=== PATIENT | female | born 1980 | race Caucasian/White ===

== ENCOUNTER 2019-04-05 04:33 | Inpatient (IN) | payer OTHER, SELFPAY ==
[2019-04-05] VITALS (7 sets, daily range): BP systolic 131–144; BP diastolic 78–85; PULSE 74–89; RESP 16–20; TEMP 36.6–37.3; O2SAT 95–99; BMI 32.3
--- NOTE | ~2019-04-05 | CT_ITS ---
EXAMINATION: CT abdomen pelvis w con DATE: 04/05/2019 06:17 INDICATION: Left sided abdominal pain with nausea, vomiting and leukocytosis TECHNIQUE: Computed tomography (CT) of the abdomen and pelvis was performed with 100 mL Omnipaque-350 intravenous contrast. Automated exposure control and iterative reconstruction technique were employe d. The dose-length product was 676.01 mGy-cm. COMPARISON: None FINDINGS: Mild dependent atelectasis in the right lower lobe. Heart size is normal. No pericardial or pleural e ffusion. Couple hepatic cysts along the julian hepatis to the larger measuring 2.[address] maximal diame ter. Pancreas, bilateral adrenal glands and left kidney are normal. Small focus of scarring at the up per pole of the right kidney likely sequela of prior infection or infarction. There is prominent jarvis pancreatic stranding with fluid extending into the bilateral anterior pararenal spaces, along the duo denum and around the colon and greater omentum in the right abdomen. Distribution suggests acute inte rstitial pancreatitis. Likely reactive edematous wall thickening of the duodenum and proximal most je junum. Appendix is normal. No bowel obstruction. 1.5 cm peripherally enhancing corpus luteum cyst at the left ovary. Uterus, bladder and right adnexa are unremarkable. Small amount of ascites primarily around the liver and in the pelvis. No free peritoneal gas or abscess. Vasculature of the abdomen and pelvis including the splenic, superior mesenteric and portal veins are normal. Moderate disc height loss and vacuum phenomena at L5-S1. Bones are otherwise unremarkable. IMPRESSION: 1. Peripancreatic inflammatory changes most consistent with radiographically uncomplicated acute inte rstitial pancreatitis. Correlate with amylase and lipase levels. Reviewed, dictated and finalized at location A. CHER FEEDER IMPRESSION: 1. Peripancreatic inflammatory changes most consistent with radiographically un complicated acute interstitial pancreatitis. Correlate with amylase and lipase levels.
--- NOTE | ~2019-04-05 | US_ITS ---
US abdomen complete INDICATION: Acute pancreatitis. PROCEDURE: Realtime right upper abdominal ultrasound. COMPARISON: No prior studies for comparison. FINDINGS: The pancreas is normal without focal mass or pancreatic ductal dilation. Liver echotexture is normal without focal mass or intrahepatic biliary dilatation. There is normal directional flow i n the portal vein. There is a small echogenic nonmobile focus of the gallbladder wall measuring 4 mm, consistent with po lyp. No gallstones, gallbladder wall thickening or pericholecystic fluid. Common bile duct measures 4 mm. Positive sonographic Goff's sign. IMPRESSION: 1: Gallbladder polyp measuring 4 mm. Positive sonographic Goff's sign, nonspecific. Consider acalcu lous cholecystitis in the appropriate clinical setting. Correlate with nuclear hepatobiliary scan as clinically indicated. Reviewed, dictated and finalized at location A. ACE HAND IMPRESSION: 1: Gallbladder polyp measuring 4 mm. Positive sonographic Goff's sign, nonspe cific. Consider acalculous cholecystitis in the appropriate clinical setting. C orrelate with nuclear hepatobiliary scan as clinically indicated.
[2019-04-05] MEDS: SODIUM CHLORIDE 0.9% IV 1,000 ML 999 ML IV CONT (04:59)
[2019-04-05] MEDS: METOCLOPRAMIDE HCL INJ 10 MG/2 ML VIAL IV PUSH (04:59)
[2019-04-05 05:18] LABS: Hematocrit 43.4 % (35.0-49.0); Hemoglobin 14.1 g/dL (12.0-15.0); Mean Corpuscular HGB Conc 32.5 g/dL (32.0-36.0); Mean Corpuscular Hemoglobin 26.8 pg (27.0-31.0); Mean Corpuscular Volume 82.4 fL (78.0-102.0); Mean Platelet Volume 10.1 fl (9.2-11.8); Platelet Count Result 304 K/mm3 (150-420); Red Blood Count 5.27 M/mm3 (4.20-5.40); Red Cell Distribution Width 13.9 % (11.6-14.4)
[2019-04-05 05:19] LABS: Appearance Urine Clear (Clear); Bilirubin Urine 1+ (Negative); Blood Urine 2+ (Negative); Color Urine Amber (Yellow); Glucose Urine UA Negative (Negative); Ketones Urine 2+ (Negative); Leukocyte Esterase Ur Negative (Negative); Nitrate Urine Negative (Negative); Protein Urine 2+ (Negative); Specific Grav Ur >= 1.030 (1.010-1.020); Urobilinogen Urine 0.2 mg/dL (0.2-1.0); pH Urine 5.5 (5.0-8.0)
--- NOTE | 2019-04-05 05:22 | ED.ABDPAIN ---
HPI - Abdominal Pain General Chief Complaint: Abdominal Pain Stated Complaint: vomitting Source: patient Mode of arrival: ambulatory History of Present Illness HPI narrative: Ms. Marquez is a 38 year old woman in a general state of good health who reports that she started to feel nauseated in the afternoon on 04/04/19. This gave way quickly to vomiting. Her nausea has persisted strongly. She now has abdominal pain. No diarrhea. No sick contacts. Related Data Allergies Allergy/AdvReac Type Severity Reaction Status Date / Time No Known Allergies Allergy Unknown Verified 03/10/07 17:24 Review of Systems Constitutional: Constitutional: Denies fatigue, Denies fever(s) and Denies weakness Eyes: Eyes: Denies blurry vision, Denies itchy eyes and Denies other visual disturbances ENT: Denies dizziness, Denies hearing loss, Denies nasal discharge and Denies sore throat Cardiovascular: Cardiovascular: Denies chest pain and Denies dyspnea Respiratory: Respiratory: Denies cough, Denies dyspnea and Denies wheezing Gastrointestinal: Gastrointestinal: Denies diarrhea, Denies nausea and Denies vomiting Genitourinary: Genitourinary: Denies difficulty starting urination, Denies dysuria and Denies urinary urgency Musculoskeletal: Musculoskeletal: Denies arthralgias and Denies muscle weakness Integumentary/Breasts: Skin/Breast: Denies rash and Denies wounds Neurologic: Denies dizziness and Denies weakness Psychiatric: Psychiatric: Denies anxiety, Denies depression and Denies suicidal ideation Endocrine: Endocrine: Denies cold intolerance, Denies fatigue and Denies heat intolerance Allergic/Immunologic: Allergic/Immunologic: Denies itchy eyes, Denies seasonal rhinorrhea and Denies wheezing PMFSH Social History Social History Smoking status: Never smoker Alcohol intake: current Exam Const: General: cooperative, healthy appearing, no acute distress, well developed and alert; No poor hygiene Nutritional Appearance: average body habitus Orientation/consciousness: oriented to person, oriented to place and oriented to time Limitations: No physical limitations HENMT: Head: normal to inspection Ears: hearing grossly normal bilaterally and external ears normal General nose exam: external nose normal Face and sinus: face symmetric and no abrasions Mouth: Yes oral mucosae normal, Yes lip normal, Yes tongue normal, Yes moist mucous membranes and No drooling Teeth and gingiva: dentition normal and gingiva normal Throat: posterior oropharynx normal and uvula midline Eyes: General: appearance normal, both eyes and all related structures Periorbital: periorbital findings normal Eyelids: eyelids normal Conjunctivae: conjunctivae normal Pupils: PERRL EOM: EOM intact bilaterally Neck: Neck: normal visual inspection Resp: Effort & Inspection: able to speak in complete sentences and no respiratory distress Auscultation: clear to auscultation bilaterally, no crackles, no rhonchi and no wheezes Cardio: Jugular venous distension: no JVD Rate: regular rate Rhythm: regular rhythm Heart sounds: no gallops, no murmurs and no rubs Skin: General skin exam: no rashes or lesions noted Trauma: no lacerations or abrasions Neuro: General: oriented to person, oriented to place and oriented to time Cranial nerves: Yes CN's II-XII intact bilaterally and Yes PERRL Cognition (Neuro): normal cognition Speech: normal speech Psych: Appearance: grossly normal Mental Status: mental status grossly normal Affect: normal affect Thought process: normal thought process Course Course Emergency Course: Primary survey revealed a hemodynamically stable woman in some obvious pain distress. Exam showed diffuse tenderness. Labs and CT ordered. IVF and reglan were not effective. Toradol added. This was also uneffective. Dilaudid given with significant improvement. Amylase and Lipase were dramatically elevated. Patient received 1 point on [place] Score (for WBC). The
[2019-04-05 05:28] LABS: Add Urine Microscopic? YES; Bacteria Urine 4+ /hpf; Squamous Epithelial Cell Urine Moderate /hpf (Few); WBC Urine 0-3 /hpf (0-3)
[2019-04-05 05:30] LABS: White Blood Count 24.6 K/mm3 (4.8-10.8)
[2019-04-05 05:35] LABS: Alanine Aminotransferase 19 U/L (14-59); Albumin Level 3.9 g/dL (3.4-5.0); Alkaline Phosphatase 47 U/L (46-116); Aspartate Amino Transferase 22 U/L (15-37); Bilirubin,Total 0.5 mg/dL (0.00-1.00); Blood Urea Nitrogen 18 mg/dL (7-18); Calcium 7.9 mg/dL (8.5-10.1); Carbon Dioxide 24 mmol/L (21-32); Chloride 105 mmol/L (98-108); Estimated Glomerular Filt Rate 57; Glucose 168 mg/dL (70-99); Osmolality Calculated 299 mOsm/kg (285-295); Sodium 142 mmol/L (136-145); Total Protein 7.4 g/dL (6.4-8.2)
[2019-04-05 05:36] LABS: Troponin I < 0.02 ng/mL (0.00-0.056)
[2019-04-05] MEDS: KETOROLAC 30 MG/ML VIAL (*BKC) IV PUSH (05:40)
[2019-04-05 05:56] LABS: Amylase 4015 U/L (25-115)
[2019-04-05] MEDS: HYDROMORPHONE HCL 2 MG/ML VIAL 1 MG IV PUSH ×6 (05:57→18:29)
--- NOTE | 2019-04-05 05:59 | PC.NURSE ---
pt to ct per stretcher with xray staff. pt resting calmly, still per cot.
[2019-04-05 06:11] LABS: Lipase 21501 U/L (73-393)
[2019-04-05 06:24] LABS: Lactic Acid 1.6 mmol/L (0.4-2.0)
--- NOTE | 2019-04-05 07:51 | PC.NURSE ---
0730 pt to go to room 209 for full admission.
--- NOTE | 2019-04-05 08:00 | PC.NURSE ---
admitting orders per dr brown. order for inpatient noted.
[2019-04-05] MEDS: SODIUM CHLORIDE 0.9% IV 1,000 ML 125 ML IV CONT (08:33)
--- NOTE | 2019-04-05 08:45 | ADMGEN ---
This patient, Danielle Marquez, was admitted to 2nd Floor Room 209-1. Patient/family oriented to hospital policies and general routines including ID bracelet, bed and alarms, visiting hours, pain management, procedures, bathroom and other care routines, personal items, smoking policy, room service/diet, and visiting hours. Valuables list has been completed. Information on how to activate the Rapid Response Team has been discussed. Patient/Family are encouraged to report perceived risks to care and to ask questions if they do not understand what they are told or what they should do.
[2019-04-05] MEDS: FAMOTIDINE 20 MG/ISO 50 ML 20 MG/50 ML BAG 100 MG IVPB (10:15)
[2019-04-05 10:34] LABS: Appearance Urine Clear (Clear); Bilirubin Urine Negative (Negative); Blood Urine 3+ (Negative); Color Urine Yellow (Yellow); Glucose Urine UA Negative (Negative); Ketones Urine 1+ (Negative); Leukocyte Esterase Ur Negative LEU/UL (Negative); Nitrate Urine Negative (Negative); Protein Urine Trace (Negative); Urobilinogen Urine 0.2 mg/dL (0.2-1.0); pH Urine 5.5 (5.0-8.0)
[2019-04-05 10:47] LABS: Amphetamine Screen Urine Negative (Negative); Barbiturate Screen Urine Negative (Negative); Benzodiazepines Screen Urine Negative (Negative); Cannabinoid Screen Urine Positive (Negative); Cocaine Screen Urine Negative (Negative); Methadone Screen Urine Negative (Negative); Opiate Screen Urine Positive (Negative); Phencyclidine Screen Urine Negative (Negative)
[2019-04-05 10:52] LABS: Add Urine Microscopic? YES; RBC Urine 0-2 /hpf (0-2); Squamous Epithelial Cell Urine Few /hpf (Few); WBC Urine 0-3 /hpf (0-3)
[2019-04-05 10:53] LABS: Bacteria Urine 1+ /hpf
--- NOTE | 2019-04-05 11:00 | PC.NURSE ---
Abdominal ultrasound being performed on pt in room.
[2019-04-05] MEDS: ONDANSETRON INJ 4 MG/2 ML VIAL IV PUSH (13:30)
[2019-04-05] MEDS: LIDOCAINE 5% PATCH 2 PATCH TRANSDERM (13:35)
--- NOTE | 2019-04-05 15:29 | PM.IMHP ---
H&P: HPI History of Present Illness Chief complaint: vomitting Narrative: Danielle Marquez is a 38 year old female admitted earlier this morning. She stated that she was fine until yesterday evening. She reported that her family went out for [place] food for dinner, then around 6pm she started vomiting without relief until 2am. With no relief, she asked her to bring her to the ER around 4am. She stated that she threw up her dinner and then green bile for emesis. No complaints of pain until vomiting started. 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 She also does report having more fried foods during the holidays than usual. Current Urine toxic screen + Cannabinoids, History of Tubal Ligation, History of Excision of Left Breast Retro Aerolar Mass by Dr. Solis in January 2019 (with prior Breast Infection at the same site in August 2017), No prior history of Hyperlipidemia, No previous cholecyctitis or pancreatitis, No alcohol abuse (reports 1 wine daily, 1 shot with New Years), No history of nicotine/cigarette smoking, No history of DM. Drinks 1 glass wine daily and 1 diet mountain dew daily. Review of Systems Review of Systems: All systems reviewed & are unremarkable except as noted in HPI and below Constitutional: Constitutional: Reports as per HPI, Denies fatigue, Denies fever(s) and Denies weakness Eyes: Eyes: Denies blurry vision, Denies itchy eyes and Denies other visual disturbances ENT: Denies dizziness, Denies hearing loss, Denies nasal discharge and Denies sore throat Cardiovascular: Cardiovascular: Reports as per HPI, Denies chest pain and Denies dyspnea Respiratory: Respiratory: Reports as per HPI, Denies cough, Denies dyspnea and Denies wheezing Gastrointestinal: Gastrointestinal: Reports as per HPI, Reports abdominal pain, Reports bloating, Reports GI cramping, Reports heartburn, Denies diarrhea, Denies nausea and Denies vomiting Comments: Nausea and Vomiting . Abdominal discomfort with ice chips or any oral intake. Genitourinary: Genitourinary: Denies urinary frequency, Denies dysuria and Denies urinary urgency Musculoskeletal: Musculoskeletal: Reports as per HPI, Denies arthralgias and Denies muscle weakness Integumentary/Breasts: Skin/Breast: Reports as per HPI, Denies rash and Denies wounds Neurologic: Reports as per HPI, Denies dizziness and Denies weakness Psychiatric: Psychiatric: Reports as per HPI, Denies anxiety, Denies depression and Denies suicidal ideation Endocrine: Endocrine: Denies cold intolerance, Denies fatigue and Denies heat intolerance Allergic/Immunologic: Allergic/Immunologic: Denies itchy eyes, Denies seasonal rhinorrhea and Denies wheezing PMFSH Surgical History Surgical History (Updated 04/05/19 @ 17:04 by Jennifer Jaime NP) H/O tubal ligation History of breast lump/mass excision Family History Family History (Updated 04/05/19 @ 17:06 by Jennifer Jaime NP) Father Hypertension Mother Cholecystectomy planned Sibling , Brother - MVA Motor vehicle accident victim Other Breast cancer Social History Social History Smoking status: Never smoker Alcohol intake: never Substance use: never Substance use type: does not use Gender identity (if verbalized by the patient): Female Spiritual care concerns: No Agree to blood products: Yes Meds Home Medications and Allergies Home Medications Medication Instructions Recorded Confirmed Type mirtazapine 15 mg tablet 15 mg PO DAILY #30 tablet 02/22/19 04/05/19 Rx trazodone 50 mg tablet 50 mg PO .HS #30 tablet 03/26/19 04/05/19 Rx hydromorphone 1 mg IVPUSH Q3H PRN 1 Days ml 04/05/19 Rx Allergies Allergy/AdvReac Type Severity Reaction Status Date / Time No Known Allergies Allergy Unknown Verified 03/10/07 17:24 Vital Signs Vital Signs - 24 hr 04/05/19 04:50 04/05/19 07:52 04/05/19 08:05 Temperature 37.0 C 36.6 C 36.8 C Pulse Ra
[2019-04-05] MEDS: metroNIDAZOLE 500 MG/ISO 100ML 500 MG/100 ML BAG 100 MG IVPB (16:13)
[2019-04-05] MEDS: PROCHLORPERAZINE EDISYLATE 10 MG/2 ML VIAL IV PUSH (17:47)
[2019-04-05] MEDS: SODIUM CHLORIDE 0.9% IV 1,000 ML 200 ML IV CONT (17:58)
--- NOTE | 2019-04-05 18:08 | PC.NURSE ---
Patient attempted to get up into recliner, was only able to tolerate for a few minutes before getting back in bed. Patient given a warm blanket to hold on abdomen for comfort
--- NOTE | 2019-04-05 19:25 | PC.NURSE ---
Received call from [facility], bed is now available at [place]. Patient will be transferred to Room 212 bed B
--- NOTE | 2019-04-05 19:30 | PC.NURSE ---
Report called to Miguel at [place]
--- NOTE | 2019-04-05 19:35 | PC.NURSE ---
RN called [facility] service to request ALS transfer of patient. None available until 2200. RN will call again if no one else available
--- NOTE | 2019-04-05 19:37 | PC.NURSE ---
RN called [facility] ambulance service to request ALS transfer for patient. None available at this time. Asha will call back when ambulance becomes available
--- NOTE | 2019-04-05 19:40 | PC.NURSE ---
[facility] ambulance service called for transfer, none available
--- NOTE | 2019-04-05 19:45 | PC.NURSE ---
[facility] ambulance service called for ALS transfer of patient. [facility] accepts patient for transfer at [id number]
[2019-04-05 20:08] LABS: Hematocrit 42.7 % (35.0-49.0); Hemoglobin 13.9 g/dL (12.0-15.0); Mean Corpuscular HGB Conc 32.6 g/dL (32.0-36.0); Mean Corpuscular Hemoglobin 27.3 pg (27.0-31.0); Mean Corpuscular Volume 83.7 fL (78.0-102.0); Mean Platelet Volume 9.8 fl (9.2-11.8); Platelet Count Result 288 K/mm3 (150-420); Red Cell Distribution Width 14.4 % (11.6-14.4)
[2019-04-05 20:12] LABS: White Blood Count 30.6 K/mm3 (4.8-10.8)
[2019-04-05 20:28] LABS: Alanine Aminotransferase 18 U/L (14-59); Albumin Level 3.2 g/dL (3.4-5.0); Alkaline Phosphatase 41 U/L (46-116); Anion Gap 13.7 mmol/L (7-16); Aspartate Amino Transferase 24 U/L (15-37); Bilirubin,Total 0.4 mg/dL (0.00-1.00); Blood Urea Nitrogen 17 mg/dL (7-18); Carbon Dioxide 25 mmol/L (21-32); Chloride 108 mmol/L (98-108); Estimated CRCL calculation 73 ml/min; Estimated Glomerular Filt Rate > 60; Glucose 112 mg/dL (70-99); Osmolality Calculated 298 mOsm/kg (285-295); Potassium 3.7 mmol/L (3.5-5.1); Sodium 143 mmol/L (136-145); Total Protein 6.3 g/dL (6.4-8.2)
--- NOTE | 2019-04-05 20:30 | PC.NURSE ---
Asha from [place] ambulance service called, she will page out for ambulance for transfer. RN called and cancelled Jarred.
[2019-04-05 20:41] LABS: Calcium 5.9 mg/dL (8.5-10.1)
[2019-04-05 20:44] LABS: Amylase 2449 U/L (25-115); Lipase 10618 U/L (73-393)
[2019-04-05] MEDS: HYDROMORPHONE HCL 2 MG/ML VIAL 0.5 MG IV PUSH (20:55)
--- NOTE | 2019-04-05 20:58 | PC.NURSE ---
MD notified that patient is moaning and c/o pain. Ambulance crew requested order for prn for during transport if patient was experiencing pain. New order recieved for Morphine 4mg prn during transfer.
--- NOTE | 2019-04-05 21:00 | PC.NURSE ---
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 Patient ambulated from bed to stretcher. Patient off floor en route to [facility]. Miguel at [facility] notified patient en route
--- NOTE | 2019-04-06 05:32 | PM.EVENT ---
Event Note Event Note: For 04/05/19: Patient states pain medicines are helping somewhat, but pain is escalating. Vitals remained stable. Normal cardiovascular and lung exam. No peritoneal signs at this time. Surgical consultation therefore transfers appropriate at this time. Have reviewed the chart and examined the patient. Discussed patient's care A Addison AMARO and agree with her assessment plan.
== END 2019-04-05 21:00 | disposition short-term general hospital (02) | DRG 282 ==
LOC: CHSED 07:31 → CHS2ND 07:32
PROVIDERS: Nurse Practitioner; Admitting Provider Emergency Medicine; Emergency Provider Emergency Medicine; PCP Family Medicine; Visit Provider Emergency Medicine
DX: K85.90 Acute pancreatitis without necrosis or infection, unspecified (principal); K81.0 Acute cholecystitis
CPT/HCPCS: 36415; 74177; 76700; 80053; 80307; 81001; 82150; 83605; 83690; 84484; 85027; 87040; 87077; 87086; 96361; 96365; 96375; 99284; 99285; A9270; J0696; J0780; J1170; J1885; J2405; J2543; J2765; J7030; Q9965

== ENCOUNTER 2019-08-14 12:58 | Outpatient (CLI) | payer OTHER, SELFPAY ==
[2019-08-14 14:30] LABS: Alanine Aminotransferase 18 U/L (14-59); Albumin Level 3.9 g/dL (3.4-5.0); Alkaline Phosphatase 56 U/L (46-116); Anion Gap 14.2 mmol/L (7-16); Aspartate Amino Transferase 18 U/L (15-37); Bilirubin,Total 0.1 mg/dL (0.00-1.00); Blood Urea Nitrogen 12 mg/dL (7-18); Carbon Dioxide 28 mmol/L (21-32); Chloride 103 mmol/L (98-108); Estimated Glomerular Filt Rate > 60; Glucose 82 mg/dL (70-99); Osmolality Calculated 290 mOsm/kg (285-295); Potassium 4.2 mmol/L (3.5-5.1); Sodium 141 mmol/L (136-145); Thyroid Stimulating Hormone 0.48 uIU/mL (0.36-3.74); Vitamin B12 593 pg/mL (193-986)
[2019-08-18 09:44] LABS: Vitamin D 25 Hydroxy 37 ng/mL (30-100)
== END 2019-08-14 12:59 | disposition home or self-care (01) ==
LOC: CHSLAB 13:01
PROVIDERS: PCP Nurse Practitioner Family; Visit Provider Nurse Practitioner Family
DX: L65.9 Nonscarring hair loss, unspecified (principal); E55.9 Vitamin D deficiency, unspecified
CPT/HCPCS: 36415; 80053; 82306; 82607; 84443

== ENCOUNTER 2019-10-25 04:34 | Emergency (ER) | payer OTHER, SELFPAY ==
[2019-10-25] VITALS (7 sets, daily range): BP systolic 95–160; BP diastolic 50–92; PULSE 65–109; RESP 16–20; TEMP 36.6–36.9; O2SAT 96–100
--- NOTE | ~2019-10-25 | CT_ITS ---
EXAMINATION: CT abdomen pelvis wo con DATE: 10/25/2019 06:40 INDICATION: Generalized abdominal pain. Hematuria. TECHNIQUE: Computed tomography (CT) of the abdomen and pelvis was performed without intravenous contr ast. Automated exposure control and iterative reconstruction technique were employed. The dose-length product was 499.32 mGy-cm. COMPARISON: CT abdomen and pelvis 04/05/2019 FINDINGS: The visualized portions of the lung bases are clear without pneumonia or pleural effusion. The heart size is normal. No pericardial effusion. There is a 2.1 cm cyst in the liver. There are sofi nges of cholecystectomy. The spleen is normal. There is fat stranding around the uncinate process of the pancreas. The adrenal glands and kidneys are normal. There is no urolithiasis. There is a 3.9 x 2 .4 cm mass anterior and to the right of the pancreas. There is diverticulosis of the colon without ev idence of diverticulitis. The appendix is normal. There are no pathologically enlarged lymph nodes. T here is a small volume of pelvic ascites. There is severe lower lumbar spondylosis. IMPRESSION: 1. Fat stranding around the uncinate process of the pancreas, consistent with acute pancreatitis. 2. New mass anterior and to the right of the pancreas, most likely fat necrosis from acute pancreatit is. Reviewed, dictated and finalized at location A. IMPRESSION: 1. Fat stranding around the uncinate process of the pancreas, consistent with a cute pancreatitis. 2. New mass anterior and to the right of the pancreas, most likely fat necrosis from acute pancreatitis.
[2019-10-25] MEDS: HYDROmorphone HCL 2 MG/ML VIAL 1 MG IV PUSH ×5 (05:13→20:58)
[2019-10-25] MEDS: SODIUM CHLORIDE 0.9% IV 1,000 ML 999 ML IV CONT ×3 (05:14→11:13)
[2019-10-25] MEDS: ONDANSETRON INJ 4 MG/2 ML VIAL IV PUSH ×5 (05:14→22:03)
[2019-10-25 05:20] LABS: Basophils Absolute Auto 0.04 K/mm3 (0.00-0.10); Basophils Percent Auto 0.3 % (0.0-1.0); Eosinophils Absolute Auto 0.32 K/mm3 (0.02-0.50); Hematocrit 44.2 % (35.0-49.0); Hemoglobin 14.4 g/dL (12.0-15.0); Immature Granulocyte Absolute 0.05 K/mm3 (0.00-0.00); Immature Granulocyte Percent A 0.3 % (0.0-0.0); Lymphocytes Absolute Auto 0.71 K/mm3 (1.10-4.50); Lymphocytes Percent Auto 4.5 % (18.0-42.0); Mean Corpuscular HGB Conc 32.6 g/dL (32.0-36.0); Mean Corpuscular Hemoglobin 28.1 pg (27.0-31.0); Mean Corpuscular Volume 86.2 fL (78.0-102.0); Mean Platelet Volume 9.6 fl (9.2-11.8); Monocytes Percent Auto 7.6 % (2.0-11.0); Neutrophils Absolute Auto 13.6 K/mm3 (1.7-7.2); Neutrophils Percent Auto 85.3 % (50.0-70.0); Platelet Count Result 272 K/mm3 (150-420); Red Blood Count 5.13 M/mm3 (4.20-5.40); Red Cell Distribution Width 14.7 % (11.6-14.4); White Blood Count 15.9 K/mm3 (4.8-10.8)
[2019-10-25 05:34] LABS: Alanine Aminotransferase 27 U/L (14-59); Albumin Level 3.7 g/dL (3.4-5.0); Alkaline Phosphatase 64 U/L (46-116); Amylase 70 U/L (25-115); Anion Gap 11.1 mmol/L (7-16); Aspartate Amino Transferase 21 U/L (15-37); Bilirubin,Total 0.2 mg/dL (0.00-1.00); Blood Urea Nitrogen 16 mg/dL (7-18); CRP 0.9 mg/dL (0.0-0.9); Calcium 9.3 mg/dL (8.5-10.1); Carbon Dioxide 30 mmol/L (21-32); Chloride 105 mmol/L (98-108); Estimated CRCL calculation 57 ml/min; Estimated Glomerular Filt Rate 53; Glucose 91 mg/dL (70-99); Lipase 109 U/L (73-393); Osmolality Calculated 295 mOsm/kg (285-295); Potassium 4.1 mmol/L (3.5-5.1); Sodium 142 mmol/L (136-145); Total Protein 7.5 g/dL (6.4-8.2)
[2019-10-25 05:49] LABS: Add Urine Microscopic? YES; Appearance Urine Clear (Clear); Bilirubin Urine Negative (Negative); Blood Urine 2+ (Negative); Color Urine Yellow (Yellow); Glucose Urine UA Negative (Negative); Ketones Urine Trace (Negative); Leukocyte Esterase Ur Negative LEU/UL (Negative); Nitrate Urine Negative (Negative); Protein Urine Negative (Negative); Urobilinogen Urine 0.2 mg/dL (0.2-1.0); pH Urine 6.5 (5.0-8.0)
--- NOTE | 2019-10-25 05:50 | PC.NURSE ---
Pt. is resting comfortable, dozing no c/o a this time.
[2019-10-25 06:03] LABS: Bacteria Urine 1+ /hpf; Squamous Epithelial Cell Urine Many /hpf (Few); WBC Urine 0-3 /hpf (0-3)
--- NOTE | 2019-10-25 06:11 | ED.ABDPAIN ---
HPI - Abdominal Pain General Chief Complaint: Abdominal Pain <Song Kumar MD - Last Filed: 10/25/19 07:18> Stated Complaint: vomiting <Song Kumar MD - Last Filed: 10/25/19 07:18> Time Seen by Provider: 10/25/19 10:28 <Song Kumar MD - Last Filed: 10/25/19 07:18> Source: RN notes reviewed <Song Kumar MD - Last Filed: 10/25/19 07:18> Mode of arrival: ambulatory <Song Kumar MD - Last Filed: 10/25/19 07:18> Limitations: no limitations <Song Kumar MD - Last Filed: 10/25/19 07:18> History of Present Illness HPI narrative: patient has a long history of abdominal problems and pancreatitis. She has been to [place] multiple times and had multiple CT scans. She has a history of pseudocysts. She had cholecystectomy done. She is currently seeing GI specialist. She began having pain last evening approximately 9:00 p.m.. She had some diarrhea and tried to write out the pain at home. She started vomiting she thought her pancreatitis had returned and she came in for evaluation. She denies any fever chills. <Song Kumar MD - Last Filed: 10/25/19 07:18> MD elicited complaint: abdominal pain <Song Kumar MD - Last Filed: 10/25/19 07:18> Pertinent past history: other (pancreatitis) <Song Kumar MD - Last Filed: 10/25/19 07:18> Onset (ago): hour(s) (7) <Song Kumar MD - Last Filed: 10/25/19 07:18> Pain Consistency: constant <Song Kumar MD - Last Filed: 10/25/19 07:18> Location: diffuse <Song Kumar MD - Last Filed: 10/25/19 07:18> Severity: severe <Song Kumar MD - Last Filed: 10/25/19 07:18> Quality: cramping and sharp <MD Jim Jiménez Last Filed: 10/25/19 07:18> Migration to: no migration <Song Kumar MD - Last Filed: 10/25/19 07:18> Exacerbating factors: nothing <Song Kumar MD - Last Filed: 10/25/19 07:18> Relieving factors: nothing <Song Kumar MD - Last Filed: 10/25/19 07:18> Context: confirms history of similar episodes <Song Kumar MD - Last Filed: 10/25/19 07:18> Associated symptoms: vomiting and diarrhea <Song Kumar MD - Last Filed: 10/25/19 07:18> Related Data Home Medications: Home Medications Medication Instructions Recorded Confirmed omeprazole magnesium 20 mg 20 mg PO DAILY 08/08/19 10/25/19 capsule,delayed release [id number] [Creon] 1 cap PO DAILY 10/25/19 10/25/19 <Song Kumar MD - Last Filed: 10/25/19 07:18> Allergies/Adverse Reactions: Allergies Allergy/AdvReac Type Severity Reaction Status Date / Time No Known Allergies Allergy Unknown Verified 10/24/19 16:37 <Song Kumar MD - Last Filed: 10/25/19 07:18> Review of Systems Constitutional: Constitutional: Denies chills and Denies fever(s) <Song Kumar MD - Last Filed: 10/25/19 07:18> Eyes: Eyes: Reports no additional eye complaints <Song Kumar MD - Last Filed: 10/25/19 07:18> ENT: Reports system reviewed and no additional complaints, except as documented <Song Kumar MD - Last Filed: 10/25/19 07:18> Cardiovascular: Cardiovascular: Reports no additional cardiovascular complaints <Song Kumar MD - Last Filed: 10/25/19 07:18> Respiratory: Respiratory: Reports no additional respiratory complaints <Song Kumar MD - Last Filed: 10/25/19 07:18> Gastrointestinal: Gastrointestinal: Reports as per HPI <Song Kumar MD - Last Filed: 10/25/19 07:18> Genitourinary: Genitourinary: Reports no additional female genitourinary complaints <Song Kumar MD - Last Filed: 10/25/19 07:18> Musculoskeletal: Musculoskeletal: Reports no additional musculoskeletal complaints <Song Kumar MD - Last Filed: 10/25/19 07:18> Integumentary/Breasts: Skin/Breast: Reports system reviewed and no additional complaints, except as docu <Song Kumar MD - Last Filed: 10/25/19 07:18> Neurologic: Reports
--- NOTE | 2019-10-25 07:07 | PC.NURSE ---
Call placed to [facility] where pts. GI Drs. are located. Pt. requests transfer to [facility] for further care. ERP requests call to hospitalist or GI specialist. Spoke to transfer center, will consult c GI,
--- NOTE | 2019-10-25 07:39 | PC.NURSE ---
Pt. now requesting transfer to [facility] and to see GI specialist at [facility] Will await call back from hospitalist.
--- NOTE | 2019-10-25 07:58 | PC.NURSE ---
Call back from Dr. Kitchen at [facility]. ERP speaking c and he requests pt. to see her original Drs. as their GI Drs won't accept for this hx of complication. Call back then received from [facility] and ERP spoke to Dr. Ochoa for possible transfer.
[2019-10-25] MEDS: METOCLOPRAMIDE HCL INJ 10 MG/2 ML VIAL IV PUSH (08:20)
--- NOTE | 2019-10-25 10:22 | PC.NURSE ---
Call placed back to [facility] for bed assignment. Pt. is on list and awaiting bed assignment. ERP notified and is going to make pt. ER hold until bed is available.
--- NOTE | 2019-10-25 10:45 | PC.NURSE ---
Report given to Breana Martínez and pt. will go to Rm 203 for ER hold.
--- NOTE | 2019-10-25 11:05 | PC.NURSE ---
Dr. Belle made aware of patient saw yesterday and was put on Clindamycin for breast infection. Patient forgot to tell ED staff of information until up on floor for ER HOLD.
--- NOTE | 2019-10-25 11:05 | PC.NURSE ---
Admitted to 203 for ER hold, awaiting bed at [facility], requesting medication that was prescribed yesterday by Dr Prajapati for breast infection, Dr Belle reports this med not needed at this time, patient made aware, oriented to room and call system,
--- NOTE | 2019-10-25 11:20 | PC.NURSE ---
Dilaudid given for pain in abdomen
--- NOTE | 2019-10-25 11:41 | PC.NURSE ---
No evidence of pain, fluids infusing and playing on phone
--- NOTE | 2019-10-25 12:12 | PC.NURSE ---
No increase in pain, fluids infusing, npo as ordered,
--- NOTE | 2019-10-25 13:15 | PC.NURSE ---
Resting in bed, no vomiting, no increase in pain, saline lock in place, remains NPO at this time, continue to wait for bed at [facility]
--- NOTE | 2019-10-25 14:15 | PC.NURSE ---
Resting in bed, awaiting bed assignment from [facility]
--- NOTE | 2019-10-25 15:58 | PC.NURSE ---
pt c/o dry mouth and that she will not make it the whole stay without her anxiety medicine, asks for ice chips, has declined and will start her on fluids
[2019-10-25] MEDS: SODIUM CHLORIDE 0.9% IV 1,000 ML 100 ML (16:00)
--- NOTE | 2019-10-25 16:01 | PC.NURSE ---
[facility] CALLED TO INFORM [facility] THAT THEY DO NOT HAVE A BED READY FOR THE PATIENT BUT ARE STILL WORKING ON IT. 2ND FLOOR STAFF MADE AWARE.
--- NOTE | 2019-10-25 18:09 | PC.NURSE ---
pt states her head hurts, asks for something different for pain, friend is in room, feeling nauseous, aware charge nurse is calling dr about getting her anxiety medicine
--- NOTE | 2019-10-25 21:01 | PC.NURSE ---
pt is crying, asking for xanax and trazadone, states she is having an anxiety attack and will leave soon if dr does not order her something, requests fluids be turned off or faster so she does not have to sleep with them on, charge nurse to notify
[2019-10-25] MEDS: LORazepam 0.5 MG TABLET PO (22:01)
--- NOTE | 2019-10-26 00:12 | PC.NURSE ---
Pt resting quietly in bed and doesnt voice any c/o abdominal pain. No signs of discomfort noted.
[2019-10-26 00:15] VITALS: PULSE 70; RESP 20; TEMP 36.8; O2SAT 100
--- NOTE | 2019-10-26 01:25 | PC.NURSE ---
[facility] called and said they will be getting the patient a bed at [facility] in the AM. Pt asleep and no signs of discomfort noted.
--- NOTE | 2019-10-26 02:21 | PC.NURSE ---
Pt asleep and no signs of discomfort noted.
--- NOTE | 2019-10-26 03:11 | PC.NURSE ---
Pt asleep and no signs of discomfort noted.
--- NOTE | 2019-10-26 04:21 | PC.NURSE ---
Pt asleep and no signs of discomfort noted.
--- NOTE | 2019-10-26 05:12 | PC.NURSE ---
Pt asleep and no signs of discomfort noted.
--- NOTE | 2019-10-26 06:08 | PC.NURSE ---
Pt asleep and no signs of discomfort noted.
--- NOTE | 2019-10-26 06:49 | PC.NURSE ---
Dr. Belle contacted for a diet order. NPO diet order received.
[2019-10-26 07:35] VITALS: BP 133/93; PULSE 101; RESP 18; TEMP 36.8; O2SAT 95
[2019-10-26] MEDS: LORazepam 0.5 MG TABLET PO ×3 (07:51→21:15)
--- NOTE | 2019-10-26 07:51 | PC.NURSE ---
Ativan given for anxiety, feels no one is paying attention to her needs, advised would have ER doctor review everything and be in to see her, pain in abdomen is gone, now having headache,
[2019-10-26] MEDS: MORPHINE SULFATE 2 MG/ML INJ IV PUSH ×2 (07:52→14:11)
--- NOTE | 2019-10-26 07:52 | PC.NURSE ---
Morphine 2 mg given for anxiety and pain in head, denies nausea initially, now having nausea
[2019-10-26] MEDS: ONDANSETRON INJ 4 MG/2 ML VIAL IV PUSH ×2 (08:01→14:11)
--- NOTE | 2019-10-26 08:01 | PC.NURSE ---
Zofran 4mg given for nausea
--- NOTE | 2019-10-26 08:05 | PC.NURSE ---
Dr Arellano at the bedside for examination, reviewed her complaint and assessed her breast pain/infection, no redness noted at this time
--- NOTE | 2019-10-26 10:00 | PC.NURSE ---
Continues to have pain in her head, awaiting bed at [facility] at this time
[2019-10-26] MEDS: ACETAMINOPHEN 500 MG TABLET 1000 MG PO (10:35)
--- NOTE | 2019-10-26 10:40 | PC.NURSE ---
Tylenol given for headache, here with patient, no bed at this time from [facility]
--- NOTE | 2019-10-26 12:28 | PC.NURSE ---
This nurse spoke with Cyndee on the [facility] one call line([phone]). States placement for patient is still not available. Reports that they are waiting on discharges and transfers. This nurse provided charge nurse call back number. Cyndee states she will call back when placement is found. Patient made aware.
--- NOTE | 2019-10-26 12:28 | PC.NURSE ---
Still no bed at [facility], waiting on discharges and transfers, cannot give a time, patient sleeping at this time
--- NOTE | 2019-10-26 12:55 | PC.NURSE ---
Patient notified that no beds at [facility] at this time, patient frustrated, wants to speak with doctor
--- NOTE | 2019-10-26 13:21 | PC.NURSE ---
Ativan given for anxiety, wanting to leave, can't stay here any longer, anxious
--- NOTE | 2019-10-26 13:53 | PC.NURSE ---
Dr Arellano in to speak with patient and now Dr Arellano wants to speak with [facility] physician regarding possibility of follow up as outpatient
--- NOTE | 2019-10-26 14:17 | PC.NURSE ---
patient has decided that she will wait for a bed assignment at [facility] rather than dc to home, more calm, morphine and zofran given for pain in left abdomen
[2019-10-26 14:25] VITALS: BP 130/88; PULSE 96; RESP 20; TEMP 37.5; O2SAT 95
[2019-10-26 15:31] LABS: Basophils Absolute Auto 0.03 K/mm3 (0.00-0.10); Basophils Percent Auto 0.3 % (0.0-1.0); Eosinophils Absolute Auto 0.13 K/mm3 (0.02-0.50); Eosinophils Percent Auto 1.1 % (1.0-6.0); Hemoglobin 15.3 g/dL (12.0-15.0); Immature Granulocyte Absolute 0.04 K/mm3 (0.00-0.00); Immature Granulocyte Percent A 0.3 % (0.0-0.0); Lymphocytes Absolute Auto 0.55 K/mm3 (1.10-4.50); Lymphocytes Percent Auto 4.7 % (18.0-42.0); Mean Corpuscular HGB Conc 31.2 g/dL (32.0-36.0); Mean Corpuscular Hemoglobin 28.4 pg (27.0-31.0); Mean Corpuscular Volume 91.1 fL (78.0-102.0); Mean Platelet Volume 9.7 fl (9.2-11.8); Monocytes Absolute Auto 0.51 K/mm3 (0.10-0.90); Monocytes Percent Auto 4.3 % (2.0-11.0); Neutrophils Absolute Auto 10.5 K/mm3 (1.7-7.2); Neutrophils Percent Auto 89.3 % (50.0-70.0); Platelet Count Result 265 K/mm3 (150-420); Red Blood Count 5.38 M/mm3 (4.20-5.40); Red Cell Distribution Width 14.4 % (11.6-14.4); White Blood Count 11.8 K/mm3 (4.8-10.8)
[2019-10-26 15:46] LABS: Alanine Aminotransferase 32 U/L (14-59); Albumin Level 3.9 g/dL (3.4-5.0); Alkaline Phosphatase 65 U/L (46-116); Anion Gap 16.9 mmol/L (7-16); Aspartate Amino Transferase 30 U/L (15-37); Bilirubin,Total 0.6 mg/dL (0.00-1.00); Blood Urea Nitrogen 8 mg/dL (7-18); Calcium 8.9 mg/dL (8.5-10.1); Carbon Dioxide 22 mmol/L (21-32); Chloride 102 mmol/L (98-108); Estimated CRCL calculation 67 ml/min; Estimated Glomerular Filt Rate > 60; Glucose 66 mg/dL (70-99); Lipase 53 U/L (73-393); Osmolality Calculated 280 mOsm/kg (285-295); Potassium 3.9 mmol/L (3.5-5.1); Sodium 137 mmol/L (136-145); Total Protein 7.9 g/dL (6.4-8.2)
--- NOTE | 2019-10-26 16:26 | PC.NURSE ---
More relaxed at this time, requesting dilaudid for pain, notified
[2019-10-26] MEDS: HYDROmorphone HCL 2 MG/ML VIAL 1 MG IV PUSH (18:00)
--- NOTE | 2019-10-26 18:32 | PC.NURSE ---
Resting quietly at this time
[2019-10-26 20:00] VITALS: BP 110/68; PULSE 76; RESP 16; TEMP 36; O2SAT 98
--- NOTE | 2019-10-26 20:00 | PC.NURSE ---
Patient resting in bed talking on her cell phone. Patient reports left abdominal pain now @ 6 on 0-10 scale. No distress noted. Call light in reach.
--- NOTE | 2019-10-26 20:30 | PC.NURSE ---
Patient requesting Trazodone 50mg that she says she takes every night @ home and wants another dose of Ativan instead of waiting the full 12 hours until it's due. Dr Arellano says he'll put the orders in pretty soon and if he doesn't in about half an hour to call him. Patient notified.
[2019-10-26] MEDS: traZODone HCL 50 MG TABLET PO (21:14)
--- NOTE | 2019-10-26 21:20 | PC.NURSE ---
Patient given Trazodone and Ativan as ordered.
--- NOTE | 2019-10-26 22:30 | PC.NURSE ---
Patient appears to be sleeping by the rise and fall of her chest. Respirations even and unlabored. No distress noted. Call light in reach.
[2019-10-27 00:45] VITALS: BP 104/64; PULSE 91; RESP 20; TEMP 36.4; O2SAT 99
--- NOTE | 2019-10-27 01:16 | PC.NURSE ---
PAtient resting in bed. Vital signs obtained. Personal items are within reach.
--- NOTE | 2019-10-27 01:30 | PC.NURSE ---
Patient asked this nurse to talk with Dr Arellano and see if she can just go home and follow up with on her own. This nurse called Dr Arellano and he said patient needs to wait to be transferred and if she decides to leave it with have to be AMA. AMA choice explained to patient and patient says she knows her insurance wouldn't pay for her visit if she leaves AMA. Patient decided to stay.
[2019-10-27] MEDS: HYDROmorphone HCL 2 MG/ML VIAL 1 MG IV PUSH (01:36)
[2019-10-27] MEDS: ONDANSETRON INJ 4 MG/2 ML VIAL IV PUSH (01:39)
--- NOTE | 2019-10-27 02:03 | PC.NURSE ---
Patient resting in bed she had received dilaudid for pain and Zofran for nausea and she states that her pain is now down to a 4 from an 8. She was taken some ice water per request. Patient wants nurse to talk to the doctor about continuing home Omeprazole in the morning, charge nurse was informed. i
--- NOTE | 2019-10-27 03:47 | PC.NURSE ---
Patient sleeping. No signs of pain or distress are observed.
[2019-10-27 04:35] VITALS: BP 111/66; PULSE 97; RESP 20; TEMP 36.8; O2SAT 99
--- NOTE | 2019-10-27 08:02 | PC.NURSE ---
patient upset cries and wants to be trtansfered right now to [facility]. upset that she is wasting her time here. denies pain in abd unless pushed around on. up ad noelle in room. c/o that her acid reflux is burning her throat. wants dr to come dc her. erp aware and new orders for reflux given.. he claims he needs to wait for bed. she can leave ama. patient does not want to leave [facility]a. cont to demand dc her. explained they do not feel she is stable enough to dc at this time. upset she has famiy at home and she needs to be somewhere her doctor is and not here.-------nila ruiz
--- NOTE | 2019-10-27 08:29 | PC.NURSE ---
newspaper writer called [facility] access line, continued without beds at this time. aware.
--- NOTE | 2019-10-27 08:34 | ED.ABDPAIN ---
HPI - Abdominal Pain General Chief Complaint: Abdominal Pain Stated Complaint: vomiting Time Seen by Provider: 10/25/19 10:28 Source: RN notes reviewed Mode of arrival: ambulatory Limitations: no limitations History of Present Illness MD elicited complaint: abdominal pain Pertinent past history: other (pancreatitis) Onset (ago): hour(s) (7) Pain Consistency: constant Location: diffuse Severity: severe Quality: cramping and sharp Migration to: no migration Exacerbating factors: nothing Relieving factors: nothing Context: confirms history of similar episodes Associated symptoms: vomiting and diarrhea Related Data Home Medications Medication Instructions Recorded Confirmed omeprazole magnesium 20 mg 20 mg PO DAILY 08/08/19 10/25/19 capsule,delayed release [id number]-[id number] [Creon] 1 cap PO DAILY 10/25/19 10/25/19 Allergies Allergy/AdvReac Type Severity Reaction Status Date / Time No Known Allergies Allergy Unknown Verified 10/24/19 16:37 [facility] Past Medical History Medical History Acute acalculous cholecystitis AVRIL (generalized anxiety disorder) GERD (gastroesophageal reflux disease) Pseudocyst of pancreas Surgical History Surgical History H/O tubal ligation History of breast lump/mass excision History of cholecystectomy Family History Family History Father Hypertension Mother Cholecystectomy planned Sibling , Brother - MVA Motor vehicle accident victim Other Breast cancer Social History Social History Smoking status: Never smoker Alcohol intake: never Substance use: current Substance use type: marijuana Last use: daily Gender identity (if verbalized by the patient): Female Spiritual care concerns: No Agree to blood products: Yes Course Course Emergency Course: Patient has been in ER hold for the last 3 days awaiting a bed at [facility]. After reassessment of patient this morning the patient is frustrated at the wait time for transfer, she is currently stable no abdominal pain her white count has decreased from 15,000 to 11,000 there is no abdominal pain elicited her lipase has decreased to 59 a. The patient understands that if symptoms persist or worsen that she go directly to [facility] emergency department or return to our emergency department for further evaluation and treatment. Can follow-up with her GI doctors at the [facility] for further evaluation treatment. Vital Signs Vital signs: Vital Signs Temperature 36.9 C 10/25/19 04:53 Pulse Rate 109 H 10/25/19 04:53 Respiratory Rate 20 10/25/19 04:53 Blood Pressure 160/92 H 10/25/19 04:53 Pulse Oximetry 99 10/25/19 04:53 Temperature 36.8 C 10/27/19 04:35 Pulse Rate 97 10/27/19 04:35 Respiratory Rate 10/27/19 04:35 Blood Pressure 111/66 10/27/19 04:35 Pulse Oximetry 99 10/27/19 04:35 MDM - Abdominal Pain Lab Data Result diagrams: 10/26/19 15:25 10/26/19 15:25 Labs: Lab Results 10/25/19 10/25/19 10/25/19 Range/Units 05:15 05:15 05:26 WBC 15.9 H (4.8-10.8) K/mm3 RBC 5.13 (4.20-5.40) M/mm3 Hgb 14.4 (12.0-15.0) g/dL Hct 44.2 (35.0-49.0) % MCV 86.2 (78.0-102.0) fL MCH 28.1 (27.0-31.0) pg MCHC 32.6 (32.0-36.0) g/dL RDW 14.7 H (11.6-14.4) % Plt Count 272 (150-420) K/mm3 MPV 9.6 (9.2-11.8) fl Immature Gran % (Auto) 0.3 H (0.0-0.0) % Neut % (Auto) 85.3 H (50.0-70.0) % Lymph % (Auto) 4.5 L (18.0-42.0) % Robeson % (Auto) 7.6 (2.0-11.0) % Eos % (Auto) 2.0 (1.0-6.0) % Baso % (Auto) 0.3 (0.0-1.0) % Lymph # (Auto) 0.71 L (1.10-4.50) K/mm3 Robeson # (Auto) 1.20 H (0.10-0.90) K/mm3 Eos # (Auto) 0.32 (0.02-0.50) K/mm3 Baso # (A
--- NOTE | 2019-10-27 08:41 | PC.NURSE ---
reviewed discharge plan, patient home.
[2019-10-27 08:43] VITALS: BP 110/66; PULSE 91; RESP 20; TEMP 36.8; O2SAT 99
--- NOTE | 2019-10-27 08:43 | PC.NURSE ---
[id number] erp calls up and pt can be dc. iv out and site is clean. no redness. taken to er for dc instructions.................................................kvrn
--- NOTE | 2019-10-27 08:48 | PC.NURSE ---
[facility] accessline called, notified of patients discharge & no bed needed
== END 2019-10-27 08:44 | disposition home or self-care (01) ==
PROVIDERS: Emergency Medicine; Family Medicine; Emergency Provider Emergency Medicine; PCP Student in an Organized Health Care Education/Training Program
DX: K85.90 Acute pancreatitis without necrosis or infection, unspecified (principal)
CPT/HCPCS: 36415; 74176; 80053; 81001; 82150; 83690; 85025; 86140; 96361; 96374; 96375; 96376; 99284; 99285; A9270; J1170; J2270; J2405; J2765; J7030

== ENCOUNTER 2020-06-17 10:02 | Outpatient (CLI) | payer OTHER, SELFPAY ==
[2020-06-17 11:39] LABS: Influenza Control Valid (Valid)
[2020-06-17 11:40] LABS: SARS-CoV-2 Ag Negative (Negative)
[2020-06-18 14:15] LABS: SARS-CoV-2 RNA PCR Negative
== END 2020-06-17 10:03 | disposition home or self-care (01) ==
PROVIDERS: PCP Family Medicine; Visit Provider Nurse Practitioner Family
DX: R09.81 Nasal congestion (principal); Z20.822 Contact with and (suspected) exposure to COVID-19
CPT/HCPCS: 87426; 87804; C9803; U0003; U0005

== ENCOUNTER 2020-09-02 13:22 | Outpatient (CLI) | payer OTHER, SELFPAY ==
--- NOTE | ~2020-09-02 | XR_ITS ---
XR lumbar spine 2-3V DATE: 09/02/2020 13:43 INDICATION: Low back pain for 3 weeks radiating to left leg TECHNIQUE: AP, lateral, coned lateral lumbosacral views COMPARISON: None FINDINGS: Surgical clips overlie the right upper quadrant, consistent with cholecystectomy. There is minimal levoscoliosis of the lumbar spine. The lumbar and included lower thoracic pedicles a re intact. No fracture or bone destruction is detected. There is mild degenerative disc disease at L1-2, L2-3 and L3-4 and prominent loss of height at the L5 -S1 interspace. The sacroiliac joints appear normal. IMPRESSION: Multilevel degenerative disc disease; consider MRI lumbar spine for further evaluation as clinically appropriate Reviewed, dictated and finalized at location A.
[2020-09-02 13:34] LABS: Add Urine Microscopic? YES; Appearance Urine Clear (Clear); Bilirubin Urine Negative (Negative); Blood Urine 2+ (Negative); Color Urine Yellow (Yellow); Glucose Urine UA Negative (Negative); Ketones Urine Negative (Negative); Leukocyte Esterase Ur Negative LEU/UL (Negative); Nitrate Urine Negative (Negative); Protein Urine Negative (Negative); Specific Grav Ur <= 1.005 (1.010-1.020); Urobilinogen Urine 0.2 mg/dL (0.2-1.0)
[2020-09-02 13:41] LABS: Bacteria Urine Trace /hpf; Squamous Epithelial Cell Urine Rare /hpf (Few); WBC Urine None seen /hpf (0-3)
== END 2020-09-02 13:23 | disposition home or self-care (01) ==
LOC: CHSLAB 13:24
PROVIDERS: PCP Nurse Practitioner Family; Visit Provider Nurse Practitioner Family
DX: M54.9 Dorsalgia, unspecified (principal); M54.5 Low back pain
CPT/HCPCS: 72100; 81001

== ENCOUNTER 2020-09-06 08:13 | Outpatient (CLI) | payer OTHER, SELFPAY ==
--- NOTE | ~2020-09-06 | MR_ITS ---
EXAMINATION: MR lumbar spine wo con EXAM DATE: 09/06/2020 09:00 INDICATION: M47.816 - Spondylosis without myelopathy or radiculopathy, lumbar region. Right leg and h ip pain. TECHNIQUE: Multi-sequential, multiplanar MR images of the lumbar spine were obtained without contrast . Sagittal T1, T2, T2 fat saturation images. Axial T2 weighted images. Correlation is made to lum r x-ray 09/02/2020. FINDINGS: There is moderate disc disease L5-S1 with some endplate degenerative signal change. The nina tebral body and disc heights are otherwise well maintained. The vertebral bodies are aligned in the A P dimension. The conus medullaris terminates at the L1/2 level and has normal signal intensity and mo rphology. There are no suspicious marrow signal abnormalities. Paraspinal soft tissue is unremarkabl e. Level by level evaluation: L1-L2: Disc does not extend beyond the endplate margin. Facet arthropathy: Mild. Neural foraminal stenosis: No stenosis. Central canal stenosis: No stenosis. L2-L3: Disc does not extend beyond the endplate margin. Facet arthropathy: Mild. Neural foraminal stenosis: No stenosis. Central canal stenosis: No stenosis. L3-L4: Disc does not extend beyond the endplate margin. Facet arthropathy: Mild. Neural foraminal stenosis: No stenosis. Central canal stenosis: No stenosis. L4-L5: There is a mild diffuse disc bulge. Facet arthropathy: Mild. Neural foraminal stenosis: Minimal bilateral. Central canal stenosis: Mild. L5-S1: There is a mild to moderate diffuse disc bulge. Facet arthropathy: Mild. Neural foraminal stenosis: Mild to moderate bilateral. Central canal stenosis: Mild. IMPRESSION: 1. L5-S1 moderate disc disease, mild to moderate neural foraminal stenosis bilaterally. Reviewed, dictated and finalized at location A. IMPRESSION: 1. L5-S1 moderate disc disease, mild to moderate neural foraminal stenosis linsey aterally.
== END 2020-09-06 08:14 | disposition home or self-care (01) ==
LOC: CHSIMG 08:15
PROVIDERS: PCP Nurse Practitioner Family; Visit Provider Nurse Practitioner Family
DX: M47.816 Spondylosis without myelopathy or radiculopathy, lumbar region (principal)
CPT/HCPCS: 72148

== ENCOUNTER 2020-10-09 08:59 | Outpatient (RCR) | payer OTHER, SELFPAY ==
--- NOTE | 2020-10-09 10:04 | PTOPEVAL ---
Thank you for referring Danielle Marquez to [facility].? The patient is scheduled to be seen for therapy? ____x/week for ___ weeks. Please review, sign, date and return this plan of care ANNIE. I agree with and certify that the following plan of care is medically necessary. Referring Physician Date Admitting Provider: Attending Provider: Danielle Buckner NP Referring Provider: *GERRY Outpatient Evaluation Start: 10/09/20 08:57 Freq: Status: Active Protocol: Document 10/09/20 08:57 ACR (Rec: 10/09/20 10:02 ACR [id number]) Therapy Assessment Status Assessment Status Assessment Status Evaluation Outpatient Past Medical History Neurological History Hx Neurological Disorders No Significant History Cardiovascular History Hx Cardiac Disorders No Significant History Respiratory History Hx Respiratory Disorders No Significant History Gastrointestinal History Hx Cholecystectomy Yes Hx Gastroesophageal Reflux Disease Yes Hx Pancreatitis Yes Hx Other Gastrointestinal Disorders Yes: abdominal wall cysts Genitourinary History Hx Genitourinary Disorders No Significant History Musculoskeletal History Hx Musculoskeletal Disorders No Significant History Hematological History Hx Hematological Disorders No Significant History Endocrine History Hx Endocrine Disorders No Significant History HEENT History Hx HEENT Disorders No Significant History Integumentary History Hx Skin Disorders No Significant History Reproductive History Hx Section Yes Hx Tubal Ligation Yes Hx Other Reproductive Disorders Yes: Inflammed duct in left breast-Sugery x2 Psychosocial History Hx Anxiety Yes Pain History History of Any Previous or Ongoing No Significant History Instance of Pain Anesthesia History Hx Anesthesia Reactions No Significant History Other History Hx Recent Acute Infection Yes: abdominal wall cysts, in [facility] for 2 weeks Evaluation Information Problem Diagnosis Degenerative Disc Disease Subjective Information Patient states that she has Query Text:As Reported By Patient/ not worked since August and has Family gotten an epidural injection and a nerve block. 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 The patient states that sitting, standing
--- NOTE | 2020-12-02 07:31 | PCPTNOTE ---
Patient is a 40 year old female that participated in 4 visits for LBP. She called and was having other health issues and wanted to get an epidural for her back pain. The patient is to be discharged at this time so, please refer to most recent treatment note for discharge status. Thank you, DENA GonzalesT
== END 2020-10-20 09:34 | disposition home or self-care (01) ==
LOC: CHSPT 08:59
PROVIDERS: PCP Nurse Practitioner Family; Visit Provider Nurse Practitioner Family
DX: M54.5 Low back pain (principal); M51.36 Other intervertebral disc degeneration, lumbar region; M47.816 Spondylosis without myelopathy or radiculopathy, lumbar region
CPT/HCPCS: 97014; 97110; 97161; G0283

== ENCOUNTER 2020-11-22 12:46 | Observation (INO) | payer OTHER, SELFPAY ==
--- NOTE | ~2020-11-22 | CT_ITS ---
EXAMINATION: CT abdomen pelvis w con DATE: 11/22/2020 14:16 INDICATION: Upper abdominal pain. TECHNIQUE: Computed tomography (CT) of the abdomen and pelvis was performed with 100 mL Omnipaque 350 intravenous contrast. Automated exposure control and iterative reconstruction technique were employe d. The dose-length product was 525.45 mGy-cm. COMPARISON: CT abdomen and pelvis 10/25/2019 FINDINGS: The visualized portions of the lung bases demonstrate mild atelectasis. No pleural effusion . The heart size is normal. No pericardial effusion. There is a 2.3 cm cyst in the liver. There are c hanges of cholecystectomy. The spleen is normal. There is fat stranding and free fluid around the sofia creas, consistent with acute interstitial pancreatitis. The adrenal glands and kidneys are normal. Th ere is a 3.9 cm uterine fibroid. There is diverticulosis of the colon without evidence of diverticuli tis. There are no dilated loops of bowel. The appendix is normal. There are no pathologically enlarge d lymph nodes. There is trace ascites in right paracolic gutter. There is severe lower lumbar spondyl osis. There is mild thoracic spondylosis. IMPRESSION: 1. Acute interstitial pancreatitis. Reviewed, dictated and finalized at location A.
--- NOTE | ~2020-11-22 | CT_ITS ---
EXAMINATION: CT abdomen pelvis w con DATE: 11/23/2020 21:58 INDICATION: Pancreatitis with increasing abdominal pain TECHNIQUE: Computed tomography (CT) of the abdomen and pelvis was performed with 100 mL Omnipaque-350 intravenous contrast. Automated exposure control and iterative reconstruction technique were employe d. The dose-length product was 563.64 mGy-cm. COMPARISON: 11/22/2020 FINDINGS: Minimal dependent atelectasis in the bilateral lower lobes. Heart size is normal. No pericardial or p leural effusion. A couple hepatic cysts, the larger measuring 2.2 cm in maximal diameter. Unchanged m ild intrahepatic biliary ductal dilation as well as dilation of the common bile duct to 9 mm in maxim al diameter which may be related to prior cholecystectomy with surgical clips at the gallbladder zee a. There has been interval decrease in the amount of peripancreatic fat stranding and small amount of nonorganized free fluid at the lesser sac likely related to acute interstitial pancreatitis. Homogen eous pancreatic parenchymal enhancement with no evident necrosis. Chronic mild dilation the main panc reatic duct and chronic 11 mm cystic lesion at the neck of the pancreas likely representing a pseudoc yst related to chronic pancreatitis. Bowels including the appendix are normal. Bladder is normal. 5 c m uterine fibroid. 1.7 cm left adnexal cyst/follicle. Small amount of free fluid in the pelvis. Sever e spondylosis at the lumbosacral junction. IMPRESSION: 1. Improving acute interstitial pancreatitis. 2. Fibroid uterus. Reviewed, dictated and finalized at location B.
[2020-11-22 13:00] VITALS: BP 153/93; PULSE 112; RESP 16; TEMP 36.6; O2SAT 97
[2020-11-22] MEDS: SODIUM CHLORIDE 0.9% IV 1,000 ML 999 ML IV CONT (13:15)
[2020-11-22] MEDS: MORPHINE SULFATE (*CRX) 4 MG/ML INJ IV PUSH (13:18)
[2020-11-22] MEDS: PANTOPRAZOLE SODIUM IV 40 MG VIAL IV PUSH (13:19)
[2020-11-22 13:28] LABS: Basophils Absolute Auto 0.02 K/mm3 (0.00-0.10); Basophils Percent Auto 0.2 % (0.0-1.0); Eosinophils Absolute Auto 0.08 K/mm3 (0.02-0.50); Eosinophils Percent Auto 0.8 % (1.0-6.0); Hematocrit 41.6 % (35.0-49.0); Hemoglobin 13.4 g/dL (12.0-15.0); Immature Granulocyte Absolute 0.06 K/mm3 (0.00-0.00); Immature Granulocyte Percent A 0.6 % (0.0-0.0); Lymphocytes Absolute Auto 1.18 K/mm3 (1.10-4.50); Lymphocytes Percent Auto 11.1 % (18.0-42.0); Mean Corpuscular HGB Conc 32.2 g/dL (32.0-36.0); Mean Corpuscular Hemoglobin 28.3 pg (27.0-31.0); Mean Corpuscular Volume 87.9 fL (78.0-102.0); Mean Platelet Volume 9.4 fl (9.2-11.8); Monocytes Absolute Auto 1.22 K/mm3 (0.10-0.90); Monocytes Percent Auto 11.5 % (2.0-11.0); Neutrophils Percent Auto 75.8 % (50.0-70.0); Platelet Count Result 273 K/mm3 (150-420); Red Blood Count 4.73 M/mm3 (4.20-5.40); Red Cell Distribution Width 13.6 % (11.6-14.4); White Blood Count 10.6 K/mm3 (4.8-10.8)
[2020-11-22 13:29] LABS: Add Urine Microscopic? YES; Appearance Urine Clear (Clear); Bilirubin Urine Negative (Negative); Blood Urine 2+ (Negative); Color Urine Light Yellow (Yellow); Glucose Urine UA Negative (Negative); Ketones Urine Negative (Negative); Leukocyte Esterase Ur Negative (Negative); Nitrate Urine Negative (Negative); Protein Urine Negative (Negative); Specific Grav Ur 1.015 (1.010-1.020); Urobilinogen Urine 0.2 mg/dL (0.2-1.0)
[2020-11-22 13:33] LABS: Squamous Epithelial Cell Urine Moderate /hpf (Few); WBC Urine None seen /hpf (0-3)
[2020-11-22 13:34] LABS: Bacteria Urine 1+ /hpf
[2020-11-22 13:35] LABS: Pregnancy On Board Control Positive; Urine Pregnancy Test Negative
[2020-11-22 13:47] LABS: Lactic Acid Reflex 0.6 mmol/L (0.4-2.0)
[2020-11-22] MEDS: ONDANSETRON INJ 4 MG/2 ML VIAL IV PUSH ×2 (13:47→19:11)
[2020-11-22] MEDS: HYDROmorphone HCL INJ (*CRX) 2 MG/ML VIAL 1 MG IV PUSH ×2 (13:47→14:57)
[2020-11-22 13:51] LABS: Alanine Aminotransferase 22 U/L (14-59); Albumin Level 3.6 g/dL (3.4-5.0); Alkaline Phosphatase 50 U/L (46-116); Anion Gap 8 mmol/L (8-16); Aspartate Amino Transferase 10 U/L (15-37); Bilirubin,Total 0.4 mg/dL (0.00-1.00); Blood Urea Nitrogen 14 mg/dL (7-18); Calcium 8.7 mg/dL (8.5-10.1); Carbon Dioxide 29 mmol/L (21-32); Chloride 105 mmol/L (98-108); Estimated CRCL calculation 76 ml/min; Estimated Glomerular Filt Rate > 60; Glucose 75 mg/dL (70-99); Osmolality Calculated 293 mOsm/kg (285-295); Potassium 3.9 mmol/L (3.5-5.1); Sodium 142 mmol/L (136-145); Total Protein 6.7 g/dL (6.4-8.2); Troponin I < 4.0 ng/L (0.00-60.4)
[2020-11-22 14:07] LABS: Lipase 13186 U/L (73-393)
--- NOTE | 2020-11-22 14:51 | ED.ABDPAIN ---
HPI - Abdominal Pain General Chief Complaint: Abdominal Pain Stated Complaint: abdomen pain Source: patient History of Present Illness HPI narrative: this is 40-year-old female who presents with abdominal pain localizing to the left upper quadrant has a history of pancreatitis secondary to gallstones, has had a cholecystectomy, currently presents with a 2 day history of left upper quadrant abdominal pain radiating to the epigastric area with some nausea with episodes of vomiting with no dysuria no hematuria no fever or chills. MD elicited complaint: abdominal pain Onset (ago): day(s) Pain Consistency: constant Location: epigastric and LUQ Severity: severe Pain scale (0-10): 8 Quality: aching Radiation: epigastric Exacerbating factors: eating and vomiting Relieving factors: vomiting Associated symptoms: nausea and vomiting Related Data Allergies Allergy/AdvReac Type Severity Reaction Status Date / Time No Known Allergies Allergy Unknown Verified 09/03/20 13:34 Review of Systems Review of Systems: All systems reviewed & are unremarkable except as noted in HPI and below PMFSH Past Medical History Medical History Acute acalculous cholecystitis AVRIL (generalized anxiety disorder) GERD (gastroesophageal reflux disease) Marijuana smoker Pseudocyst of pancreas Surgical History Surgical History H/O tubal ligation History of breast lump/mass excision History of cholecystectomy Family History Family History Father Hypertension Mother Cholecystectomy planned Sibling , Brother - MVA Motor vehicle accident victim Other Breast cancer Social History Social History Smoking status: Never smoker Alcohol intake: never Substance use: current Substance use type: marijuana Last use: daily Gender identity (if verbalized by the patient): Female Spiritual care concerns: No Agree to blood products: Yes Exam Const: General: no acute distress Orientation/consciousness: patient oriented x3 HENMT: Head: normal to inspection Eyes: Conjunctivae: conjunctivae normal Pupils: Equal, round and reactive pupils present EOM: EOMs intact bilaterally Neck: Neck: normal visual inspection and no lymphadenopathy Chest: Chest palpation & inspection: normal inspection of the chest Resp: Effort & Inspection: normal respiratory effort Auscultation: clear to auscultation bilaterally Cardio: Rate: regular rate Rhythm: regular rhythm GI: GI Palp: Yes Soft to palpation and Yes Tenderness to palpation present (GI) Percussion: Yes normal to percussion : General: Yes no CVA tenderness Urinary Catheter: Urinary Catheter: patent and draining Back/Spine/Pelvis: Back: no CVA tenderness Skin: General skin exam: normal color Rashes: no rashes Neuro: General: patient oriented x3 and moves all extremities Psych: Mental Status: mental status grossly normal Affect: normal affect Course Course Emergency Course: female with abdominal pain after reassessment pain has been better and has improved but has been requesting more pain medicine. Reviewed CT scan and labs and will admit the patient with some lipase level of over 13,000. Vital Signs Vital signs: Vital Signs Temperature 36.6 C 11/22/20 13:00 Pulse Rate 112 H 11/22/20 13:00 Respiratory Rate 16 11/22/20 13:00 Blood Pressure 153/93 H 11/22/20 13:00 Pulse Oximetry 97 11/22/20 13:00 Temperature 36.6 C 11/22/20 13:00 Pulse Rate 112 H 11/22/20 13:00 Respiratory Rate 16 11/22/20 13:00 Blood Pressure 153/93 H 11/22/20 13:00 Pulse Oximetry 97 11/22/20 13:00 MDM - Abdominal Pain Lab Data Result diagrams: 11/22/20 13:24 11/22/20 13:24 Labs: Lab Results 11/22/20 11/22/20
[2020-11-22 15:03] VITALS: BP 144/89; PULSE 83; RESP 16; O2SAT 97
[2020-11-22 15:16] VITALS: BP 119/65; PULSE 95; RESP 18; O2SAT 95
[2020-11-22 15:32] VITALS: BMI 27.7
[2020-11-22] MEDS: SODIUM CHLORIDE 0.9% IV 1,000 ML 100 ML IV CONT (15:51)
[2020-11-22] MEDS: LORazepam INJ (*CRX) 2 MG/ML VIAL 0.5 MG IV PUSH (15:51)
[2020-11-22 16:00] VITALS: BP 125/83; PULSE 88; RESP 16; TEMP 36.7; O2SAT 99
--- NOTE | 2020-11-22 17:12 | PC.NURSE ---
pt resting in bed, waiting on pharmacy to verify dilaudid order, fluids running, call light in reach
--- NOTE | 2020-11-22 18:32 | PC.NURSE ---
pt appears to be sleeping, no s/sx of distress, iv running, chest movement evident
[2020-11-22] MEDS: HYDROmorphone HCL INJ (*CRX) 2 MG/ML VIAL 0.5 MG IV PUSH ×2 (19:13→21:13)
[2020-11-22 19:32] VITALS: BP 123/80; PULSE 81; RESP 16; TEMP 36.2; O2SAT 99
[2020-11-22] MEDS: ENOXAPARIN 30 MG/0.3 ML SYRINGE SUB-Q (20:47)
--- NOTE | 2020-11-22 20:48 | PC.NURSE ---
pt requests more pain medication, states she is just uncomfortable, iv running, no other complaints, call light in reach
--- NOTE | 2020-11-22 22:43 | PC.NURSE ---
pt resting in bed, iv running, no complaints at this time, call light in reach
[2020-11-23] VITALS: BP 121/77; PULSE 82; RESP 16; TEMP 36.2; O2SAT 98
[2020-11-23] MEDS: HYDROmorphone HCL INJ (*CRX) 2 MG/ML VIAL 0.5 MG IV PUSH ×2 (00:52→05:43)
[2020-11-23] MEDS: ONDANSETRON INJ 4 MG/2 ML VIAL IV PUSH ×4 (00:58→21:08)
[2020-11-23] MEDS: SODIUM CHLORIDE 0.9% IV 1,000 ML 100 ML IV CONT ×2 (02:10→06:16)
[2020-11-23 04:00] VITALS: BP 127/74; PULSE 85; RESP 18; TEMP 36.7; O2SAT 97
[2020-11-23 05:22] LABS: Basophils Absolute Auto 0.02 K/mm3 (0.00-0.10); Basophils Percent Auto 0.2 % (0.0-1.0); Eosinophils Absolute Auto 0.08 K/mm3 (0.02-0.50); Eosinophils Percent Auto 0.9 % (1.0-6.0); Immature Granulocyte Absolute 0.03 K/mm3 (0.00-0.00); Immature Granulocyte Percent A 0.3 % (0.0-0.0); Lymphocytes Absolute Auto 0.98 K/mm3 (1.10-4.50); Lymphocytes Percent Auto 11.1 % (18.0-42.0); Mean Corpuscular HGB Conc 31.7 g/dL (32.0-36.0); Mean Corpuscular Hemoglobin 28.4 pg (27.0-31.0); Mean Corpuscular Volume 89.7 fL (78.0-102.0); Mean Platelet Volume 9.3 fl (9.2-11.8); Monocytes Absolute Auto 1.02 K/mm3 (0.10-0.90); Monocytes Percent Auto 11.6 % (2.0-11.0); Neutrophils Absolute Auto 6.7 K/mm3 (1.7-7.2); Neutrophils Percent Auto 75.9 % (50.0-70.0); Platelet Count Result 261 K/mm3 (150-420); Red Blood Count 4.57 M/mm3 (4.20-5.40); Red Cell Distribution Width 13.6 % (11.6-14.4); White Blood Count 8.8 K/mm3 (4.8-10.8)
[2020-11-23 05:37] LABS: Alanine Aminotransferase 27 U/L (14-59); Albumin Level 3.2 g/dL (3.4-5.0); Alkaline Phosphatase 54 U/L (46-116); Anion Gap 10 mmol/L (8-16); Aspartate Amino Transferase 14 U/L (15-37); Bilirubin,Total 0.5 mg/dL (0.00-1.00); Blood Urea Nitrogen 10 mg/dL (7-18); Calcium 8.3 mg/dL (8.5-10.1); Carbon Dioxide 26 mmol/L (21-32); Chloride 104 mmol/L (98-108); Estimated CRCL calculation 87 ml/min; Estimated Glomerular Filt Rate > 60; Glucose 55 mg/dL (70-99); Magnesium 1.6 mg/dL (1.8-2.4); Osmolality Calculated 287 mOsm/kg (285-295); Potassium 4.1 mmol/L (3.5-5.1); Sodium 140 mmol/L (136-145); Total Protein 6.6 g/dL (6.4-8.2)
[2020-11-23 05:38] LABS: Lipase 5736 U/L (73-393)
[2020-11-23] MEDS: LORazepam INJ (*CRX) 2 MG/ML VIAL 0.5 MG IV PUSH ×3 (05:56→21:22)
--- NOTE | 2020-11-23 06:04 | PC.NURSE ---
Patient glucose level 55. Doctor contacted and order received to change fluids to D5W at 120 mls/hour. Fluids amended as ordered
[2020-11-23] MEDS: DEXTROSE 5% 1,000 ML 1,000 ML 120 ML IV CONT ×3 (06:18→23:42)
[2020-11-23 07:36] LABS: Glucose Point of Care 70 mg/dl (65-105)
[2020-11-23 08:00] VITALS: BP 132/78; PULSE 103; RESP 16; TEMP 36.4; O2SAT 99
[2020-11-23] MEDS: MORPHINE SULFATE (*CRX) 2 MG/ML INJ 1 MG IV PUSH ×4 (09:09→23:52)
[2020-11-23] MEDS: PANTOPRAZOLE SODIUM IV 40 MG VIAL IV PUSH (09:11)
[2020-11-23] MEDS: ENOXAPARIN 30 MG/0.3 ML SYRINGE SUB-Q (09:13)
[2020-11-23] MEDS: MAGNESIUM SULF 2 GM/WATER 50ML 2 GM/50 ML BAG IVPB (09:14)
[2020-11-23 12:00] VITALS: BP 136/74; PULSE 102; RESP 22; TEMP 36.4; O2SAT 97
--- NOTE | 2020-11-23 14:14 | PM.IMHP ---
H&P: HPI History of Present Illness Date/Time: 11/23/20 14:14 Danielle Marquez is a 40 year old female who comes to the hospital for epigastric abdominal pain and admitted under Observation for Pancreatitis. She has had a cholecystectomy in the past d/t sludge build up which is what caused her initial bout of Pancreatitis in the past. She states that she does not drink EtOH. Initially she was given Dilaudid for her pain however Pt explains it did not do much for her pain but did make her head a bit foggy. Medication was changed to PO [place] 7.5/325mg and 1 mg Morphine for breakthrough pain. At this time she has only had Morphine 2 times today and this seems to be working. Pt states her abdominal pain is a little better today. She tried a popsicle but this caused pain and nausea. PUJA Nieto states the Pt did tolerate a little water however. Pt denies any CP, SOB, Fever, Chills, changes in bowel or bladder function (other than Pancreatic pain being nauseated). Pt does have back pain in the lumbar area. She has a history of THC use, GERD, AVRIL, Pseudocyst of pancreas and degenerative arthritis of the lumbar spine. <ADALBERTO Jensen - Last Filed: 11/23/20 14:33> Chief Complaint: Abdominal Pain <ADALBERTO Jensen - Last Filed: 11/23/20 14:33> Review of Systems Review of Systems: All systems reviewed & are unremarkable except as noted in HPI and below <ADALBERTO Jensen - Last Filed: 11/23/20 14:33> [facility] Past Medical History Medical History: Medical History Acute acalculous cholecystitis AVRIL (generalized anxiety disorder) GERD (gastroesophageal reflux disease) Marijuana smoker Pseudocyst of pancreas <ADALBERTO Jensen - Last Filed: 11/23/20 14:33> Surgical History Surgical History: Surgical History H/O tubal ligation History of breast lump/mass excision History of cholecystectomy <ADALBERTO Jensen - Last Filed: 11/23/20 14:33> Family History Family History: Family History Father Hypertension Mother Cholecystectomy planned Sibling , Brother - MVA Motor vehicle accident victim Other Breast cancer <ADALBERTO Jensen - Last Filed: 11/23/20 14:33> Social History Social History: Social History Smoking status: Never smoker Second hand tobacco smoke exposure: Yes Alcohol intake: never Substance use: current Substance use type: marijuana and painkillers Last use: Marijuana at midnight 11/21 Gender identity (if verbalized by the patient): Female Spiritual care concerns: No Agree to blood products: Yes <ADALBERTO Jensen - Last Filed: 11/23/20 14:33> Meds Home Medications and Allergies Home medications: Home Medications Medication Instructions Recorded Confirmed Type cholecalciferol (vitamin D3) 25 25 mcg PO DAILY #30 cap 06/24/20 11/22/20 Rx mcg (1,000 unit) capsule fluticasone propionate 50 1 spray INTRANASAL DAILY #9.9 ml 06/24/20 11/22/20 Rx mcg/actuation nasal spray,suspension ibuprofen 800 mg tablet 800 mg PO TID PRN #90 tablet 09/03/20 11/22/20 Rx alprazolam 0.5 mg tablet 0.5 mg PO BID PRN #20 tablet 09/10/20 11/22/20 Rx cyclobenzaprine 10 mg tablet 10 mg PO Q8H PRN #30 tablet 10/07/20 11/22/20 Rx tramadol 50 mg tablet 50 mg PO Q6H PRN #30 tablet 10/07/20 11/22/20 Rx sertraline 50 mg tablet See Rx Instructions .ROUTE 10/29/20 11/22/20 Rx .COMPLEX #30 tablet hydrocodone 5 mg-acetaminophen 325 1 tablet PO Q8H PRN #14 tablet 11/07/20 11/22/20 Rx mg tablet trazodone 50 mg tablet 50 mg PO DAILY #30 tablet 11/07/20 11/22/20 Rx <ADALBERTO Jensen - Last Filed: 11/23/20 14:33> Allergies/Adverse reactions: Allergies Allergy/AdvReac Type Severity Reaction Status Date / Ti
[2020-11-23] MEDS: HYDROcodone/acetaminophen (*CRX) 7.5-325 MG TABLET 1 TAB PO (14:57)
[2020-11-23 15:31] VITALS: BP 130/83; PULSE 80; RESP 18; TEMP 37.1; O2SAT 99
--- NOTE | 2020-11-23 18:10 | PC.NURSE ---
pt refused dinner, asks if it is too late to order from kitchen, given jello at this time, pt reports pain is manageable at this time, call light in reach
--- NOTE | 2020-11-23 20:20 | PC.NURSE ---
pt calls to request more pain medication, none available to be given at this time, pt is visibly upset and requests to speak with the dr, dr gayle called and agrees to come up and speak with pt
--- NOTE | 2020-11-23 20:30 | PC.NURSE ---
dr gayle has been in to see pt, pt is adamant that she needs dilaudid and that nothing else will help, pt refuses toradol, suggests possibility of transfer if pancreatitis is worsening on ct scan, pt refuses ct scan and states why can't you just give me the dilaudid and let me stay here , returns to the er to put in further orders
[2020-11-23] MEDS: MORPHINE SULFATE (*CRX) 2 MG/ML INJ IV PUSH (21:09)
[2020-11-23 21:11] LABS: Basophils Absolute Auto 0.02 K/mm3 (0.00-0.10); Basophils Percent Auto 0.2 % (0.0-1.0); Eosinophils Absolute Auto 0.08 K/mm3 (0.02-0.50); Eosinophils Percent Auto 0.7 % (1.0-6.0); Hematocrit 40.8 % (35.0-49.0); Hemoglobin 13.4 g/dL (12.0-15.0); Immature Granulocyte Absolute 0.05 K/mm3 (0.00-0.00); Immature Granulocyte Percent A 0.4 % (0.0-0.0); Lymphocytes Absolute Auto 0.94 K/mm3 (1.10-4.50); Lymphocytes Percent Auto 8.4 % (18.0-42.0); Mean Corpuscular HGB Conc 32.8 g/dL (32.0-36.0); Mean Corpuscular Hemoglobin 28.5 pg (27.0-31.0); Mean Corpuscular Volume 86.8 fL (78.0-102.0); Mean Platelet Volume 9.2 fl (9.2-11.8); Monocytes Absolute Auto 1.32 K/mm3 (0.10-0.90); Monocytes Percent Auto 11.8 % (2.0-11.0); Neutrophils Absolute Auto 8.8 K/mm3 (1.7-7.2); Neutrophils Percent Auto 78.5 % (50.0-70.0); Platelet Count Result 288 K/mm3 (150-420); Red Cell Distribution Width 13.2 % (11.6-14.4); White Blood Count 11.2 K/mm3 (4.8-10.8)
[2020-11-23] MEDS: KETOROLAC (*BKC) 60 MG/2 ML VIAL IM (21:11)
[2020-11-23 21:27] LABS: Alanine Aminotransferase 106 U/L (14-59); Albumin Level 3.4 g/dL (3.4-5.0); Alkaline Phosphatase 117 U/L (46-116); Anion Gap 12 mmol/L (8-16); Aspartate Amino Transferase 126 U/L (15-37); Bilirubin,Total 1.1 mg/dL (0.00-1.00); Blood Urea Nitrogen 8 mg/dL (7-18); Calcium 8.9 mg/dL (8.5-10.1); Carbon Dioxide 25 mmol/L (21-32); Chloride 101 mmol/L (98-108); Estimated CRCL calculation 85 ml/min; Estimated Glomerular Filt Rate > 60; Glucose 96 mg/dL (70-99); Osmolality Calculated 284 mOsm/kg (285-295); Potassium 3.8 mmol/L (3.5-5.1); Sodium 138 mmol/L (136-145); Total Protein 7.2 g/dL (6.4-8.2)
[2020-11-23 21:28] LABS: Lipase 8641 U/L (73-393)
--- NOTE | 2020-11-23 21:29 | PC.NURSE ---
Public Health Specialist spoke with patient about 1x orders per MD ordered after speaking with patient. Patient screaming and throwing herself in the bed. Patient refusing any further scans at this time. Public Health Specialist explained the medication that was ordered. Patient kept stating dialudid is what I want . Patient agreed to 2mg of IV morphine, 4mg of zofran IV, and 60mg of Toradol IM. Given IV push medications and IM to L gluteal. Patient more quiet at this time. Patient has agreed to CT ABD scan. Radiology was called, awaiting transport to CT.
--- NOTE | 2020-11-23 21:30 | PC.NURSE ---
CT came to floor and automatic typewriter inspector assisted with transport of patient as patient refused to go in w/c, bed only. acquisition associate was notified.
--- NOTE | 2020-11-23 21:33 | PC.NURSE ---
PRN Ativan was given for assist with anxiety. Patient agreed to medication.
--- NOTE | 2020-11-23 21:56 | PC.NURSE ---
Patient returned to floor from CT. Awaiting results.
[2020-11-24] VITALS: BP 106/64; PULSE 82; RESP 18; TEMP 36.1; O2SAT 97
--- NOTE | 2020-11-24 01:30 | PC.NURSE ---
Patient resting at this time. Patient did state that she was feeling slightly better with pain. PRN morphine was given. Vitals taken. Patient continues with NPO status. Ambulating independently. Continue to monitor.
[2020-11-24] MEDS: LORazepam INJ (*CRX) 2 MG/ML VIAL 0.5 MG IV PUSH (03:13)
[2020-11-24 04:00] VITALS: BP 112/81; PULSE 76; RESP 18; TEMP 36.5; O2SAT 97
[2020-11-24] MEDS: MORPHINE SULFATE (*CRX) 2 MG/ML INJ 1 MG IV PUSH ×2 (04:15→08:16)
--- NOTE | 2020-11-24 04:20 | PC.NURSE ---
Patient calm at this time, sleeping. Continues with PRN pain medication and PRN anti-anxiety medication. Patient stated wants to go home today.
[2020-11-24 05:37] LABS: Hematocrit 40.3 % (35.0-49.0); Mean Corpuscular HGB Conc 32.3 g/dL (32.0-36.0); Mean Corpuscular Hemoglobin 28.3 pg (27.0-31.0); Mean Corpuscular Volume 87.8 fL (78.0-102.0); Mean Platelet Volume 9.5 fl (9.2-11.8); Platelet Count Result 273 K/mm3 (150-420); Red Blood Count 4.59 M/mm3 (4.20-5.40); Red Cell Distribution Width 13.3 % (11.6-14.4); White Blood Count 8.6 K/mm3 (4.8-10.8)
[2020-11-24 05:50] LABS: Anion Gap 8 mmol/L (8-16); Blood Urea Nitrogen 9 mg/dL (7-18); Calcium 8.5 mg/dL (8.5-10.1); Carbon Dioxide 29 mmol/L (21-32); Chloride 102 mmol/L (98-108); Estimated CRCL calculation 78 ml/min; Estimated Glomerular Filt Rate > 60; Glucose 88 mg/dL (70-99); Magnesium 1.8 mg/dL (1.8-2.4); Osmolality Calculated 285 mOsm/kg (285-295); Potassium 3.7 mmol/L (3.5-5.1); Sodium 139 mmol/L (136-145)
[2020-11-24 06:05] LABS: Lipase 6546 U/L (73-393)
--- NOTE | 2020-11-24 07:08 | PM.IMPN ---
Subjective Date/time seen: 11/23/2020 @ 1930 S: severe abdominal pain x this pm. O: Pt was writhing in pain and demanding IV dilaudid HEENT: wnl CVS: rrr RESP: chest was clear. ABD: mild epigastric tenderness. no acute rebound or guarding. MS: wnl. TESTBOARD OPERATOR: non-focal A: Pancreatitis Plan: Increase analgesia. 2. Repeat CT and labs. If worsening, will seek transfer to higher level of care. 11/24/2020 @ 0235: Pt was seen sleeping comfortably in bed. CT showed mild improvement. Plan: Continue care here. Objective Data Vital Signs Vital Signs: Vital Signs - 24 hr 11/23/20 08:00 11/23/20 12:00 11/23/20 15:31 Temperature 36.4 C L 36.4 C 37.1 C Pulse Rate 103 H 102 H 80 Respiratory Rate 16 22 H 18 Blood Pressure 132/78 136/74 130/83 Pulse Oximetry 99 97 99 11/24/20 00:00 11/24/20 04:00 Temperature 36.1 C L 36.5 C Pulse Rate 82 76 Respiratory Rate 18 18 Blood Pressure 106/64 112/81 Pulse Oximetry 97 97 Intake/Output Intake/Output: Intake & Output 11/21/20 11/22/20 11/23/20 11/24/20 23:59 23:59 23:59 23:59 Intake Total 1000 4520 Output Total 600 1600 900 Balance 400 2920 -900 Meds/Results Medications: Active Medications Generic Name Dose Route Start Last Admin Trade Name Freq PRN Reason Stop Dose Admin Hydrocodone Bitart/Acetaminophen 1 tab 11/23/20 08:31 11/23/20 14:57 Hydrocodone/Acetaminophen (*Crx) 7.5-325 Mg Tablet PO 1 tab Q6H PRN Administration Pain Rated 5-10 Docusate Sodium 100 mg 11/23/20 09:00 11/23/20 09:17 Docusate Sodium 100 Mg Capsule PO Not Given DAILY [facility] Enoxaparin Sodium 30 mg 11/22/20 21:00 11/23/20 23:20 Enoxaparin 30 Mg/0.3 Ml Syringe SUB-Q Not Given Q12HR CHENCHO Dextrose 1,000 mls @ 120 mls/hr 11/23/20 06:05 11/23/20 23:42 Dextrose 5% 1,000 Ml IV CONT 120 mls/hr .Q8H20M CHENCHO Administration Lorazepam 0.5 mg 11/22/20 15:02 11/24/20 03:13 Lorazepam Inj (*Crx) 2 Mg/Ml Vial IV PUSH 0.5 mg Q6H PRN Administration Anxiety Morphine Sulfate 1 mg 11/23/20 08:27 11/24/20 04:15 Morphine Sulfate (*Crx) 2 Mg/Ml Inj IV PUSH 1 mg Q4H PRN Administration breakthrough pain Naloxone HCl 0.1 mg 11/22/20 14:56 Naloxone Hcl 0.4 Mg/Ml Vial IV PUSH Q2M PRN Opiate Reversal Ondansetron HCl 4 mg 11/22/20 14:56 11/23/20 13:00 Ondansetron Inj 4 Mg/2 Ml Vial IV PUSH 4 mg Q6H PRN Administration Nausea And Vomiting Pantoprazole Sodium 40 mg 11/23/20 09:00 11/23/20 09:11 Pantoprazole Sodium Iv 40 Mg Vial IV PUSH 40 mg Q24H CHENCHO Administration Labs Labs: Laboratory Results - last 24 hr 11/23/20 11/23/20 11/23/20 07:34 21:04 21:04 WBC 11.2 H RBC 4.70 Hgb 13.4 Hct 40.8 MCV 86.8 MCH 28.5 MCHC 32.8 RDW 13.2 Plt Count 288 MPV 9.2 Immature Gran % (Auto) 0.4 H Neut % (Auto) 78.5 H Lymph % (Auto) 8.4 L [place] % (Auto) 11.8 H Eos % (Auto) 0.7 L Baso % (Auto) 0.2 Lymph # (Auto) 0.94 L [place] # (Auto) 1.32 H Eos # (Auto) 0.08 Baso # (Auto) 0.02 Abs Immat Gran (auto) 0.05 H Absolute Neuts (auto) 8.8 H Absolute Nucleated RBC 0.00 Nucleated RBC % 0.0 Sodium 138 Potassium 3.8 Chloride 101 Carbon Dioxide 25 Anion Gap 12 BUN 8 Creatinine 0.74 Estim Creat Clear Calc 85 Estimated GFR > 60 Glucose 96 POC Capillary Glucose 70 Calculated Osmolality 284 L Calcium 8.9 Magnesium Total Bilirubin 1.1 H AST 126 H ALT 106 H Alkaline Phosphatase 117 H Total Protein 7.2 Albumin 3.4 Lipase 8641 H 11/24/20 11/24/20 05:04 05:04 WBC 8.6 RBC 4.59 Hgb 13.0 Hct 40.3 MCV 87
[2020-11-24 08:00] VITALS: BP 133/80; PULSE 98; RESP 20; TEMP 36.5; O2SAT 99
[2020-11-24] MEDS: DEXTROSE 5% 1,000 ML 1,000 ML 120 ML IV CONT (08:15)
[2020-11-24] MEDS: ENOXAPARIN 30 MG/0.3 ML SYRINGE SUB-Q (08:15)
[2020-11-24] MEDS: PANTOPRAZOLE SODIUM IV 40 MG VIAL IV PUSH (08:15)
[2020-11-24] MEDS: HYDROcodone/acetaminophen (*CRX) 7.5-325 MG TABLET 1 TAB PO (10:19)
[2020-11-24 12:00] VITALS: BP 130/85; PULSE 82; RESP 18; TEMP 36.6; O2SAT 99
--- NOTE | 2020-11-24 12:09 | PM.DS ---
DS: Admitting Diagnosis Admitting Diagnosis Pancreatitis DS: Discharge Diagnosis Discharge Diagnosis (1) Acute pancreatitis: Code(s): K85.90 - Acute pancreatitis without necrosis or infection, unspecified Status: Chronic Assessment and Plan: Pt was NPO until today, currently Full Liquid Diet though not tolerating very well at this time, Continue D5W, Pain management with [facility] for baseline control and Morphine for breakthrough pain, Zofran 11/24/2020 Pt was able to tolerate a popsicle for lunch along with some mashed potatoes and fluids without abdominal pain or nausea. Pt states she is ready to go home, will send her home with a small script of pain medication for a couple days, Pt to f/u with PCP and or GI, I did give her an office number for a GI provider that can place a stent since she states this was an option presented to her in the past. (2) Degenerative arthritis of lumbar spine: Code(s): M47.816 - Spondylosis without myelopathy or radiculopathy, lumbar region Status: Acute Assessment and Plan: Pain medications used for her Pancreatitis will help with her lumbar spin, Pt states her back pain is not that bad 11/24/2020 No c/o back pain today (3) Marijuana smoker: Code(s): F12.90 - Cannabis use, unspecified, uncomplicated Status: Acute Assessment and Plan: Likely not contributor to her abdominal pain (4) GERD (gastroesophageal reflux disease): Code(s): K21.9 - Gastro-esophageal reflux disease without esophagitis Status: Chronic Assessment and Plan: Protonix (5) AVRIL (generalized anxiety disorder): Code(s): F41.1 - Generalized anxiety disorder Status: Chronic Assessment and Plan: Ativan PRN DS: Summary Hospital Course Hospital Course: Pt did well. She is tolerating PO fluids and a full liquid diet without abdominal pain or nausea. Time Spent with Patient Time attestation: Total time spent providing and/or coordinating discharge services: < 30 Minutes Exam Const: General: cooperative, healthy appearing, comfortable, no acute distress, well developed, alert, awake and Physically active Nutritional Appearance: average body habitus Resp: Effort & Inspection: normal respiratory effort Auscultation: clear to auscultation bilaterally Cardio: Rate: regular rate Heart sounds: S1 normal heart sound present and S2 normal heart sound present GI: GI Palp: Yes Soft to palpation and Yes Tenderness to palpation present (GI) (minimal tenderness to palpation) Auscultation: normal bowel sounds Skin: General skin exam: normal color and dry skin Neuro: General: oriented to person, oriented to place and oriented to time Cranial nerves: Yes CN's II-XII intact bilaterally (grossly intact) Cognition (Neuro): normal cognition Speech: normal speech Gait exam (Neuro): Normal gait present Extrem: General: full ROM and no pedal edema Psych: Appearance: grossly normal Mental Status: mental status grossly normal Speech and movement: Normal speech and movement present Affect: normal affect Attitude: cooperative Thought process: Normal thought process present DS: Data Data Completed and Pending Labs on day of discharge: Labs from last 24 hours 11/24/20 11/24/20 11/23/20 05:04 05:04 21:04 WBC 8.6 RBC 4.59 Hgb 13.0 Hct 40.3 MCV 87.8 MCH 28.3 MCHC 32.3 RDW 13.3 Plt Count 273 MPV 9.5 Immature Gran % (Auto) Neut % (Auto) Lymph % (Auto) [place] % (Auto) Eos % (Auto) Baso % (Auto) Lymph # (Auto) [place] # (Auto) Eos # (Auto) Baso # (Auto) Abs Immat Gran (auto) Absolute Neuts (auto) Absolute Nucleated RBC Nucleated RBC % Sodium 139 138 Potassium 3.7 3.8 Chloride 102 101 Carbon Dioxide 29 25 Anion Gap 8 12 BUN 9 8 Creatinine 0.81 0.74 Estim Creat Clear Calc 78 85 Estimated GFR > 60 > 60 Glucose 88 96 Calculated Osmolality 285 284
--- NOTE | 2020-11-24 14:20 | PC.NURSE ---
Discharge instructions reviewed with patient, patient verbalizes understanding. Patient taken off floor per wheelchair to private vehicle.
== END 2020-11-24 14:20 | disposition home or self-care (01) ==
LOC: CHSED 14:56 → CHS2ND 15:39
PROVIDERS: Emergency Medicine; Nurse Practitioner Family; Admitting Provider Emergency Medicine; Emergency Provider Emergency Medicine; PCP Nurse Practitioner Family; Visit Provider Emergency Medicine
DX: K85.80 Other acute pancreatitis without necrosis or infection (principal); K21.9 Gastro-esophageal reflux disease without esophagitis; M47.816 Spondylosis without myelopathy or radiculopathy, lumbar region; F41.1 Generalized anxiety disorder; F12.90 Cannabis use, unspecified, uncomplicated; Z90.49 Acquired absence of other specified parts of digestive tract
CPT/HCPCS: 36415; 74177; 80048; 80053; 81001; 81025; 82948; 83605; 83690; 83735; 84484; 85025; 85027; 96361; 96365; 96366; 96367; 96368; 96372; 96374; 96375; 96376; 99285; A9270; C9113; G0378; G0379; J1170; J1650; J1885; J2060; J2270; J2405; J3475; J7030; J7070; Q9967

== ENCOUNTER 2020-11-25 17:46 | Outpatient (CLI) | payer OTHER, SELFPAY ==
[2020-11-25] MEDS: SODIUM CHLORIDE 0.9% IV 1,000 ML 999 ML IV CONT (18:10)
--- NOTE | 2020-11-25 18:22 | PC.NURSE ---
Patient presented on floor for outpatient IV fluids. Patient sent over from MD office. #22 IV started in left wrist. NS infusing at 999 ml/hr per MD order. Friend in room with patient.
--- NOTE | 2020-11-25 19:23 | PC.NURSE ---
Patient's IV fluids completed. Nurse removed IV to left wrist without difficulty. Pressure applied, no active bleeding observed. Pressure dressing applied and nurse instructed on monitoring the site and apply pressure should area start bleeding.Patient stated understanding. Nurse also instructed to call outpatient clinic tomorrow to set up time to come in for second infusion. Patient stated understanding. Patient tolerated IV well.
== END 2020-11-25 17:47 | disposition home or self-care (01) ==
PROVIDERS: PCP Nurse Practitioner Family; Visit Provider Nurse Practitioner Family
DX: K85.90 Acute pancreatitis without necrosis or infection, unspecified (principal)
CPT/HCPCS: 96360; J7030

== ENCOUNTER 2020-11-26 08:52 | Observation (INO) | payer OTHER, SELFPAY ==
[2020-11-26 08:52] VITALS: BP 132/89; PULSE 98; RESP 16; TEMP 36.6; O2SAT 100
--- NOTE | 2020-11-26 09:21 | ECG_ITS ---
Measurements Intervals [place] Rate: 72 P: 53 DC: 129 QRS: 71 QRSD: 88 T: 66 QT: 361 QTc: 397 Interpretive Statements SINUS RHYTHM BASELINE WANDER- I, II, III, AVL, AVF NORMAL ECG Electronically Signed On 11-26-2020 13:20:37 CDT by Hayes Hassan D.O.
[2020-11-26] MEDS: SODIUM CHLORIDE 0.9% IV 1,000 ML 999 ML IV CONT (09:32)
[2020-11-26] MEDS: ONDANSETRON INJ 4 MG/2 ML VIAL 8 MG IV PUSH (09:35)
[2020-11-26 09:37] LABS: Basophils Absolute Auto 0.04 K/mm3 (0.00-0.10); Basophils Percent Auto 0.5 % (0.0-1.0); Eosinophils Absolute Auto 0.17 K/mm3 (0.02-0.50); Eosinophils Percent Auto 2.2 % (1.0-6.0); Hematocrit 40.8 % (35.0-49.0); Hemoglobin 13.1 g/dL (12.0-15.0); Immature Granulocyte Absolute 0.04 K/mm3 (0.00-0.00); Immature Granulocyte Percent A 0.5 % (0.0-0.0); Lymphocytes Absolute Auto 0.93 K/mm3 (1.10-4.50); Lymphocytes Percent Auto 12.1 % (18.0-42.0); Mean Corpuscular HGB Conc 32.1 g/dL (32.0-36.0); Mean Corpuscular Hemoglobin 27.8 pg (27.0-31.0); Mean Corpuscular Volume 86.6 fL (78.0-102.0); Mean Platelet Volume 9.2 fl (9.2-11.8); Monocytes Absolute Auto 0.55 K/mm3 (0.10-0.90); Monocytes Percent Auto 7.2 % (2.0-11.0); Neutrophils Percent Auto 77.5 % (50.0-70.0); Platelet Count Result 270 K/mm3 (150-420); Red Blood Count 4.71 M/mm3 (4.20-5.40); Red Cell Distribution Width 13.2 % (11.6-14.4); White Blood Count 7.7 K/mm3 (4.8-10.8)
[2020-11-26] MEDS: HYDROmorphone HCL INJ (*CRX) 2 MG/ML VIAL 1 MG IV PUSH (09:41)
[2020-11-26 09:58] LABS: Alanine Aminotransferase 220 U/L (14-59); Albumin Level 3.4 g/dL (3.4-5.0); Alkaline Phosphatase 108 U/L (46-116); Anion Gap 10 mmol/L (8-16); Aspartate Amino Transferase 34 U/L (15-37); Bilirubin,Total 0.4 mg/dL (0.00-1.00); Blood Urea Nitrogen 10 mg/dL (7-18); Calcium 9.1 mg/dL (8.5-10.1); Carbon Dioxide 27 mmol/L (21-32); Chloride 104 mmol/L (98-108); Estimated Glomerular Filt Rate > 60; Glucose 77 mg/dL (70-99); Lipase 162 U/L (73-393); Osmolality Calculated 290 mOsm/kg (285-295); Potassium 4.4 mmol/L (3.5-5.1); Sodium 141 mmol/L (136-145); Total Protein 7.4 g/dL (6.4-8.2)
[2020-11-26 10:03] LABS: Lactic Acid Reflex 1.3 mmol/L (0.4-2.0)
--- NOTE | 2020-11-26 10:35 | ED.ABDPAIN ---
HPI - Abdominal Pain General Chief Complaint: Abdominal Pain Stated Complaint: PANCREATITIS Source: patient Mode of arrival: ambulatory Limitations: no limitations History of Present Illness HPI narrative: Pt in tears, states pain and vomiting are out of control. SHe has nonalcoholic pancreatits, and emesis. she has a total of three episodes of this. This last episode started last week. She was seen here twice and has had 2 ct scans. SHe wants us to understandably avoid ct if possible. She was here yesterday and got 1 liter of fluid as well. MD elicited complaint: abdominal pain Onset (ago): day(s) Pain Consistency: constant Location: epigastric Severity: severe Quality: sharp Radiation: epigastric Exacerbating factors: vomiting Associated symptoms: nausea and vomiting Related Data Allergies Allergy/AdvReac Type Severity Reaction Status Date / Time No Known Allergies Allergy Unknown Verified 09/03/20 13:34 Review of Systems Constitutional: Constitutional: Denies chills, Reports fatigue, Denies fever(s) and Reports weakness Eyes: Eyes: Reports no additional eye complaints ENT: Reports system reviewed and no additional complaints, except as documented Cardiovascular: Cardiovascular: Reports no additional cardiovascular complaints Respiratory: Respiratory: Reports no additional respiratory complaints Gastrointestinal: Gastrointestinal: Reports abdominal pain, Reports nausea and Reports vomiting Genitourinary: Genitourinary: Reports no additional female genitourinary complaints Musculoskeletal: Musculoskeletal: Reports no additional musculoskeletal complaints Integumentary/Breasts: Skin/Breast: Reports system reviewed and no additional complaints, except as docu Neurologic: Reports system reviewed and no additional complaints, except as documented Psychiatric: Psychiatric: Reports no additional psychiatric complaints Endocrine: Endocrine: Reports no additional endocrine complaints Hematologic/Lymphatic: Hematologic/Lymphatic: Reports no additional hematologic/lymphatic complaints Allergic/Immunologic: Allergic/Immunologic: Reports no additional allergic/immunologic complaints [facility] Past Medical History Medical History Acute acalculous cholecystitis AVRIL (generalized anxiety disorder) GERD (gastroesophageal reflux disease) Marijuana smoker Pseudocyst of pancreas Surgical History Surgical History H/O tubal ligation History of breast lump/mass excision History of cholecystectomy Family History Family History Father Hypertension Mother Cholecystectomy planned Sibling , Brother - MVA Motor vehicle accident victim Other Breast cancer Social History Social History Smoking status: Never smoker Second hand tobacco smoke exposure: Yes Alcohol intake: never Substance use: current Substance use type: marijuana and painkillers Last use: Marijuana at midnight 11/21 Gender identity (if verbalized by the patient): Female Spiritual care concerns: No Agree to blood products: Yes Exam Const: General: alert and ill appearing Nutritional Appearance: well nourished Orientation/consciousness: patient oriented x3 Other: crying HENMT: Head: normal to inspection Eyes: Conjunctivae: conjunctivae normal Pupils: Equal, round and reactive pupils present Chest: Chest palpation & inspection: normal inspection of the chest Resp: Effort & Inspection: normal respiratory effort Auscultation: clear to auscultation bilaterally Cardio: Rate: regular rate Rhythm: regular rhythm GI: GI Palp: Yes Soft to palpation and Yes Tenderness to palpation present (GI) : General: Yes no CVA tenderness Back/Spine/Pelvis: Back: no CVA tenderness Skin: General
[2020-11-26 11:30] VITALS: BP 119/74; PULSE 88; RESP 15; O2SAT 100
[2020-11-26 12:30] VITALS: BP 112/64; PULSE 61; RESP 18; TEMP 36.6; O2SAT 98
[2020-11-26 12:31] LABS: Add Urine Microscopic? YES; Appearance Urine Clear (Clear); Bilirubin Urine Negative (Negative); Blood Urine 3+ (Negative); Color Urine Light Yellow (Yellow); Glucose Urine UA Negative (Negative); Ketones Urine 2+ (Negative); Leukocyte Esterase Ur Negative LEU/UL (Negative); Nitrate Urine Negative (Negative); Protein Urine Negative (Negative); Urobilinogen Urine 0.2 mg/dL (0.2-1.0); pH Urine 6.5 (5.0-8.0)
[2020-11-26 12:39] LABS: Bacteria Urine Trace /hpf; Squamous Epithelial Cell Urine Few /hpf (Few); WBC Urine None seen /hpf (0-3)
--- NOTE | 2020-11-26 12:40 | PM.IMHP ---
H&P: HPI History of Present Illness Date/Time: 11/26/20 12:40 this is a 40-year-old female that presented to urgent care with complaints of abdominal pain and nausea and vomiting. Patient has a past medical history of anxiety, GERD, cannabis use, pseudocyst of the pancreas. Patient was recently discharged on 11/24/2020 and diagnosed with acute pancreatitis at that time she was treated with IV fluids morphine and Zofran at that time patient was anxious to discharge home. Patient was given a prescription by her primary care physician to receive IV fluids x2. She received her first IV fluid treatment yesterday and was scheduled to have 1 today. Patient notes that while she was at home she had excessive nausea and vomiting and abdominal pain and came to our ED. originally patient noted that she would not stay here overnight and she just recently was discharged. I notify her that if she left she would have to leave probably leave AMA she declined noting that her insurance will not pay for the bill. I also asked patient what would she do if she goes home and continues to have nausea and vomiting she did noted that she will return back to our ED. At that point I informed patient that she needs to remain here for complete treatment for her condition to improve. ED doctor spoke with patient and she agrees to remain in our hospital as observation. Patient continues to have nausea and vomiting. WBC 7.7 hemoglobin 13.1 hematocrit 40.8, platelets 270, sodium 141 potassium 4.4, BUN 10, creatinine 0.83, lactic acid 1.3, ALT 220, AST 34, lipase 162. Patient being admitted for treatment of nausea and vomiting and pancreatitis <JAZMYN Jang - Last Filed: 11/26/20 13:27> Chief Complaint: Nausea and vomiting and abdominal pain <JAZMYN Jang - Last Filed: 11/26/20 13:27> Review of Systems Review of Systems: A 14 organ system Review of Systems was performed and pertinent positives included in the HPI, otherwise remaining ROS is negative. <JAZMYN Jang - Last Filed: 11/26/20 13:27> [facility] Past Medical History Medical History: Medical History Acute acalculous cholecystitis AVRIL (generalized anxiety disorder) GERD (gastroesophageal reflux disease) Marijuana smoker Pseudocyst of pancreas <JAZMYN Jagn - Last Filed: 11/26/20 13:27> Surgical History Surgical History: Surgical History H/O tubal ligation History of breast lump/mass excision History of cholecystectomy <JAZMYN Jang - Last Filed: 11/26/20 13:27> Family History Family History: Family History Father Hypertension Mother Cholecystectomy planned Sibling , Brother - MVA Motor vehicle accident victim Other Breast cancer <JAZMYN Jang - Last Filed: 11/26/20 13:27> Social History Social History: Social History Smoking status: Smoker, status unknown Second hand tobacco smoke exposure: Yes Alcohol intake: unknown Substance use: current Substance use type: marijuana Last use: Marijuana at midnight 11/21 Gender identity (if verbalized by the patient): Female Sexual Orientation (if Verbalized by the Patient): Straight or Heterosexual Spiritual care concerns: No Agree to blood products: Yes <JAZMYN Jang - Last Filed: 11/26/20 13:27> Meds Home Medications and Allergies Home medications: Home Medications Medication Instructions Recorded Confirmed Type cholecalciferol (vitamin D3) 25 25 mcg PO DAILY #30 cap 06/24/20 11/26/20 Rx mcg (1,000 unit) capsule fluticasone propionate 50 1 spray INTRANASAL DAILY #9.9 ml 06/24/20 11/26/20 Rx mcg/actuation nasal spray,suspension ibuprofen 800 mg tablet 800 mg PO TID P
[2020-11-26 13:00] VITALS: PULSE 61; RESP 18; TEMP 36.6; O2SAT 98
[2020-11-26] MEDS: SODIUM CHLORIDE 0.9% IV 1,000 ML 100 ML IV CONT (13:00)
[2020-11-26 13:11] VITALS: BP 112/64
[2020-11-26] MEDS: ONDANSETRON INJ 4 MG/2 ML VIAL IV PUSH (13:48)
[2020-11-26] MEDS: LORazepam INJ (*CRX) 2 MG/ML VIAL 0.5 MG IV PUSH (13:48)
[2020-11-26] MEDS: HYDROmorphone HCL INJ (*CRX) 2 MG/ML VIAL 0.5 MG IV PUSH (14:15)
[2020-11-26 14:25] VITALS: BMI 34.2
--- NOTE | 2020-11-26 14:34 | PC.NURSE ---
Pt admitted to room 202 from the ER. Status is OBS. admitted for abdominal pain, N&V.
[2020-11-26 15:16] VITALS: BP 125/82; PULSE 71; RESP 18; TEMP 35.7; O2SAT 99
--- NOTE | 2020-11-26 15:45 | PC.NURSE ---
Pt is at nurse desk and wanting to go home. States she is feeling fine and much better than the first time she came in and wants to sign AMA. Charge nurse notified and notification of ERP/Hospitalist.
--- NOTE | 2020-11-26 16:05 | PC.NURSE ---
AMA paperwork signed c risks/benefits explained in detail. Pt still signed AMA and doesn't want to stay. D/C instruction to f/u c her FMD given.
--- NOTE | 2020-11-26 16:14 | PC.NURSE ---
1600 Dr. Watkins notified that patient states she wants to go AMA. acknowledged understanding. Patient's nurse went over AMA paperwork. Patient states understanding risks. ;
--- NOTE | 2020-11-26 16:16 | PC.NURSE ---
Addendum entered by Susannah Davis RN 11/26/20 16:31: Patient left floor with spouse. Patient alert, oriented, answering questions appropriately. States she is feeling fine and doesn't need to stay. Ambulation steady, no grimacing or c/o pain. Original Note: 1610 Patient left floor with spouse after nurse removed the IV.
--- NOTE | 2020-11-26 16:18 | PC.NURSE ---
1615 Danielle Buckner, patient's PCP, notified of patient going AMA.
--- NOTE | 2020-11-28 15:46 | PC.NURSE ---
Unable to contact for discharge call back.
== END 2020-11-26 16:10 | disposition left against medical advice (07) ==
LOC: CHSED 08:54 → CHS2ND 12:15
PROVIDERS: Admitting Provider Emergency Medicine; Emergency Provider Emergency Medicine; PCP Nurse Practitioner Family; Visit Provider Emergency Medicine
DX: K85.90 Acute pancreatitis without necrosis or infection, unspecified (principal); K21.9 Gastro-esophageal reflux disease without esophagitis; M47.816 Spondylosis without myelopathy or radiculopathy, lumbar region; F12.90 Cannabis use, unspecified, uncomplicated; F41.1 Generalized anxiety disorder; Z53.29 Procedure and treatment not carried out because of patient's decision for other reasons; Z90.49 Acquired absence of other specified parts of digestive tract
CPT/HCPCS: 36415; 80053; 81001; 83605; 83690; 85025; 93005; 96361; 96374; 96375; 96376; 99285; A9270; G0378; G0379; J1170; J2060; J2405; J7030

== ENCOUNTER 2021-02-19 10:02 | Outpatient (RCR) | payer OTHER, SELFPAY ==
--- NOTE | 2021-02-19 11:03 | PTOPEVAL ---
Thank you for referring Danielle Marquez to [facility].? The patient is scheduled to be seen for therapy? ____x/week for ___ weeks. Please review, sign, date and return this plan of care ANNIE. I agree with and certify that the following plan of care is medically necessary. Referring Physician Date Admitting Provider: Attending Provider: DARIUS DA SILVA Referring Provider: RyanPT Outpatient Evaluation Start: 02/19/21 10:04 Freq: Status: Active Protocol: Document 02/19/21 10:04 ACR (Rec: 02/19/21 11:02 ACR [id number]) Therapy Assessment Status Assessment Status Assessment Status Evaluation Outpatient Past Medical History Neurological History Hx Neurological Disorders No Significant History Cardiovascular History Hx Cardiac Disorders No Significant History Respiratory History Hx Respiratory Disorders No Significant History Gastrointestinal History Hx Cholecystectomy Yes Hx Gastroesophageal Reflux Disease Yes Hx Pancreatitis Yes Hx Other Gastrointestinal Disorders Yes: abdominal wall cysts Genitourinary History Hx Urinary Tract Infection Yes Musculoskeletal History Hx Back Injury Yes: herniated disk Hx Back Pain Yes Hematological History Hx Hematological Disorders No Significant History Endocrine History Hx Endocrine Disorders No Significant History HEENT History Hx HEENT Disorders No Significant History Integumentary History Hx Skin Disorders No Significant History Reproductive History Hx Section Yes Hx Tubal Ligation Yes Hx Other Reproductive Disorders Yes: Inflammed duct in left breast-Sugery x2 Psychosocial History Hx Anxiety Yes Pain History Has Past Pain Affected Your Daily Life Yes History of Long-Term Prescription Pain Yes Medication Use (Opiates) History of Pain Pump Yes: dilaudid Anesthesia History Hx Anesthesia Reactions No Significant History Other History Hx Recent Acute Infection Yes: abdominal wall cysts, in [facility] for 2 weeks Evaluation Information Problem Diagnosis spinal fusion Onset 01/21/21 Subjective Information Patient states that she got a Query Text:As Reported By Patient/ spinal fusion at L5-S1. She Family states that it was difficult and pretty painful. She states that she was in the hospital for 2 nights and 3 days. She states that the first 2 weeks were really painful and she
== END 2021-02-20 18:00 | disposition home or self-care (01) ==
LOC: CHSPT 10:02
DX: Z98.1 Arthrodesis status (principal)
CPT/HCPCS: 97014; 97110; 97161; G0283

== ENCOUNTER 2021-05-26 08:16 | Outpatient (RCR) | payer OTHER, SELFPAY ==
--- NOTE | 2021-05-27 11:15 | PTOPEVAL ---
Thank you for referring Danielle Marquez to [facility].? The patient is scheduled to be seen for therapy? __3__x/week for 12 visits. Please review, sign, date and return this plan of care ANNIE. I agree with and certify that the following plan of care is medically necessary. Referring Physician Date Admitting Provider: Attending Provider: Leandra Waters, NUT CHOPPER-BC Referring Provider: *PT Outpatient Evaluation Start: 05/26/21 07:54 Freq: Status: Active Protocol: Document 05/26/21 08:05 EVERT (Rec: 05/27/21 07:38 EVERT [id number]) Therapy Assessment Status Assessment Status Assessment Status Evaluation Outpatient Past Medical History Neurological History Hx Neurological Disorders No Significant History Cardiovascular History Hx Cardiac Disorders No Significant History Respiratory History Hx Respiratory Disorders No Significant History Gastrointestinal History Hx Cholecystectomy Yes Hx Gastroesophageal Reflux Disease Yes Hx Pancreatitis Yes Hx Other Gastrointestinal Disorders Yes: abdominal wall cysts Genitourinary History Hx Urinary Tract Infection Yes Musculoskeletal History Hx Back Injury Yes: herniated disk Hx Back Pain Yes Hematological History Hx Hematological Disorders No Significant History Endocrine History Hx Endocrine Disorders No Significant History HEENT History Hx HEENT Disorders No Significant History Integumentary History Hx Skin Disorders No Significant History Reproductive History Hx Section Yes Hx Tubal Ligation Yes Hx Other Reproductive Disorders Yes: Inflammed duct in left breast-Sugery x2 Psychosocial History Hx Anxiety Yes Pain History Has Past Pain Affected Your Daily Life Yes History of Long-Term Prescription Pain Yes Medication Use (Opiates) History of Pain Pump Yes: dilaudid Anesthesia History Hx Anesthesia Reactions No Significant History Other History Hx Recent Acute Infection Yes: abdominal wall cysts, in [facility] for 2 weeks Evaluation Information Problem Diagnosis SI pain bilateral, back pain Onset 03/04/21 Subjective Information Pt. reports she underwent Query Text:As Reported By Patient/ lumbar fusion in January of Family last year. She reports she was doing well initially after surgery, but had an increase in pain around March. She reports that pain is located around the S1 area. She
--- NOTE | 2021-06-23 13:49 | PTOPEVAL ---
Thank you for referring Danielle Marquez to [facility].? The patient is scheduled to be seen for therapy? _2___x/week for 4 visits. Please review, sign, date and return this plan of care ANNIE. I agree with and certify that the following plan of care is medically necessary. Referring Physician Date Admitting Provider: Attending Provider: Leandra Waters, ELECTRICAL SIGN WIRER-RADHA Referring Provider: *PT Outpatient Evaluation Start: 05/26/21 07:54 Freq: Status: Active Protocol: Document 06/23/21 13:14 EVERT (Rec: 06/23/21 13:49 EVERT [id number]) Therapy Assessment Status Assessment Status Assessment Status Progress Outpatient Past Medical History Neurological History Hx Neurological Disorders No Significant History Cardiovascular History Hx Cardiac Disorders No Significant History Respiratory History Hx Respiratory Disorders No Significant History Gastrointestinal History Hx Cholecystectomy Yes Hx Gastroesophageal Reflux Disease Yes Hx Pancreatitis Yes Hx Other Gastrointestinal Disorders Yes: abdominal wall cysts Genitourinary History Hx Urinary Tract Infection Yes Musculoskeletal History Hx Back Injury Yes: herniated disk Hx Back Pain Yes Hematological History Hx Hematological Disorders No Significant History Endocrine History Hx Endocrine Disorders No Significant History HEENT History Hx HEENT Disorders No Significant History Integumentary History Hx Skin Disorders No Significant History Reproductive History Hx Section Yes Hx Tubal Ligation Yes Hx Other Reproductive Disorders Yes: Inflammed duct in left breast-Sugery x2 Psychosocial History Hx Anxiety Yes Pain History Has Past Pain Affected Your Daily Life Yes History of Long-Term Prescription Pain Yes Medication Use (Opiates) History of Pain Pump Yes: dilaudid Anesthesia History Hx Anesthesia Reactions No Significant History Other History Hx Recent Acute Infection Yes: abdominal wall cysts, in [facility] for 2 weeks Evaluation Information Problem Diagnosis SI pain, bilateral back Subjective Information Pt. reports she developed Query Text:As Reported By Patient/ increasing knee pain last week Family and was unable to bear weight on the right l.e., therefore she cancelled treatment. She reports her knee is feeling better. She reports that her back pain is mild today. She states that she hasnt been
== END 2021-07-06 23:59 | disposition home or self-care (01) ==
LOC: CHSPT 08:16
PROVIDERS: Visit Provider Nurse Practitioner Family
DX: M54.50 Low back pain, unspecified (principal); M54.10 Radiculopathy, site unspecified
CPT/HCPCS: 97014; 97110; 97140; 97161; G0283

== ENCOUNTER 2021-07-01 11:04 | Outpatient (CLI) | payer OTHER, SELFPAY ==
--- NOTE | ~2021-07-01 | XR_ITS ---
XR knee RT 2V DATE: 07/01/2021 11:20 INDICATION: Generalized knee pain TECHNIQUE: AP and lateral views COMPARISON: 04/20/2018 right knee FINDINGS: There is mild periarticular spurring at the medial compartment with slight loss of medial c ompartment joint space height. There is minimal periarticular spurring of the patella. No fracture or dislocation or joint effusion. No periosteal reaction or bone destruction. No radiopaq ue intra-articular loose body or chondrocalcinosis. IMPRESSION: Stable mild osteoarthritis at patellofemoral and medial compartments since 04/20/2018 Reviewed, dictated and finalized at location A. IMPRESSION: Stable mild osteoarthritis at patellofemoral and medial compartment s since 04/20/2018
== END 2021-07-01 11:05 | disposition home or self-care (01) ==
LOC: CHSIMG 11:06
PROVIDERS: PCP Nurse Practitioner Family; Visit Provider Nurse Practitioner Family
DX: M25.561 Pain in right knee (principal)
CPT/HCPCS: 73560

== ENCOUNTER 2021-07-14 20:34 | Emergency (ER) | payer OTHER, SELFPAY ==
[2021-07-14 20:47] VITALS: BP 140/98; PULSE 87; RESP 18; TEMP 36.8; O2SAT 99
--- NOTE | 2021-07-14 20:57 | ED.GENADULT ---
HPI - General Adult General Chief complaint: Unspecified Stated complaint: infection in RT breast Time Seen by Provider: 07/14/21 20:57 Source: patient History of Present Illness HPI narrative: [age] old female with a history AVRIL, chronic pancreatitis/ pseudocyst DJD, acalculous cholecystitis, Chronic low back pain status post spinal fusion, recurrent breast abscesses/ cysts status post removal presents to the ER with a five-day history of -- right breast pain tenderness. No fever or chills. No nipple discharge. patient is non lactating. Onset (ago): day(s) ( started 5 days ago) Location: chest ( right breast pain) Radiation: non-radiation Severity: severe Quality: aching Pain Consistency: constant Relieving factors: none Exacerbating factors: none Associated symptoms: denies other symptoms Treatments prior to arrival: none Related Data Allergies Allergy/AdvReac Type Severity Reaction Status Date / Time No Known Allergies Allergy Unknown Verified 07/14/21 20:55 Review of Systems Review of Systems: All systems reviewed & are unremarkable except as noted in HPI and below Constitutional: Constitutional: Reports as per HPI and Reports no additional constitutional complaints Eyes: Eyes: Reports as per HPI and Reports no additional eye complaints ENT: Reports system reviewed and no additional complaints, except as documented and Reports as per HPI Cardiovascular: Cardiovascular: Reports as per HPI and Reports no additional cardiovascular complaints Respiratory: Respiratory: Reports as per HPI and Reports no additional respiratory complaints Gastrointestinal: Gastrointestinal: Reports as per HPI and Reports no additional gastrointestinal complaints Genitourinary: Genitourinary: Reports no additional female genitourinary complaints and Reports as per HPI Musculoskeletal: Musculoskeletal: Reports no additional musculoskeletal complaints and Reports as per HPI Integumentary/Breasts: Skin/Breast: Reports system reviewed and no additional complaints, except as docu and Reports as per HPI Comments: right breast pain /tenderness / swelling Neurologic: Reports system reviewed and no additional complaints, except as documented and Reports as per HPI Psychiatric: Psychiatric: Reports no additional psychiatric complaints Endocrine: Endocrine: Reports no additional endocrine complaints Hematologic/Lymphatic: Hematologic/Lymphatic: Reports no additional hematologic/lymphatic complaints Allergic/Immunologic: Allergic/Immunologic: Reports no additional allergic/immunologic complaints PMFSH Past Medical History Medical History Acute acalculous cholecystitis AVRIL (generalized anxiety disorder) GERD (gastroesophageal reflux disease) Marijuana smoker Pseudocyst of pancreas Surgical History Surgical History H/O tubal ligation History of breast lump/mass excision History of cholecystectomy Family History Family History Father Hypertension Mother Cholecystectomy planned Sibling , Brother - MVA Motor vehicle accident victim Other Breast cancer Social History Social History Smoking status: Current every day smoker Second hand tobacco smoke exposure: Yes Alcohol intake: unknown Substance use: current Substance use type: marijuana Last use: Marijuana at midnight 11/21 Gender identity (if verbalized by the patient): Female Sexual Orientation (if Verbalized by the Patient): Straight or Heterosexual Spiritual care concerns: No Agree to blood products: Yes Exam Const: General: no acute distress and alert Orientation/consciousness: patient oriented x3 HENMT: Head: normal to inspection Eyes: Conjunctivae: conjunctivae normal Pupils: Equal, round and reactive pup
--- NOTE | 2021-07-14 20:58 | PC.NURSE ---
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
[2021-07-14] MEDS: HYDROcodone/acetaminophen (*CRX) 5-325 MG TABLET 1 TAB PO (21:30)
[2021-07-14] MEDS: CLINDAMYCIN 600 MG/D5W 50 ML 600 MG/50 ML PIGGYBACK 100 MG IVPB (21:31)
[2021-07-14 21:32] LABS: Basophils Absolute Auto 0.03 K/mm3 (0.00-0.10); Basophils Percent Auto 0.4 % (0.0-1.0); Eosinophils Percent Auto 1.3 % (1.0-6.0); Hematocrit 35.7 % (35.0-49.0); Hemoglobin 11.2 g/dL (12.0-15.0); Immature Granulocyte Absolute 0.02 K/mm3 (0.00-0.00); Immature Granulocyte Percent A 0.3 % (0.0-0.0); Lymphocytes Absolute Auto 1.38 K/mm3 (1.10-4.50); Lymphocytes Percent Auto 17.6 % (18.0-42.0); Mean Corpuscular HGB Conc 31.4 g/dL (32.0-36.0); Mean Corpuscular Hemoglobin 25.6 pg (27.0-31.0); Mean Corpuscular Volume 81.5 fL (78.0-102.0); Mean Platelet Volume 10.4 fl (9.2-11.8); Monocytes Percent Auto 10.2 % (2.0-11.0); Neutrophils Absolute Auto 5.5 K/mm3 (1.7-7.2); Neutrophils Percent Auto 70.2 % (50.0-70.0); Platelet Count Result 255 K/mm3 (150-420); Red Blood Count 4.38 M/mm3 (4.20-5.40); Red Cell Distribution Width 14.6 % (11.6-14.4); White Blood Count 7.8 K/mm3 (4.8-10.8)
[2021-07-14 21:46] LABS: Partial Thromboplastin Time 33.1 SEC (23.90-30.70); Prothrombin Time 10.2 Seconds (9.50-12.10)
[2021-07-14 21:50] LABS: Lactic Acid Reflex 0.7 mmol/L (0.4-2.0)
[2021-07-14 21:54] LABS: Alanine Aminotransferase 14 U/L (14-59); Albumin Level 3.5 g/dL (3.4-5.0); Alkaline Phosphatase 57 U/L (46-116); Anion Gap 9 mmol/L (8-16); Aspartate Amino Transferase 11 U/L (15-37); Bilirubin,Total 0.2 mg/dL (0.00-1.00); Blood Urea Nitrogen 15 mg/dL (7-18); Calcium 8.8 mg/dL (8.5-10.1); Carbon Dioxide 27 mmol/L (21-32); Chloride 102 mmol/L (98-108); Estimated CRCL calculation 59 ml/min; Estimated Glomerular Filt Rate > 60; Glucose 130 mg/dL (70-99); Lipase 112 U/L (73-393); Osmolality Calculated 288 mOsm/kg (285-295); Potassium 3.5 mmol/L (3.5-5.1); Sodium 138 mmol/L (136-145); Total Protein 6.6 g/dL (6.4-8.2)
[2021-07-14 22:06] VITALS: BP 123/79; PULSE 88; RESP 16; O2SAT 98
[2021-07-14 22:10] LABS: Add Urine Microscopic? YES; Appearance Urine Clear (Clear); Bilirubin Urine Negative (Negative); Blood Urine 3+ (Negative); Color Urine Light Yellow (Yellow); Glucose Urine UA Negative (Negative); Ketones Urine Negative (Negative); Leukocyte Esterase Ur 1+ (Negative); Nitrate Urine Negative (Negative); Protein Urine Negative (Negative); Urobilinogen Urine 0.2 mg/dL (0.2-1.0); pH Urine 5.5 (5.0-8.0)
[2021-07-14 22:27] LABS: Squamous Epithelial Cell Urine Few /hpf (Few); WBC Urine 0-3 /hpf (0-3)
[2021-07-14 22:38] VITALS: BP 133/79; PULSE 81; RESP 18; TEMP 36.8; O2SAT 99
== END 2021-07-14 22:39 | disposition home or self-care (01) ==
PROVIDERS: Emergency Provider Internal Medicine Critical Care Medicine; PCP Nurse Practitioner Family
DX: N61.1 Abscess of the breast and nipple (principal); N60.11 Diffuse cystic mastopathy of right breast
CPT/HCPCS: 36415; 80053; 81001; 83605; 83690; 85025; 85610; 85730; 87040; 96365; 99284; A9270

== ENCOUNTER 2021-09-02 14:24 | Outpatient (CLI) | payer OTHER, SELFPAY ==
--- NOTE | ~2021-09-02 | US_ITS ---
EXAMINATION: US pelvic complete w TV DATE: 09/02/2021 15:03 INDICATION: Dysmenorrhea Comparison:No prior studies for comparison. TECHNIQUE: Multiple transabdominal and endovaginal sonographic images of the pelvis performed. FINDINGS: The uterus measures 9 x 4.2 x 7.6 cm. There is a hypoechoic uterine mass measuring 4 x 3.8 x 3.5 cm, compatible with a fibroid. The endometrial complex measures 7 mm. The right ovary measures 3.2 x 1.5 x 2.5 cm and the left ovary measures 2.7 x 2.2 x 2.5 cm. There ar e small follicles in each ovary. Normal doppler signal in both ovaries. There is no free fluid in the pelvis. There are no abnormal masses seen on either side. IMPRESSION: 1. Uterine fibroid measuring up to 4 cm maximum dimension. Reviewed, dictated and finalized at location A.
[2021-09-02 15:21] LABS: Add Urine Microscopic? YES; Appearance Urine Clear (Clear); Bilirubin Urine Negative (Negative); Blood Urine 3+ (Negative); Color Urine Light Yellow (Yellow); Glucose Urine UA Negative (Negative); Ketones Urine Negative (Negative); Leukocyte Esterase Ur Negative (Negative); Nitrate Urine Negative (Negative); Protein Urine Negative (Negative); Urobilinogen Urine 0.2 mg/dL (0.2-1.0); pH Urine 6.5 (5.0-8.0)
[2021-09-02 15:26] LABS: Bacteria Urine 1+ /hpf; Squamous Epithelial Cell Urine Few /hpf (Few); WBC Urine None seen /hpf (0-3)
[2021-09-02 15:41] LABS: HIV 1 P24 AG Negative (Negative); HIV 1/2 AB Negative (Negative)
[2021-09-04 05:00] LABS: Hepatitis B Surface Antigen Nonreactive (Nonreactive); Hepatitis C Signal to Cutoff 0.01 ratio (<1.00); Hepatitis C Virus Antibody Nonreactive (Nonreactive)
[2021-09-04 14:22] LABS: RPR Screen Non-Reactive (Non-Reactive)
[2021-09-09 21:13] LABS: HSV 1 IgM Screen Negative (Negative); HSV 2 IgM Screen Negative (Negative)
== END 2021-09-02 14:25 | disposition home or self-care (01) ==
LOC: CHSIMG 14:29
PROVIDERS: PCP Nurse Practitioner Family; Visit Provider Student in an Organized Health Care Education/Training Program
DX: Z11.3 Encounter for screening for infections with a predominantly sexual mode of transmission (principal); R30.9 Painful micturition, unspecified
CPT/HCPCS: 36415; 76830; 76856; 81001; 86592; 86695; 86696; 86703; 87077; 87086; 87088

== ENCOUNTER 2021-10-07 11:22 | Emergency (ER) | payer OTHER, SELFPAY ==
[2021-10-07] VITALS (15 sets, daily range): BP systolic 101–143; BP diastolic 69–95; PULSE 56–70; RESP 18; TEMP 36.6–36.8; O2SAT 98–100
--- NOTE | ~2021-10-07 | XR_ITS ---
XR foot LT min 3V DATE: 10/07/2021 12:02 INDICATION: Bilateral left foot pain for 5 days. No known injury. TECHNIQUE: 4 views COMPARISON: None FINDINGS: No fracture or dislocation, periosteal reaction or bone destruction is detected. Joint spac es are preserved. No erosive changes. IMPRESSION: Negative Reviewed, dictated and finalized at location A. IMPRESSION: Negative
[2021-10-07] MEDS: IBUPROFEN 400 MG TABLET 800 MG PO (12:03)
--- NOTE | 2021-10-07 12:18 | PC.NURSE ---
No crutches available to supply at this time. Encouraged to seek out at [facility] or [facility]. pt states she has cane at home to use.
--- NOTE | 2021-10-07 12:29 | ED.LOWEXIN ---
HPI - Extremity Injury (Lower) General Chief Complaint: Extremity Injury, Lower Stated Complaint: Left foot swollen Time Seen by Provider: 10/07/21 11:26 Source: patient and RN notes reviewed Mode of arrival: ambulatory Limitations: no limitations History of Present Illness complaint: foot injury (inadvertent) Onset (ago): day(s) (3) Injury: Left: foot Place: home Severity: mild Severity scale (1-10): 3 Relieving factors: NSAID Exacerbating factors: weight bearing Associated symptoms: other (none) Other symptoms: none Treatments prior to arrival: other (Rx analgesia) Related Data Allergies Allergy/AdvReac Type Severity Reaction Status Date / Time No Known Allergies Allergy Unknown Verified 10/07/21 11:35 Review of Systems Review of Systems: All systems reviewed & are unremarkable except as noted in HPI and below Constitutional: Constitutional: Reports no additional constitutional complaints Eyes: Eyes: Reports no additional eye complaints ENT: Reports system reviewed and no additional complaints, except as documented Cardiovascular: Cardiovascular: Reports no additional cardiovascular complaints Respiratory: Respiratory: Reports no additional respiratory complaints Gastrointestinal: Gastrointestinal: Reports no additional gastrointestinal complaints Genitourinary: Genitourinary: Reports no additional female genitourinary complaints Musculoskeletal: Musculoskeletal: Reports no additional musculoskeletal complaints Integumentary/Breasts: Skin/Breast: Reports system reviewed and no additional complaints, except as docu Neurologic: Reports system reviewed and no additional complaints, except as documented Psychiatric: Psychiatric: Reports no additional psychiatric complaints Endocrine: Endocrine: Reports no additional endocrine complaints Hematologic/Lymphatic: Hematologic/Lymphatic: Reports no additional hematologic/lymphatic complaints Allergic/Immunologic: Allergic/Immunologic: Reports no additional allergic/immunologic complaints [facility] Past Medical History Medical History Acute acalculous cholecystitis Degenerative arthritis of lumbar spine AVRIL (generalized anxiety disorder) GERD (gastroesophageal reflux disease) History of vaginal delivery x2 HSV infection Irritable bowel syndrome Marijuana smoker Osteoarthritis of right knee Pseudocyst of pancreas Surgical History Surgical History H/O tubal ligation History of breast lump/mass excision History of section x 1 History of cholecystectomy Family History Family History Father Hypertension Asthma Depression Sibling , Brother - MVA Motor vehicle accident victim Diabetes mellitus Depression Other Breast cancer Grandparent History of cancer Social History Social History Smoking status: Never smoker Second hand tobacco smoke exposure: Yes Alcohol intake: unknown Substance use: current Substance use type: marijuana Last use: Marijuana at midnight 11/21 Gender identity (if verbalized by the patient): Female Sexual Orientation (if Verbalized by the Patient): Straight or Heterosexual Spiritual care concerns: No Agree to blood products: Yes Exam Const: General: healthy appearing and no acute distress Nutritional Appearance: well nourished Orientation/consciousness: patient oriented x3 Limitations: no limitations HENMT: Head: normal to inspection Ears: external ears normal, TM's normal bilaterally and EAC's normal General nose exam: Normal external nose present and Normal nares present Face and sinus: normal facial exam and sinuses nontender Mouth: Yes Normal oral and palatal mucosa present and Yes moist mucous membranes Teeth and gingiva: dentition normal Throat: po
== END 2021-10-07 12:48 | disposition home or self-care (01) ==
PROVIDERS: Emergency Provider Emergency Medicine; PCP Nurse Practitioner Family
DX: S93.602A Unspecified sprain of left foot, initial encounter (principal)
CPT/HCPCS: 73630; 99283; A9270

== ENCOUNTER 2021-11-27 01:07 | Day surgery (SDC) | payer OTHER, SELFPAY ==
[2021-11-24 14:29] VITALS: BMI 22.7
--- NOTE | 2021-11-24 14:31 | SUR.PREOP ---
Report to the Outpatient Waiting Room, entrance under the green pavilion located off [facility], at time _0700 on date 11/27/21 . OR Time: _0900 . - You and your visitor will be asked to self-screen and do not enter if you have any COVID symptoms. - Only one visitor and NO children visitors are allowed at this time. - The patient visitor is requested to leave or wait in car when not with patient due to restrictions. - A mask is required within the hospital. Patients may have clear liquids (water, carbonated beverages, clear teas, apple juice) until 3 hours prior to surgery with a maximum of 20 ounces. - No food from midnight until time of surgery - Infants may have breast milk until 4 hours before surgery, infant formula 6 hours prior to surgery. - Children will be allowed to drink immediately following surgery. If applicable, please bring a bottle or sippy cup to assist with drinking. Juice, water, soda, and popsicles are readily available. For infants on formula, please bring formula the day of surgery. Pacifiers are allowed. Take the following medications with a SIP of water the morning of surgery: __alprazolam Medications to discontinue per physician n/a Date to take last dose___n/a Please no make-up, nail tamazight, hairspray, perfume, deodorant, or body powder the day of surgery. No jewelry (including any body piercings) or valuables the day of surgery, leave them at home. Please take a shower or bath the night before, or the morning of, surgery with an antibacterial soap. Wear comfortable, loose fitting clothing. Children are encouraged to wear pajamas. - Jewelry must be removed prior to entering the operating room. Rings and piercings that are not removed may be cut off. - The hospital will not accept responsibility for valuables. - Please leave all valuables, including medications, at home the day of surgery. If you are going home after surgery, a licensed school bus driver/custodian must drive you home. - NO public transportation without another adult. - We recommend that an adult stay with you for 24 hours following discharge. - We also recommend that you do not drive, make important decision, drink alcoholic beverages, or take any drugs that were not prescribed by your health care provider for at least 24 hours after your discharge time. For Pediatric surgeries, we recommend two adults accompany the child home (only one inside the building at this time). Follow any additional instructions given to you from your surgeon. If you or anyone in your household have experienced Covid symptoms in the past week, please notify your surgeon or the nurse liaison at the phone number below for possible testing. Telephone instructions given to oniel gutiérrez and asked if any additional questions and then verbalized understanding. Patient advised to call surgeon office or pre surgery nurse liaison [phone] if any additional questions.
--- NOTE | 2021-11-26 09:26 | WPDANESEPPF ---
Anes - Initial Pre Proc Eval Procedure: Operation Date: 11/27/21 09:00 Proposed Procedures p Hysteroscopy Dilation and Curettage with Danii Endometrial Ablation, Possible Myosure - Gabi Montero MD Date/Time: 11/26/21 09:26 Surgeon: Gabi Montero MD Pre Op Diagnosis: menorrhagia, dysmenorrhea Patient Data Age: 41 Gender: F Height: 1.61 m Weight: 59.09 kg Allergies Allergy/AdvReac Type Severity Reaction Status Date / Time No Known Allergies Allergy Unknown Verified 11/24/21 14:10 Home Medications Medication Instructions Recorded Confirmed Type ibuprofen 800 mg tablet 800 mg PO TID #20 tabs 10/07/21 11/27/21 Rx omeprazole magnesium 20 mg 20 mg PO BID #20 tabs 10/07/21 11/27/21 Rx tablet,delayed release (Prilosec OTC) trazodone 100 mg tablet 100 mg PO QHS #30 tabs 10/22/21 11/27/21 Rx Adults Multivitamin 1 tab-cap PO DAILY 11/24/21 11/27/21 History alprazolam 0.5 mg tablet 0.5 mg PO PRN PRN anxiety 11/24/21 11/27/21 History lysine 1,000 mg tablet 1,000 mg PO DAILY 11/24/21 11/27/21 History fluoxetine 20 mg capsule 20 mg PO HS 11/27/21 11/27/21 History Patient hx anesthesia problems: none Family hx anesthesia problems: none Results Review: All pre-operative results and documents have been reviewed as part of the pre-operative evaluation. [facility] Past Medical History Medical History (Updated 11/27/21 @ 08:20 by Madi Hernández DO) Acute acalculous cholecystitis Chronic pain dilaudid pain pump - not for years - only when she had pancreatitis Chronic pancreatitis Degenerative arthritis of lumbar spine AVRIL (generalized anxiety disorder) GERD (gastroesophageal reflux disease) History of vaginal delivery x2 HSV infection Irritable bowel syndrome Marijuana smoker Osteoarthritis of right knee Pseudocyst of pancreas Surgical History Surgical History H/O colonoscopy with polypectomy 05/2021 H/O tubal ligation History of back surgery History of breast lump/mass excision History of section x 1 History of cholecystectomy Family History Family History Father Hypertension Asthma Depression Sibling , Brother - MVA Motor vehicle accident victim Diabetes mellitus Depression Other Breast cancer Grandparent History of cancer Social History Social History Smoking status: Never smoker Second hand tobacco smoke exposure: Yes Smoking end date: 04/04/09 Additional smoking assessment comments: smoking 10 years 1ppd Alcohol intake: unknown Substance use: current Substance use type: marijuana Other substance usage details: medical marijuana Last use: Marijuana at midnight 11/21 Living arrangements: with family Gender identity (if verbalized by the patient): Female Sexual Orientation (if Verbalized by the Patient): Straight or Heterosexual Spiritual care concerns: No Agree to blood products: Yes Anes - Eval Final PreProcedure Day of Procedure 11/26/21 09:26 Patient weight: normal Heart: regular rate and rhythm Lungs: clear to auscultation and normal air movement Airway: Mallampati scale class II Neurological: alert and oriented Last oral intake: >/= 8 hours ASA classification: III Emergent: no Anesthetic plan: proceed Anesthesia type and monitoring: general GIVS and standard monitoring Results Review: All pre-operative results and documents have been reviewed as part of the pre-operative evaluation. Informed Consent: The patient's anesthetic plan and its attendant risks and benefits were discussed with the patient/family/POA. Questions were solicited and answers provided to the satisfaction of the patient/family/POA.
--- NOTE | 2021-11-26 17:11 | PM.IMHP ---
H&P: HPI History of Present Illness Date/Time: 11/26/21 17:11 Chief Complaint: Menorrhagia and dysmenorrhea Narrative: Patient is a 41yo woman with history of menorrhagia and dysmenorrhea. Following lengthy discussions in office, patient declines any hormonal management options and has elected to proceed with endometrial ablation as next step in management. In general, patient feels well today without complaints. Review of Systems Review of Systems: All systems reviewed & are unremarkable except as noted in HPI and below Constitutional: Constitutional: Reports as per HPI and Reports no additional constitutional complaints Eyes: Eyes: Reports as per HPI and Reports no additional eye complaints ENT: Reports system reviewed and no additional complaints, except as documented and Reports as per HPI Cardiovascular: Cardiovascular: Reports as per HPI and Reports no additional cardiovascular complaints Respiratory: Respiratory: Reports as per HPI and Reports no additional respiratory complaints Gastrointestinal: Gastrointestinal: Reports as per HPI and Reports no additional gastrointestinal complaints Genitourinary: Genitourinary: Reports no additional female genitourinary complaints and Reports as per HPI Musculoskeletal: Musculoskeletal: Reports no additional musculoskeletal complaints and Reports as per HPI Integumentary/Breasts: Skin/Breast: Reports system reviewed and no additional complaints, except as docu and Reports as per HPI Neurologic: Reports system reviewed and no additional complaints, except as documented and Reports as per HPI Psychiatric: Psychiatric: Reports no additional psychiatric complaints and Reports as per HPI Endocrine: Endocrine: Reports no additional endocrine complaints and Reports as per HPI Hematologic/Lymphatic: Hematologic/Lymphatic: Reports no additional hematologic/lymphatic complaints and Reports as per HPI Allergic/Immunologic: Allergic/Immunologic: Reports no additional allergic/immunologic complaints and Reports as per HPI FOR[facility]LY [facility] Past Medical History Medical History Acute acalculous cholecystitis Chronic pain dilaudid pain pump Chronic pancreatitis Degenerative arthritis of lumbar spine AVRIL (generalized anxiety disorder) GERD (gastroesophageal reflux disease) History of vaginal delivery x2 HSV infection Irritable bowel syndrome Marijuana smoker Osteoarthritis of right knee Pseudocyst of pancreas Surgical History Surgical History H/O colonoscopy with polypectomy 05/2021 H/O tubal ligation History of back surgery History of breast lump/mass excision History of section x 1 History of cholecystectomy Family History Family History Father Hypertension Asthma Depression Sibling , Brother - MVA Motor vehicle accident victim Diabetes mellitus Depression Other Breast cancer Grandparent History of cancer Social History Social History Smoking status: Never smoker Second hand tobacco smoke exposure: Yes Smoking end date: 04/04/09 Additional smoking assessment comments: smoking 10 years 1ppd Alcohol intake: unknown Substance use: current Substance use type: marijuana Other substance usage details: medical marijuana Last use: Marijuana at midnight 11/21 Gender identity (if verbalized by the patient): Female Sexual Orientation (if Verbalized by the Patient): Straight or Heterosexual Spiritual care concerns: No Agree to blood products: Yes Meds Home Medications and Allergies Home Medications Medication Instructions Recorded Confirmed Type ibuprofen 800 mg tablet 800 mg PO TID #20 tabs 10/07/21 11/24/21 Rx omeprazole magnesium 20 mg 20 mg PO BID #20 tabs 10/07/21 11/24/21 Rx tablet,delayed release (Prilose
[2021-11-27 07:14] VITALS: BP 110/63; PULSE 67; RESP 16; TEMP 36.8; O2SAT 100
[2021-11-27] MEDS: ACETAMINOPHEN 500 MG TABLET 1000 MG PO (07:20)
[2021-11-27] MEDS: LACTATED RINGERS 1,000 ML 30 ML IV CONT (07:35)
--- NOTE | 2021-11-27 08:12 | WPDHPUPDATE1 ---
History and Physical Update Update Date/Time: 11/27/21 08:12 History and Physical has been reviewed, including an updated exam of the patient. There are NO changes in the patient's condition. Risks, benefits, and alternatives have been discussed and questions answered. Patient agrees to proceed with procedure.
[2021-11-27] MEDS: LIDOCAINE 1% BUFFERED WITH 8.4% SODIUM BICARB 1 ML SYRINGE 30 ML INFILTRATE (09:08)
[2021-11-27 09:14] VITALS: BP 93/74; PULSE 47; RESP 14; O2SAT 100
--- NOTE | 2021-11-27 09:39 | P.OP_ITS ---
Procedure Note - Detailed Date of Procedure 11/27/21 Pre-op Diagnosis menorrhagia, dysmenorrhea Post-op Diagnosis Same Procedure Performed Hysteroscopy, dilation and curettage, endometrial ablation with Danii Surgeon Gabi Montero MD Anesthesia MAC Findings Minimal amount of polypoid tissue within endometrial cavity, otherwise, appeared normal, bilateral tubal ostia visualized Description of Procedure The patient was taken to the operating room where she self-transferred to the operating room table. She was placed in dorsal supine position. Anesthesia was administered and found to be adequate. The patient was repositioned in dorsal lithotomy position with the use of Jack stirrups. She was prepped and draped in usual sterile fashion. A red rubber catheter was used to drain the bladder of 50 cc of concentrated urine. A bivalve speculum was inserted into the vagina. The cervix was well visualized. The anterior lip of the cervix was grasped with a single-tooth tenaculum. A paracervical block was performed with 1% plain lidocaine. 5 cc of lidocaine was administered on either side for a total of 10 cc. The cervix was serially dilated to accommodate a hysteroscope. The hysteroscope was introduced into the endometrial cavity. A general survey was p erformed.? A minimal amount of polypoid tissue was visualized inside of the endometrial cavity. Bilateral tubal ostia were visualized. A few pictures were taken. The hysteroscope was removed. The tenaculum pulled through the cervix and moderate bleeding was noted. A single figure of eight suture using 3-0 vicryl was placed ensuring excellent hemostasis. The tenaculum was replaced slightly higher on the anterior lip of the cervix. A medium-size rigid curette was used to perform a curettage. All quadrants of the endometrial cavity were explored. A moderate amount of tissue was obtained and prepared to be sent to pathology for analysis.? The Danii endometrial ablation device was then opened on the sterile field. The appropriate settings were input on the hand-held device and the array was introduced into the endometrial cavity and deployed. The cervical balloon was insufflated.? An integrity check was completed and passed by the Danii console. After the integrity check was passed successfully, the ablation procedure started automatically and ran for the preset time of 120 seconds. After completion of the ablation procedure, the array was collapsed and the cervical balloon was desufflated. The device was removed.? The tenaculum was removed from the anterior lip of the cervix. No further bleeding was noted. The remainder of the vagina was cleansed and dried and the speculum was removed. The patient was cleansed and dried and taken out of the dorsal lithotomy position. She was awakened from anesthesia without difficulty and transferred to the recovery room in stable condition.? The patient tolerated the procedure well.? All sponge, lap, and instrument counts were correct at the end of the procedure. Estimated Blood Loss 10 IV Fluids 700 Urine Output 50 Drains No Packing No Pathology Yes (endometrial curettings) Complications No immediate complications Condition Stable Disposition Same day [facility] Billing Surgery - Charge Forward: Surgery Billing
[2021-11-27 09:40] VITALS: BP 115/76; PULSE 58; RESP 14; O2SAT 100
[2021-11-27] MEDS: fentaNYL CITRATE INJ (*CRX) 100 MCG/2 ML VIAL 25 MCG IV PUSH (09:57)
[2021-11-27 10:10] VITALS: BP 115/76; PULSE 58; RESP 14; O2SAT 100
[2021-11-27 10:40] VITALS: BP 112/69; PULSE 61; RESP 14
[2021-11-27] MEDS: oxyCODONE HCL (*CRX) 5 MG TAB IR PO (10:59)
[2021-11-27 11:10] VITALS: BP 112/69; PULSE 61; RESP 14
== END 2021-11-27 11:20 | disposition home or self-care (01) ==
PROVIDERS: PCP Nurse Practitioner Family; Visit Provider Student in an Organized Health Care Education/Training Program
PROC: 0U5B8ZZ Destruction of Endometrium, Via Natural or Artificial Opening Endoscopic (ICD-10-PCS; CPT 58563; principal; 2021-11-27 09:00)
DX: N92.0 Excessive and frequent menstruation with regular cycle (principal); N94.6 Dysmenorrhea, unspecified; F12.90 Cannabis use, unspecified, uncomplicated; I25.10 Atherosclerotic heart disease of native coronary artery without angina pectoris; K21.9 Gastro-esophageal reflux disease without esophagitis; K58.9 Irritable bowel syndrome, unspecified; M19.90 Unspecified osteoarthritis, unspecified site; Z90.49 Acquired absence of other specified parts of digestive tract; N84.0 Polyp of corpus uteri
CPT/HCPCS: 58563; 88305; A9270; J2250; J2704; J3010; J7030; J7120

== ENCOUNTER 2022-11-29 16:17 | Outpatient (CLI) | payer OTHER, SELFPAY | END 2022-11-29 16:18 | disposition home or self-care (01) | LOC: CHSIMG 16:18 | PROVIDERS: PCP Nurse Practitioner Family; Visit Provider Nurse Practitioner Family | DX: M54.50 Low back pain, unspecified (principal) | CPT/HCPCS: 99199 ==

== ENCOUNTER 2022-11-30 08:28 | Outpatient (CLI) | payer OTHER, SELFPAY ==
--- NOTE | ~2022-11-30 | XR_ITS ---
Lumbosacral Spine: AP and lateral views Clinical History: Pain COMPARISON: 09/02/2020 Findings: The normal lordotic curve is maintained. Patient has undergone interval posterior interbody fusion from L5 to S1, with interbody fusion device and posterior rods and transpedicular screws pres ent. Remaining disc spaces are preserved. The sacroiliac joints are normally outlined. Impression: Posterior and interbody fusion at L5-S1. No other significant abnormality seen. Reviewed, dictated and finalized at location . Impression: Posterior and interbody fusion at L5-S1. No other significant abnormality seen.
== END 2022-11-30 08:29 | disposition home or self-care (01) ==
LOC: CHSIMG 08:33
PROVIDERS: PCP Nurse Practitioner Family; Visit Provider Nurse Practitioner Family
DX: M54.50 Low back pain, unspecified (principal); Z98.1 Arthrodesis status
CPT/HCPCS: 72100

== ENCOUNTER 2023-06-07 08:09 | Outpatient (CLI) | payer OTHER, SELFPAY ==
--- NOTE | ~2023-06-07 | US_ITS ---
EXAMINATION: US pelvic complete w TV DATE: 06/07/2023 08:36 INDICATION: Unspecified abdominal pain. TECHNIQUE: Multiple transabdominal and transvaginal sonographic images of the pelvis were obtained. COMPARISON: Pelvis ultrasound 09/02/2021, CT abdomen and pelvis 11/23/2020 FINDINGS: TRANSABDOMINAL ULTRASOUND: The uterus measures 12.2 x 7.1 x 7.1 cm. There is physiologic free fluid in the pelvis. TRANSVAGINAL ULTRASOUND: The endometrial complex measures 6 mm in thickness. There is a 9.1 cm subserosal fibroid on the right . The right ovary measures 2.9 x 2.5 x 1.4 cm. The left ovary measures 3.4 x 1.9 x 2.4 cm. There is n ormal vascular flow in the ovaries. IMPRESSION: 1. 9.1 cm uterine fibroid. Reviewed, dictated and finalized at location E. [employer]ICIDE EXPERT IMPRESSION: 1. 9.1 cm uterine fibroid.
== END 2023-06-07 08:10 | disposition home or self-care (01) ==
LOC: CHSIMG 08:10
PROVIDERS: PCP Nurse Practitioner Family; Visit Provider Student in an Organized Health Care Education/Training Program
DX: R10.2 Pelvic and perineal pain (principal); D25.9 Leiomyoma of uterus, unspecified
CPT/HCPCS: 76830; 76856

== ENCOUNTER 2023-06-14 15:10 | Outpatient (CLI) | payer OTHER, SELFPAY ==
--- NOTE | ~2023-06-14 | XR_ITS ---
EXAM: XR knee RT 3V DATE: 06/14/2023 15:30 HISTORY: M25.561 - Pain in right knee . COMPARISON: 07/01/2021. FINDINGS: Normal mineralization. No fracture or dislocation. No lytic or blastic lesion. Moderate me dial joint space narrowing. Mild tricompartmental osteophytosis. Small volume joint fluid. No erosion or periosteal change. 1.5 x 2.3 cm nodular soft tissue opacity in the posterior medial soft tissues, 9.7 cm above the joint line. IMPRESSION: Tricompartmental osteoarthritis, moderate in the medial compartment. Small right knee joint effusion. Nodular soft tissue opacity may represent a lymph node or venous dilation. Correlate for clinical fin dings of lower extremity infection or venous insufficiency. Reviewed, dictated and finalized at location K. IMPRESSION: Tricompartmental osteoarthritis, moderate in the medial compartment. Small right knee joint effusion. Nodular soft tissue opacity may represent a lymph node or venous dilation. Nathanael elate for clinical findings of lower extremity infection or venous insufficienc yDashawn
--- NOTE | ~2023-06-14 | XR_ITS ---
EXAMINATION: XR hip RT min 2V DATE: 06/14/2023 15:30 INDICATION: Chronic right hip pain. TECHNIQUE: 2 views of right hip were obtained. COMPARISON: Right hip radiographs 07/06/2011 FINDINGS: Bone alignment is normal. No fracture. There is mild right hip osteoarthritis characterized by a tiny osteophyte. No joint space narrowing. There are changes of anterior and posterior fusion p rocedures at L5-S1. IMPRESSION: 1. Mild right hip osteoarthritis. Reviewed, dictated and finalized at location A.
== END 2023-06-14 15:11 | disposition home or self-care (01) ==
PROVIDERS: PCP Nurse Practitioner Family; Visit Provider Nurse Practitioner Family
DX: M25.561 Pain in right knee (principal); M25.551 Pain in right hip; M17.11 Unilateral primary osteoarthritis, right knee; M16.11 Unilateral primary osteoarthritis, right hip; M25.461 Effusion, right knee
CPT/HCPCS: 73502; 73562

== ENCOUNTER 2023-06-17 10:52 | Outpatient (CLI) | payer OTHER, SELFPAY ==
[2023-06-17 11:08] LABS: Hematocrit 41.3 % (35.0-49.0); Hemoglobin 12.6 g/dL (12.0-15.0); Mean Corpuscular HGB Conc 30.5 g/dL (32-36); Mean Corpuscular Hemoglobin 27.3 pg (27.0-31.0); Mean Corpuscular Volume 89.4 fL (78.0-102.0); Mean Platelet Volume 9.5 fl (9.2-11.8); Platelet Count Result 291 K/mm3 (150-420); Red Blood Count 4.62 M/mm3 (4.20-5.40); Red Cell Distribution Width 13.3 % (11.6-14.4); White Blood Count 6.5 K/mm3 (4.8-10.8)
== END 2023-06-17 10:53 | disposition home or self-care (01) ==
LOC: CHSLAB 10:53
PROVIDERS: PCP Nurse Practitioner Family; Visit Provider Student in an Organized Health Care Education/Training Program
DX: Z01.818 Encounter for other preprocedural examination (principal); N92.0 Excessive and frequent menstruation with regular cycle
CPT/HCPCS: 36415; 85027

== ENCOUNTER 2023-06-23 02:53 | Day surgery (SDC) | payer OTHER, SELFPAY ==
[2023-06-16 15:50] VITALS: BMI 27.0
--- NOTE | 2023-06-16 15:56 | PC.NURSE ---
Report to the Outpatient Waiting Room, entrance under the green pavilion located off [facility], at time 6:00 on date 06/23/23. Planned Procedure Time: 7:30. Time changes happen often and if your time is changed the preop area will call you the afternoon before. - You and your visitor will be asked to self-screen and do not enter if you have any COVID symptoms. - A mask is optional within the hospital at this time. Patients may have clear liquids (water, carbonated beverages, clear teas, apple juice) until 3 hours prior to surgery with a maximum of 20 ounces. - No food from midnight until time of surgery Take the following medications with a SIP of water the morning of surgery: ALPRAZOLAM IF NEEDED DO NOT STOP ANY OF YOUR OTHER PRESCRIPTION MEDICATIONS PRIOR TO SURGERY ?EXCEPT THE FOLLOWING Medications to discontinue per physician: IBUPROFEN Date to take last dose: PER DR. FRYE Please no make-up, nail irish, hairspray, perfume, deodorant, or body powder the day of surgery. No jewelry (including any body piercings) or valuables the day of surgery, leave them at home. Please take a shower or bath the night before, or the morning of, surgery with an antibacterial soap. Wear comfortable, loose fitting clothing. - Jewelry must be removed prior to entering the operating room. Rings and piercings that are not removed may be cut off. - The hospital will not accept responsibility for valuables. - Please leave all valuables, including medications, at home the day of surgery. If you are going home after surgery, a licensed funeral car driver must drive you home. - NO public transportation without another adult if you receive anesthesia. - We recommend that an adult stay with you for 24 hours following discharge. - We also recommend that you do not drive, make important decision, drink alcoholic beverages, or take any drugs that were not prescribed by your health care provider for at least 24 hours after your discharge time. Follow any additional instructions given to you from your surgeon. If you or anyone in your household have experienced Covid symptoms in the past week, please notify your surgeon or the nurse liaison at the phone number below for possible testing. Telephone instructions given to PT - DILMA STEARNS and asked if any additional questions and then verbalized understanding. Patient advised to call surgeon office or pre surgery nurse liaison [phone] if any additional questions.
--- NOTE | 2023-06-22 15:56 | PM.IMHP ---
H&P: HPI History of Present Illness Date/Time: 06/22/23 15:56 Chief Complaint: abnormal uterine bleeding pelvic pain uterine fibroid Narrative: 43-year-old female who presents for robotic hysterectomy for pelvic pain and irregular bleeding.? Patient has dealt with dysmenorrhea and bleeding issues for some time.? Patient had hysteroscopy, D&C, endometrial ablation in 2021 patient states she never had amenorrhea and continued to have regular cycles.? Patient states she has regular breakthrough bleeding as well. patient states her bleeding is manager payment and more tolerable after ablation but still irregular.? Patient states her menses are extremely painful.?Pelvic US was obtained and showed a 9.1 cm uterine fibroid. She also states that her PMDD is so severe that it has caused her to start antidepressants.? Patient was recently started on Seroquel.? Review of Systems Cardiovascular: Cardiovascular: Denies chest pain, Denies leg edema, Denies palpitations, Denies dyspnea and Denies dyspnea on exertion Respiratory: Respiratory: Denies cough, Denies dyspnea and Denies dyspnea on exertion Gastrointestinal: Gastrointestinal: Denies abdominal pain, Denies constipation, Denies diarrhea, Denies nausea and Denies vomiting Genitourinary: Genitourinary: Denies hematuria, Denies urinary frequency, Denies dysuria, Denies pelvic pain, Denies urinary incontinence and Denies vaginal discharge Neurologic: Reports system reviewed and no additional complaints, except as documented Psychiatric: Psychiatric: Reports no additional psychiatric complaints Endocrine: Endocrine: Denies palpitations PMF Past Medical History Medical History Acute acalculous cholecystitis Chronic pain dilaudid pain pump - not for years - only when she had pancreatitis Chronic pancreatitis Degenerative arthritis of lumbar spine Femur fracture AVRIL (generalized anxiety disorder) GERD (gastroesophageal reflux disease) History of vaginal delivery x2 HSV infection Irritable bowel syndrome Marijuana smoker Osteoarthritis of right knee Pelvis fracture PMDD (premenstrual dysphoric disorder) Pseudocyst of pancreas Screening mammogram for breast cancer Skull fracture Surgical History Surgical History H/O colonoscopy with polypectomy 05/2021 H/O gynecological procedure mirena iud insertion 05/15/2007 mirena iud removal 06/13/2007 H/O tubal ligation History of back surgery History of breast lump/mass excision History of section x 1 History of cholecystectomy History of endometrial ablation Family History Family History Father Hypertension Asthma Depression Sibling , Brother - MVA Motor vehicle accident victim Diabetes mellitus Depression Other Breast cancer Grandparent History of cancer Social History Social History Smoking status: Never smoker Second hand tobacco smoke exposure: Yes Smoking end date: 04/04/09 Additional smoking assessment comments: smoking 10 years 1ppd Alcohol intake: never Substance use: current Substance use type: marijuana Other substance usage details: medical marijuana Last use: Marijuana at midnight 11/21 Do You Feel Safe in your Home?: Yes Lack of Transportation: No Lack of Food: Never True Current Housing: I Have Housing Concerned About Future Housing: No Difficulty Paying Gas/Electric Bills: No Difficulty Paying for Meds: No Currently Unemployed: No Education: High School Diploma/GED Difficulty w/ Childcare or Family Care: No Living arrangements: with family Occupation/Education: occupation Gender identity (if verbalized by the patient): Female Sexual Orientation (if Verbalized by the Patient): Straight or Heterosexual Spiritual care
[2023-06-23] VITALS (14 sets, daily range): BP systolic 116–145; BP diastolic 66–90; PULSE 57–74; RESP 14–21; TEMP 36.1–37.1; O2SAT 94–100
--- NOTE | 2023-06-23 06:53 | WPDANESEPPF ---
Anes - Initial Pre Proc Eval Procedure: Operation Date: 06/23/23 07:30 Proposed Procedures p Robotic Assisted Total Laparoscopic Hysterectomy with Bilateral Salpingectomy - Marcos Hunt MD Date/Time: 06/23/23 06:53 Surgeon: Marcos Hunt MD Pre Op Diagnosis: abnormal uterine bleeding Patient Data Age: 43 Gender: F Height: 1.61 m Weight: 70.35 kg Allergies Allergy/AdvReac Type Severity Reaction Status Date / Time No Known Allergies Allergy Unknown Verified 06/16/23 15:49 Home Medications Medication Instructions Recorded Confirmed Type quetiapine 100 mg tablet 100 mg PO QHS #30 tabs 05/24/23 06/16/23 Rx alprazolam 0.5 mg tablet 0.5 mg PO PRN PRN anxiety #20 tabs 06/02/23 06/16/23 Rx ibuprofen 800 mg tablet 800 mg PO TID PRN pain #90 tabs 06/14/23 06/16/23 Rx Patient hx anesthesia problems: none Family hx anesthesia problems: none Results Review: All pre-operative results and documents have been reviewed as part of the pre-operative evaluation. [facility] Past Medical History Medical History Acute acalculous cholecystitis Chronic pain dilaudid pain pump - not for years - only when she had pancreatitis Chronic pancreatitis Degenerative arthritis of lumbar spine Femur fracture AVRIL (generalized anxiety disorder) GERD (gastroesophageal reflux disease) History of vaginal delivery x2 HSV infection Irritable bowel syndrome Marijuana smoker Osteoarthritis of right knee Pelvis fracture PMDD (premenstrual dysphoric disorder) Pseudocyst of pancreas Screening mammogram for breast cancer Skull fracture Surgical History Surgical History H/O colonoscopy with polypectomy 05/2021 H/O gynecological procedure mirena iud insertion 05/15/2007 mirena iud removal 06/13/2007 H/O tubal ligation History of back surgery History of breast lump/mass excision History of section x 1 History of cholecystectomy History of endometrial ablation Family History Family History Father Hypertension Asthma Depression Sibling , Brother - MVA Motor vehicle accident victim Diabetes mellitus Depression Other Breast cancer Grandparent History of cancer Social History Social History (Updated 06/23/23 @ 06:54 by Eze Willingham MD) Smoking status: Former smoker Second hand tobacco smoke exposure: Yes Smoking end date: 04/04/09 Additional smoking assessment comments: smoking 10 years 1ppd Alcohol intake: never Substance use: current Substance use type: marijuana Other substance usage details: medical marijuana Last use: Marijuana at midnight 11/21 Do You Feel Safe in your Home?: Yes Lack of Transportation: No Lack of Food: Never True Current Housing: I Have Housing Concerned About Future Housing: No Difficulty Paying Gas/Electric Bills: No Difficulty Paying for Meds: No Currently Unemployed: No Education: High School Diploma/GED Difficulty w/ Childcare or Family Care: No Living arrangements: with family Occupation/Education: occupation Gender identity (if verbalized by the patient): Female Sexual Orientation (if Verbalized by the Patient): Straight or Heterosexual Spiritual care concerns: No Agree to blood products: Yes Anes - Eval Final PreProcedure Day of Procedure 06/23/23 06:53 Patient weight: overweight Heart: regular rate and rhythm Lungs: clear to auscultation Airway: Mallampati scale class II Neurological: alert and oriented Last oral intake: >/= 8 hours ASA classification: III Emergent: no Anesthetic plan: proceed Anesthesia type and monitoring: general ETT and standard monitoring Results Review: All pre-operative results and documents have been reviewed as part of the pre-operative evaluation. Informed Consent: The patient's anesthetic plan an
[2023-06-23] MEDS: KETOROLAC 15 MG/ML VIAL (*BKC) IV PUSH (07:00)
[2023-06-23] MEDS: LACTATED RINGERS 1,000 ML 30 ML IV CONT ×2 (07:00→09:24)
[2023-06-23] MEDS: ACETAMINOPHEN 500 MG TABLET 1000 MG PO (07:00)
[2023-06-23] MEDS: SCOPOLAMINE 1 MG PATCH 1 PATCH TRANSDERM (07:11)
--- NOTE | 2023-06-23 07:13 | WPDHPUPDATE1 ---
History and Physical Update Update Date/Time: 06/23/23 07:13 History and Physical has been reviewed, including an updated exam of the patient. There are NO changes in the patient's condition. Risks, benefits, and alternatives have been discussed and questions answered. Patient agrees to proceed with procedure.
[2023-06-23] MEDS: ceFAZolin 2 GM/D5W 50 ML 2 GM/50 ML BAG IVPB (07:26)
[2023-06-23] MEDS: LIDO 1%/EPINEPHRINE 1:100,000 50 ML VIAL 30 ML INFILTRATE (08:00)
--- NOTE | 2023-06-23 09:04 | W.PM.PROC2 ---
Procedure Note - Detailed Date of Procedure 06/23/23 Pre-op Diagnosis abnormal uterine bleeding pelvic pain uterine fibroid Post-op Diagnosis Same Procedure Performed robotic assisted TLH/BS, right oophorectomy Surgeon Marcos Hunt MD Anesthesia General Indications pelvic pain abnormal uterine bleeding uterine fibroid Findings bilateral tubal ligation, enlarged uterus with subserosal fibroid, normal appearing ovaries Description of Procedure PROCEDURE IN DETAIL: After the patient was appropriately consented she was taken to the operating room where she was transferred to the table in a dorsal supine position. General anesthesia was then induced with endotracheal intubation. The patient was transferred to a dorsal lithotomy position using adjustable yellow-fin stirrups. Her position was adjusted for appropriate support of her lower back and lower extremities. The patient was prepped and draped. A transurethral salinas catheter was place. The cervix was sequentially dilated and a SUE uterine manipulator placed in typical fashion about a 3.5 cm BOO ring. Gloves were changed. After confirmation of a functioning orogastric tube, lidocaine was injected at Schmitz's point in the LUQ and a 5mm incision was made. A 5mm Optiview trocar was then inserted into the abdominal cavity under direct visualization and done so without complication. The abdomen was then insufflated with approximately 2-3L of CO2 establishing a pneumoperitoneum and the patient was placed in Trendelenburg position. Just above the umbilicus in the midline, a 8 mm incision made after injection of lidocaine and a 8 mm bladeless trocar advanced into the abdominal cavity under direct visualization without incident. We subsequently placed two robotic ports in a similar fashion, one in the left mid-quadrant and one in the right, 10cm lateral to the midline port. The robot was then docked. The left fallopian tube was identified out to the fimbrae. The fallopian tube was then coagulated and ligated along the inferior mesosalpinx toward the uterus. The utero-ovarian ligament was identified and ligated. The left round ligament was divided and the posterior aspect of the broad ligament was then skeletonized down to the level of the internal cervical os, mobilizing the ureter laterally. The bladder flap was then created sharply. The ipsilateral uterine artery was skeletonized, bipolar cauterized and transected. A similar procedure was performed on the contralateral side, developing the pelvic spaces, coagulating and dividing the IP away from the ureter, completing the bladder flap, and skeletonizing, ligating, and dividing the uterine artery on this side. The large 9 cm subserosal fibroid was obscuring the Right lateral aspect of the uterus and it's vessels. The ovarian fossa was filled with the fibroid. After dissecting to reveal the right uterine vessesl, it was felt that the right ovarian stalk had been compromised due to the distorted anatomy from the fibroid. There was concern for potential torsion. Decision was made to remove the right ovary for risk of torsion/strangulation. The right ovarian vessels were ligated and transection. We ensured the vaginal pneumo-occluder balloon was insufflated and made a circumferential colpotomy using monopolar current. Due to the large size of the uterus and fibroid, the uterus was bivalved using monopolar energy. The uterine fibroid was then dissected to 2 separate pieces to allow removal through the vagina. The uterus, cervix, bilateral tubes, And right ovary were then delivered transvaginally. I then re-approximated the colpotomy with a single interuppted 0-vicryl at the left apex and running #1 PDO Quill suture in 2 layers. Following this dissection, the abdomen and pelvis were copiously irrigated and all surgical sites found to be hemostatic. Skin sites were reapproximated with 4-0 Vicryl in a subcuticular fashion. Steri-Strips were placed. The patient tolerate
[2023-06-23] MEDS: fentaNYL CITRATE INJ (*CRX) 100 MCG/2 ML VIAL 25 MCG IV PUSH ×6 (10:15→11:08)
[2023-06-23] MEDS: HYDROcodone/acetaminophen (*CRX) 10-325 MG TABLET 1 TAB PO ×3 (12:05→21:18)
[2023-06-23] MEDS: DEXTROSE 5%/LACTATED RINGERS 1,000 ML 125 ML IV CONT (14:09)
--- NOTE | 2023-06-23 15:50 | PM.DS ---
DS: Admitting Diagnosis Discharge Date 06/24/23 Admitting Diagnosis pelvic pain abnormal uterine bleeding uterine fibroid DS: Discharge Diagnosis Discharge Diagnosis (1) Uterine fibroid: Code(s): D25.9 - Leiomyoma of uterus, unspecified Status: Acute (2) Abnormal uterine bleeding (AUB): Code(s): N93.9 - Abnormal uterine and vaginal bleeding, unspecified Status: Acute (3) Pelvic pain: Code(s): R10.2 - Pelvic and perineal pain Status: Acute DS: Summary Hospital Course Hospital Course: Janice Sahu was admitted after robotic assisted total laparoscopic hysterectomy and bilateral salpingo-oophorectomy for abnormal uterine bleeding. The above procedure was performed with no complications. She is doing well post op. She states her pain is well controlled with PO medications. She reports minimal bleeding. She is ambulating up to the chair. Her salinas catheter was removed. She is tolerating PO without N/V. She reports passing flatus. Status at Discharge Overall status at discharge: patient is progressing back to baseline Time Spent with Patient Time attestation: Total time spent providing and/or coordinating discharge services: Time spent: Less than 30 minutes Exam Const: General: comfortable and no acute distress Limitations: no limitations Resp: Effort & Inspection: normal respiratory effort Auscultation: clear to auscultation bilaterally Cardio: Rate: regular rate Rhythm: regular rhythm GI: Inspection: non-distended GI Palp: Yes Soft to palpation, Yes Tenderness to palpation present (GI) (milder tenderness to deep palpation) and No Guarding due to palpation present (GI) Auscultation: normal bowel sounds Other: incisions C/D/I covered with dermabond Urinary Catheter: Urinary Catheter: urine clear Skin: General skin exam: normal color Extrem: General: normal to inspection Psych: Mental Status: mental status grossly normal Affect: normal affect DS: Data Data Completed and Pending Pending studies at discharge: Pending at discharge 06/23/23 08:50 Surgical [PTH] Routine Labs on day of discharge: Labs from last 24 hours 06/23/23 06:46 Blood Type O Negative Antibody Screen Negative Discharge Plan Discharge Patient Disposition: Home, Self-Care Patient Instructions: Hysterectomy (DC) Stand Alone Forms: General Discharge Instructions Follow-up/Referrals: Marcos Hunt MD [Physician] - 2 Weeks Discharge Medications: New hydrocodone-acetaminophen 5-325 mg tablet 1 tablet PO Q6H PRN (Reason: pain) Qty: 28 0RF ibuprofen 600 mg tablet 600 mg PO Q6H PRN (Reason: pain) Qty: 30 0RF Continued quetiapine 100 mg tablet 100 mg PO QHS Qty: 30 2RF alprazolam 0.5 mg tablet 0.5 mg PO PRN PRN (Reason: anxiety) Qty: 20 0RF ibuprofen 800 mg tablet 800 mg PO TID PRN (Reason: pain) Qty: 90 0RF
[2023-06-23] MEDS: KETOROLAC 30 MG/ML VIAL (*BKC) IV PUSH ×2 (16:49→23:04)
[2023-06-23] MEDS: SIMETHICONE 80 MG TAB.CHEW PO (16:49)
[2023-06-23] MEDS: QUEtiapine FUMARATE 100 MG TABLET PO (21:10)
[2023-06-23] MEDS: SENNA/DOCUSATE SODIUM TABLET 2 TAB PO (21:10)
[2023-06-23] MEDS: DEXTROSE 5%/LACTATED RINGERS 1,000 ML 999 ML IV CONT (21:20)
[2023-06-24 04:12] VITALS: BP 101/61; PULSE 76; RESP 18; TEMP 36.9; O2SAT 97
[2023-06-24] MEDS: HYDROcodone/acetaminophen (*CRX) 10-325 MG TABLET 1 TAB PO ×3 (04:15→10:57)
[2023-06-24 05:16] LABS: Basophils Percent Auto 0.2 % (0.2-1.2); Eosinophils Percent Auto 0.1 % (0-4.4); Hemoglobin 11.9 g/dL (12.0-15.0); Immature Granulocyte Absolute 0.06 K/mm3 (0.00-0.031); Immature Granulocyte Percent A 0.5 % (0-0.5); Lymphocytes Percent Auto 6.8 % (18.3-44.2); Mean Corpuscular HGB Conc 31.3 g/dl (32-36); Mean Corpuscular Hemoglobin 28.1 pg (26-34); Mean Corpuscular Volume 89.8 fl (80-100); Mean Platelet Volume 10.1 fl (7.4-10.4); Monocytes Absolute Auto 1.1 K/mm3 (0.1-0.6); Monocytes Percent Auto 8.2 % (2.6-8.5); Neutrophils Absolute Auto 11.1 K/mm3 (1.3-6.7); Neutrophils Percent Auto 84.2 % (45.5-73.1); Platelet Count Result 275 k/mm3 (150-375); Red Blood Count 4.23 M/mm3 (4.2-5.4); Red Cell Distribution Width 13.9 % (11.5-14.5); White Blood Count 13.2 K/mm3 (4.5-10.0)
[2023-06-24 05:32] LABS: Anion Gap 0 mmol/L (8-16); Blood Urea Nitrogen 13 mg/dL (7-17); Calcium 8.1 mg/dL (8.4-10.2); Carbon Dioxide 27 mmol/L (22-30); Chloride 107 mmol/L (98-107); Estimated CRCL calculation 74 ml/min; Estimated Glomerular Filt Rate > 60; Glucose 96 mg/dL (65-110); Potassium 3.8 mmol/L (3.4-5.0); Sodium 134 mmol/L (137-145)
--- NOTE | 2023-06-24 07:23 | P.PNAN_ITS ---
Anes - Prog Note Post-Op Date/Time: 06/24/23 07:23 Cardiovascular status: normal Respiratory status: normal Airway patency: baseline Mental status: baseline Post-Op hydration status: normal Vital Signs: Last Vital Signs Temp 36.9 C 06/24/23 04:12 Pulse 76 06/24/23 04:12 Resp 18 06/24/23 04:12 BP 101/61 06/24/23 04:12 Pulse Ox 97 06/24/23 04:12 O2 Del Method Room Air 06/23/23 17:03 O2 Flow Rate 8 06/23/23 09:55 Pain Score (VAS): 2 I/O: Intake & Output 06/23/23 06/23/23 06/24/23 15:59 23:59 07:59 Intake Total 650 1906.1 833.9 Output Total 120 325 725 Balance 530 1581.1 108.9 Laboratory Tests 06/24/23 04:41 06/24/23 04:41 06/23/23 06/24/23 06:46 04:41 WBC 13.2 H RBC 4.23 Hgb 11.9 L Hct 38.0 MCV 89.8 MCH 28.1 MCHC 31.3 L RDW 13.9 Plt Count 275 MPV 10.1 Immature Gran % (Auto) 0.5 Neut % (Auto) 84.2 H Lymph % (Auto) 6.8 L [place] % (Auto) 8.2 Eos % (Auto) 0.1 Baso % (Auto) 0.2 Lymph # (Auto) 0.90 [place] # (Auto) 1.1 H Eos # (Auto) 0.0 Baso # (Auto) 0.0 Abs Immat Gran (auto) 0.06 H Absolute Neuts (auto) 11.1 H Absolute Nucleated RBC 0.000 Nucleated RBC % 0.0 Sodium 134 L Potassium 3.8 Chloride 107 Carbon Dioxide 27 Anion Gap 0 L BUN 13 Creatinine 0.80 Estim Creat Clear Calc 74 Estimated GFR > 60 Glucose 96 Calcium 8.1 L Blood Type O Negative Antibody Screen Negative Post-procedural complaints: none Patient Feedback: Patient satisfied with anesthetic care.
[2023-06-24 07:35] VITALS: PULSE 76; RESP 18; O2SAT 97
[2023-06-24 07:55] VITALS: BP 115/71; PULSE 70; RESP 16; TEMP 37.4; O2SAT 98
[2023-06-24] MEDS: SIMETHICONE 80 MG TAB.CHEW PO (07:57)
[2023-06-24] MEDS: IBUPROFEN 600 MG TABLET PO (07:57)
== END 2023-06-24 11:12 | disposition home or self-care (01) ==
LOC: ANHSURGERY 05:59 → ANHOB2 11:45
PROVIDERS: PCP Nurse Practitioner Family; Visit Provider Student in an Organized Health Care Education/Training Program
PROC: (CPT 58573; principal; 2023-06-23 07:30)
DX: D25.1 Intramural leiomyoma of uterus (principal); D25.2 Subserosal leiomyoma of uterus; N93.9 Abnormal uterine and vaginal bleeding, unspecified; N83.8 Other noninflammatory disorders of ovary, fallopian tube and broad ligament; N83.01 Follicular cyst of right ovary; F41.1 Generalized anxiety disorder; F32.81 Premenstrual dysphoric disorder; K86.1 Other chronic pancreatitis; Z87.891 Personal history of nicotine dependence
CPT/HCPCS: 58573; S2900; 36415; 80048; 85025; 86850; 86900; 86901; 88307; 99199; A9270; J0690; J1100; J1170; J1885; J2250; J2405; J2704; J3010; J7030; J7120; J7121

== ENCOUNTER 2023-06-25 19:30 | Observation (INO) | payer OTHER, SELFPAY ==
--- NOTE | ~2023-06-25 | CT_ITS ---
EXAMINATION: CTA chest PE protocol DATE: 06/25/2023 21:38 INDICATION: elevated ddimer, chest pain/ SOB TECHNIQUE: Computed tomography angiography (CTA) of the chest was performed with 100 mL Omnipaque-350 intravenous contrast timed to evaluate the pulmonary arteries. Coronal maximum intensity projection 3D-reconstructions were created by the technologist. The dose-length product (DLP) was 504.71 mGy-cm. Automated exposure control and iterative reconstruction technique were employed. COMPARISON: CT abdomen pelvis, same date. FINDINGS: Lung parenchyma and airways: Discoid atelectasis and dependent subsegmental consolidative opacity in the bilateral lower lobes. The airways are clear. Pleura: Small bilateral pleural fluid collections. Thoracic inlet, axillae and chest wall: Extensive subcutaneous gas over the anterior chest. Thoracic aorta: No significant dilation. No dissection. Mediastinum: Normal. Heart and pericardium: Normal. Coronary artery calcifications: Absent. Upper abdomen: Please refer to the report on the concurrent CT abdomen and pelvis. Bones: No acute osseous finding. Pulmonary arteries: Study quality: Study limited by borderline contrast bolus, beam hardening at the superior vena cava from contrast, and arm down positioning, such that subsegmental arteries are poorl y evaluated. No central, interlobar, or segmental pulmonary emboli detected. IMPRESSION: Limited evaluation of the subsegmental pulmonary arteries. No CT evidence of acute central, interloba r, or segmental pulmonary embolus. Bilateral lower lobe discoid atelectasis and subsegmental dependent atelectasis/consolidation. Small bilateral pleural effusions. Reviewed, dictated and finalized at location K. IMPRESSION: Limited evaluation of the subsegmental pulmonary arteries. No CT evidence of ac douglas central, interlobar, or segmental pulmonary embolus. Bilateral lower lobe discoid atelectasis and subsegmental dependent atelectasis /consolidation. Small bilateral pleural effusions.
--- NOTE | ~2023-06-25 | CT_ITS ---
EXAMINATION: CT abdomen pelvis w con DATE: 06/26/2023 08:46 INDICATION: Abdominal pain. Status post recent hysterectomy. TECHNIQUE: Computed tomography (CT) of the abdomen and pelvis was performed with 100 cc Omnipaque 350 intravenous contrast. The dose-length product was 473.38 mGy-cm. Automated exposure control and iter ative reconstruction technique were employed. Automated exposure control and iterative reconstruction technique were employed. COMPARISON: CT dated 06/25/2023 FINDINGS: There is extensive subcutaneous emphysema of the abdominal wall. Small pleural effusions wi th bibasilar atelectasis. There is large amount of free air in the abdomen, consistent with recent gayle rgery. Small amount of free fluid. No abscess identified. Status post cholecystectomy. There are live r cysts. The spleen, adrenal glands and kidneys are unremarkable. There are liver cysts. There are cy sts of the pancreatic neck, largest measuring approximately 2 x 0.9 cm. Status post cholecystectomy. Nonobstructive bowel gas pattern. There is gas in the bladder lumen, likely from instrumentation. IMPRESSION: 1. Extensive subcutaneous emphysema and free intraperitoneal air, likely postoperative. No abscess id entified. 2: Pancreatic cysts. The differential diagnosis includes pseudocyst, intraductal papillary mucinous n eoplasm (IPMN), mucinous cystic neoplasm (MCN), and the less common serous cystadenoma and neuroendoc rine tumor. 3: Small pleural effusions with underlying compressive atelectasis. Reviewed, dictated and finalized at location A. IMPRESSION: 1. Extensive subcutaneous emphysema and free intraperitoneal air, likely postop erative. No abscess identified. 2: Pancreatic cysts. The differential diagnosis includes pseudocyst, intraducta l papillary mucinous neoplasm (IPMN), mucinous cystic neoplasm (MCN), and the l ess common serous cystadenoma and neuroendocrine tumor. 3: Small pleural effusions with underlying compressive atelectasis.
--- NOTE | ~2023-06-25 | CT_ITS ---
EXAMINATION: CT abdomen pelvis wo con DATE: 06/25/2023 20:13 INDICATION: S/P hysterectomy 2 DAYS AGO, abdominal pain/swelling TECHNIQUE: Computed tomography (CT) of the abdomen and pelvis was performed without intravenous contr ast. Automated exposure control and iterative reconstruction technique were employed. The dose-length product was 584.19 mGy-cm. COMPARISON: 11/23/2020. FINDINGS: Lower thorax: Bibasilar dependent consolidation. Small bilateral pleural effusions. Liver: Simple right lobe cysts. Biliary/Gallbladder: Gallbladder is absent. Stable common duct dilation likely secondary to cholecyst ectomy. Pancreas: Increased dilation of the pancreatic ducts. Cystic lesion at the pancreatic head. Mild stra nding surrounding the pancreatic head and body. Spleen: Normal. Adrenals:No mass. Kidneys: No suspicious mass, obstructing stone, or hydronephrosis. GI tract: No small or large bowel dilation. Normal appendix. Mesentery/Peritoneum: Moderate volume intraperitoneal gas. Retroperitoneum: No mass. Pelvis: Absent uterus. Normal left ovary. Right ovary not confidently identified. Gas in the urinary bladder, probably secondary to recent catheterization. Small volume hyperdense fluid in the deep pelv is. Soft Tissues: Extensive subcutaneous gas in the anterior and lateral soft tissues of the chest and ab domen also extending into the inferior bilateral breasts, more so on the left. Bones: No acute osseous finding. Uncomplicated appearing L5-S1 posterior fusion hardware. IMPRESSION: Bibasilar dependent atelectasis/consolidation. Small bilateral pleural effusions. Increasing pancreatic duct dilation with the suggestion of surrounding peripancreatic inflammatory ch shaun that also appears slightly increased, correlate with pancreatic labs. The pancreatic head lesion is poorly evaluated without contrast. Moderate volume intraperitoneal gas. Small volume hyperdense deep pelvic fluid, likely representing postoperative blood/hematoma. Active e xtravasation cannot be assessed without contrast. Extensive subcutaneous gas in the anterolateral abdominal soft tissues and lower chest. Reviewed, dictated and finalized at location K. IMPRESSION: Bibasilar dependent atelectasis/consolidation. Small bilateral pleural effusion s. Increasing pancreatic duct dilation with the suggestion of surrounding peripanc reatic inflammatory change that also appears slightly increased, correlate with pancreatic labs. The pancreatic head lesion is poorly evaluated without contra st. Moderate volume intraperitoneal gas. Small volume hyperdense deep pelvic fluid, likely representing postoperative bl ood/hematoma. Active extravasation cannot be assessed without contrast. Extensive subcutaneous gas in the anterolateral abdominal soft tissues and lowe r chest.
[2023-06-25 19:40] VITALS: BP 144/90; PULSE 98; RESP 20; TEMP 37.4; O2SAT 95
--- NOTE | 2023-06-25 19:51 | ED.GENADULT ---
HPI - General Adult General Chief complaint: Unspecified Stated complaint: S/P pain Time Seen by Provider: 06/25/23 19:31 Source: patient Mode of arrival: ambulatory History of Present Illness HPI narrative: Patient is a 43 year old female with a significant PMH that presents today with abdominal pain. Patient recently had surgery a hysterectomy and is s/p 2 days. She says that she has had bad abdominal pain that has also been felt in her chest. She says she has also had some SOB. She has been taking the pain killers as prescribed but states the pain is still around a 5/10. She has minor spotting but passing no clots. Onset (ago): day(s) Location: abdomen Radiation: non-radiation Severity: moderate Severity scale (1-10): 5 Quality: aching Pain Consistency: constant Relieving factors: none Exacerbating factors: none Associated symptoms: denies other symptoms Treatments prior to arrival: none Related Data Home Medications Medication Instructions Recorded Confirmed alprazolam 0.5 mg tablet 0.5 mg PO PRN PRN Anxiety 06/25/23 06/25/23 Allergies Allergy/AdvReac Type Severity Reaction Status Date / Time No Known Allergies Allergy Unknown Verified 06/23/23 07:11 Review of Systems Review of Systems: All systems reviewed & are unremarkable except as noted in HPI and below Constitutional: Constitutional: Reports no additional constitutional complaints Eyes: Eyes: Reports no additional eye complaints ENT: Reports system reviewed and no additional complaints, except as documented Cardiovascular: Cardiovascular: Reports no additional cardiovascular complaints Respiratory: Respiratory: Reports no additional respiratory complaints Gastrointestinal: Gastrointestinal: Reports as per HPI Genitourinary: Genitourinary: Reports no additional female genitourinary complaints Musculoskeletal: Musculoskeletal: Reports no additional musculoskeletal complaints Integumentary/Breasts: Skin/Breast: Reports system reviewed and no additional complaints, except as docu Neurologic: Reports system reviewed and no additional complaints, except as documented Psychiatric: Psychiatric: Reports no additional psychiatric complaints Endocrine: Endocrine: Reports no additional endocrine complaints Hematologic/Lymphatic: Hematologic/Lymphatic: Reports no additional hematologic/lymphatic complaints Allergic/Immunologic: Allergic/Immunologic: Reports no additional allergic/immunologic complaints PMFSH Past Medical History Medical History Acute acalculous cholecystitis Chronic pain dilaudid pain pump - not for years - only when she had pancreatitis Chronic pancreatitis Degenerative arthritis of lumbar spine Femur fracture AVRIL (generalized anxiety disorder) GERD (gastroesophageal reflux disease) History of vaginal delivery x2 HSV infection Irritable bowel syndrome Marijuana smoker Osteoarthritis of right knee Pelvis fracture PMDD (premenstrual dysphoric disorder) Pseudocyst of pancreas Screening mammogram for breast cancer Skull fracture Surgical History Surgical History H/O colonoscopy with polypectomy 05/2021 H/O gynecological procedure mirena iud insertion 05/15/2007 mirena iud removal 06/13/2007 H/O tubal ligation History of back surgery History of breast lump/mass excision History of section x 1 History of cholecystectomy History of endometrial ablation Family History Family History Father Hypertension Asthma Depression Sibling , Brother - MVA Motor vehicle accident victim Diabetes mellitus Depression Other Breast cancer Grandparent History of cancer Social History Social History Smoking status: Former smoker Second hand tobacco smoke exposure: Yes Smoking end date: 0
[2023-06-25 20:04] LABS: Basophils Absolute Auto 0.01 K/mm3 (0.00-0.10); Basophils Percent Auto 0.1 % (0.0-1.0); Eosinophils Absolute Auto 0.35 K/mm3 (0.02-0.50); Eosinophils Percent Auto 3.2 % (1.0-6.0); Hematocrit 38.8 % (35.0-49.0); Hemoglobin 12.1 g/dL (12.0-15.0); Immature Granulocyte Absolute 0.03 K/mm3 (0.00-0.00); Immature Granulocyte Percent A 0.3 % (0.0-0.0); Lymphocytes Absolute Auto 1.52 K/mm3 (1.10-4.50); Lymphocytes Percent Auto 13.9 % (18.0-42.0); Mean Corpuscular HGB Conc 31.2 g/dL (32-36); Mean Corpuscular Hemoglobin 27.9 pg (27.0-31.0); Mean Corpuscular Volume 89.6 fL (78.0-102.0); Monocytes Absolute Auto 0.76 K/mm3 (0.10-0.90); Monocytes Percent Auto 6.9 % (2.0-11.0); Neutrophils Absolute Auto 8.27 K/mm3 (1.70-7.20); Neutrophils Percent Auto 75.6 % (50.0-70.0); Platelet Count Result 268 K/mm3 (150-420); Red Blood Count 4.33 M/mm3 (4.20-5.40); Red Cell Distribution Width 13.7 % (11.6-14.4); White Blood Count 10.9 K/mm3 (4.8-10.8)
[2023-06-25] MEDS: ONDANSETRON HCL ODT 4 MG TABLET PO (20:21)
[2023-06-25 20:22] LABS: Alanine Aminotransferase 20 U/L (14-59); Albumin Level 3.1 g/dL (3.4-5.0); Alkaline Phosphatase 49 U/L (46-116); Anion Gap 8 mmol/L (8-16); Aspartate Amino Transferase 16 U/L (15-37); Bilirubin,Total 0.4 mg/dL (0.00-1.00); Blood Urea Nitrogen 17 mg/dL (7-18); Calcium 8.6 mg/dL (8.5-10.1); Carbon Dioxide 31 mmol/L (21-32); Chloride 103 mmol/L (98-108); Estimated Glomerular Filt Rate > 60; Glucose 87 mg/dL (70-99); Osmolality Calculated 294 mOsm/kg (285-295); Potassium 3.9 mmol/L (3.5-5.1); Sodium 142 mmol/L (136-145); Total Protein 6.4 g/dL (6.4-8.2)
[2023-06-25 20:23] LABS: Lipase 2169 U/L (16-77)
[2023-06-25] MEDS: SODIUM CHLORIDE 0.9% IV 1,000 ML 999 ML IV CONT ×2 (20:38→22:08)
[2023-06-25 20:44] VITALS: BP 142/77; PULSE 85; RESP 20; TEMP 37.2; O2SAT 95
[2023-06-25 20:47] LABS: D Dimer 5.21 mg/L (0.19-0.50)
--- NOTE | 2023-06-25 21:00 | PC.NURSE ---
Pt resting, pillows for comfort given, Dr Young discussed need for CTA to R/O PE. Pt tearful, wanting pain medication. Orders obtained.
[2023-06-25] MEDS: MORPHINE SULFATE (*CRX) 4 MG/ML INJ IV PUSH (21:16)
[2023-06-25 21:55] VITALS: BP 121/82; PULSE 81; RESP 18; TEMP 37.1; O2SAT 96
--- NOTE | 2023-06-25 22:13 | PC.NURSE ---
Pt resting and reports feeling more comfortable, CTA report scan back and Flaco Hannah talking c pt and spouse about 23 hr obs admit for her pancreatitis. Pt is agreeable to admit for tonight.
--- NOTE | 2023-06-25 22:17 | PC.NURSE ---
Call placed to floor charge, Breana Mcgregor. Pt will go to Rm [id number] for obs admit.
[2023-06-25] MEDS: ALPRAZolam (*CRX) 0.5 MG TABLET PO (22:42)
[2023-06-25] MEDS: SODIUM CHLORIDE 0.9% IV 1,000 ML 150 ML IV CONT (22:43)
--- NOTE | 2023-06-25 23:14 | PC.NURSE ---
Awaiting call back from Rn to give report for pt admit. Call placed to floor, will call back shortly.
[2023-06-25 23:28] VITALS: BP 128/74; PULSE 87; RESP 18; TEMP 37.1; O2SAT 96
--- NOTE | 2023-06-25 23:52 | PC.NURSE ---
Patient admitted to [place] [id number], is alert and oriented and resting at present time.
[2023-06-25 23:56] VITALS: BMI 29.3
--- NOTE | 2023-06-26 00:10 | PC.NURSE ---
Pt requested Tramadol for pain relief. Dr Young notified and ordered tramadol 50 mg PO q 6 hrs PRN.
[2023-06-26] MEDS: traMADol HCL (*CRX) 50 MG TABLET PO (00:17)
[2023-06-26] MEDS: QUEtiapine FUMARATE 100 MG TABLET PO (00:18)
[2023-06-26 01:39] VITALS: BP 113/58; PULSE 73; RESP 18; TEMP 36.4; O2SAT 92
[2023-06-26] MEDS: MORPHINE SULFATE (*CRX) 2 MG/ML INJ IV PUSH ×2 (03:14→08:49)
--- NOTE | 2023-06-26 03:20 | PC.NURSE ---
Dr. Young notified to clarify IV fluid order. New orders recieved and noted.
[2023-06-26] MEDS: SODIUM CHLORIDE 0.9% IV 1,000 ML 125 ML IV CONT (03:24)
[2023-06-26 09:58] LABS: Basophils Absolute Auto 0.01 K/mm3 (0.00-0.10); Basophils Percent Auto 0.1 % (0.0-1.0); Eosinophils Absolute Auto 0.33 K/mm3 (0.02-0.50); Hematocrit 33.5 % (35.0-49.0); Hemoglobin 10.4 g/dL (12.0-15.0); Immature Granulocyte Absolute 0.03 K/mm3 (0.00-0.00); Immature Granulocyte Percent A 0.4 % (0.0-0.0); Lymphocytes Absolute Auto 0.77 K/mm3 (1.10-4.50); Lymphocytes Percent Auto 9.4 % (18.0-42.0); Mean Corpuscular Hemoglobin 27.9 pg (27.0-31.0); Mean Corpuscular Volume 89.8 fL (78.0-102.0); Mean Platelet Volume 9.3 fl (9.2-11.8); Monocytes Absolute Auto 0.58 K/mm3 (0.10-0.90); Monocytes Percent Auto 7.1 % (2.0-11.0); Neutrophils Absolute Auto 6.46 K/mm3 (1.70-7.20); Platelet Count Result 205 K/mm3 (150-420); Red Blood Count 3.73 M/mm3 (4.20-5.40); Red Cell Distribution Width 13.6 % (11.6-14.4); White Blood Count 8.2 K/mm3 (4.8-10.8)
[2023-06-26 10:12] LABS: Alanine Aminotransferase 15 U/L (14-59); Albumin Level 2.4 g/dL (3.4-5.0); Alkaline Phosphatase 38 U/L (46-116); Anion Gap 8 mmol/L (8-16); Aspartate Amino Transferase 13 U/L (15-37); Bilirubin,Total 0.4 mg/dL (0.00-1.00); Blood Urea Nitrogen 12 mg/dL (7-18); CRP 2.9 mg/dL (0.0-0.9); Calcium 7.7 mg/dL (8.5-10.1); Carbon Dioxide 26 mmol/L (21-32); Chloride 102 mmol/L (98-108); Estimated CRCL calculation 88 ml/min; Estimated Glomerular Filt Rate > 60; Glucose 69 mg/dL (70-99); Magnesium 1.5 mg/dL (1.8-2.4); Osmolality Calculated 279 mOsm/kg (285-295); Potassium 3.7 mmol/L (3.5-5.1); Sodium 136 mmol/L (136-145); Total Protein 5.2 g/dL (6.4-8.2)
[2023-06-26 10:17] LABS: Lactic Acid Reflex 0.7 mmol/L (0.4-2.0)
[2023-06-26 10:18] LABS: Lipase 1274 U/L (16-77)
--- NOTE | 2023-06-26 12:19 | PM.SD2 ---
Same Day Admit/Disch: HPI History of Present Illness Chief complaint: S/P pain Narrative: Danielle Marquez is a 43 year old female with a significant past medical history of pancreatitis, generalized anxiety disorder, GERD, irritable bowel syndrome, pseudocyst of pancreas, marijuana abuse who presented with abdominal pain and bloating. Patient recently had a laparoscopic hysterectomy done on 06/23/2023 due to pelvic pain and irregular bleeding. She states she came here because her abdomen felt very distended/ bloated and had some abdominal discomfort. Workup in the hospital included a CT of the abdomen pelvis without contrast which showed small bilateral pleural effusions, increasing pancreatic duct dilatation suggesting inflammatory changes, moderate volume intraperitoneal gas, small volume hyperdense deep pelvic fluid likely representing postoperative blood/hematoma, extensive subcutaneous gas in the anterior row lateral abdominal soft tissue and lower chest. She also had a chest CTA which was negative for any PE and showed bilateral lower lobe atelectasis, small bilateral pleural effusions. We repeated her abdomen pelvis CT with contrast and it revealed extensive subcutaneous emphysema and free intraperitoneal air likely postoperative, no abscess identified, pancreatic cysts, small pleural effusion with compressive atelectasis. Initial labs revealed a white blood cell count of 13.2, D-dimer 5.21, sodium 134, calcium 8.1, lipase 2169. Patient was given 2 L of IV fluids and started on maintenance IV fluids, given Xanax, Seroquel, Zofran, and pain medications while in the ED. On examination today patient is alert and oriented x3, sitting in the chair. She is very anxious and agitated. She states she just wants to go home. She also states that she did not come in for pancreatitis, she came in for the bloating and abdominal discomfort postsurgical, and she knows what to do for her pancreatitis at home. Labs today showed a white blood cell count of 8.2, hemoglobin was 10.4, magnesium was 1.5, C reactive protein was 2.9, lipase is down to 1274. she denies any fever, chills, nausea, vomiting, diarrhea, constipation, abdominal pain, chest pain, shortness a breath, headache. [facility] Past Medical History Medical History Acute acalculous cholecystitis Chronic pain dilaudid pain pump - not for years - only when she had pancreatitis Chronic pancreatitis Degenerative arthritis of lumbar spine Femur fracture AVRIL (generalized anxiety disorder) GERD (gastroesophageal reflux disease) History of vaginal delivery x2 HSV infection Irritable bowel syndrome Marijuana smoker Osteoarthritis of right knee Pelvis fracture PMDD (premenstrual dysphoric disorder) Post hysterectomy menopause Pseudocyst of pancreas Screening mammogram for breast cancer Skull fracture Surgical History Surgical History H/O colonoscopy with polypectomy 05/2021 H/O gynecological procedure mirena iud insertion 05/15/2007 mirena iud removal 06/13/2007 H/O tubal ligation History of back surgery History of breast lump/mass excision History of section x 1 History of cholecystectomy History of endometrial ablation Family History Family History Father Hypertension Asthma Depression Sibling , Brother - MVA Motor vehicle accident victim Diabetes mellitus Depression Other Breast cancer Grandparent History of cancer Social History Social History Smoking status: Never smoker Second hand tobacco smoke exposure: No Smoking end date: 04/04/09 Additional smoking assessment comments: smoking 10 years 1ppd Alcohol intake: never Substance use: current Substance use type: marijuana Other substance usage details: balbir villarreal
[2023-06-26] MEDS: HYDROcodone/acetaminophen (*CRX) 5-325 MG TABLET 1 TAB PO (12:20)
[2023-06-26] MEDS: MAGNESIUM OXIDE 400 MG TABLET PO (12:20)
[2023-06-26] MEDS: ALPRAZolam (*CRX) 0.5 MG TABLET PO (12:28)
--- NOTE | 2023-06-26 14:42 | PC.NURSE ---
Pt discharged to home and family care. Pt very emotional about surgery 2 days ago. Pt state no one said it would hurt this bad. Pt and spouse given discharge instructions. Pt taken by WC to family care.
--- NOTE | 2023-06-30 09:55 | PC.NURSE ---
Discharge call back attempted, no answer
== END 2023-06-26 12:50 | disposition home or self-care (01) ==
LOC: CHSED 22:20 → CHS2ND 22:59
PROVIDERS: Nurse Practitioner Acute Care; Admitting Provider Internal Medicine; Emergency Provider Family Medicine; PCP Nurse Practitioner Family; Visit Provider Internal Medicine
DX: K85.90 Acute pancreatitis without necrosis or infection, unspecified (principal); Z90.710 Acquired absence of both cervix and uterus; T81.82XA Emphysema (subcutaneous) resulting from a procedure, initial encounter; Y83.9 Surgical procedure, unspecified as the cause of abnormal reaction of the patient, or of later complication, without mention of misadventure at the time of the procedure; G89.18 Other acute postprocedural pain; K86.3 Pseudocyst of pancreas; F41.1 Generalized anxiety disorder; K21.9 Gastro-esophageal reflux disease without esophagitis; K58.9 Irritable bowel syndrome, unspecified; Z90.49 Acquired absence of other specified parts of digestive tract; Z87.891 Personal history of nicotine dependence; F12.10 Cannabis abuse, uncomplicated; Z79.891 Long term (current) use of opiate analgesic; Z79.1 Long term (current) use of non-steroidal anti-inflammatories (NSAID); Z79.899 Other long term (current) drug therapy
CPT/HCPCS: 36415; 71275; 74176; 74177; 80053; 83605; 83690; 83735; 85025; 85380; 86140; 96361; 96374; 96376; 99285; A9270; G0378; J2270; J7030; Q9967